=== PATIENT | female | born 1960 | race African-American/Black ===

== ENCOUNTER 2016-04-14 20:18 | Emergency (ER) | payer MEDICAID, OTHER ==
[2016-04-14] MEDS ORDERED: CYCLOBENZAPRINE 10MG STARTER 3 TAB BTL PO STA (21:09)
[2016-04-14] MEDS ORDERED: IBUPROFEN 600 MG STARTER PACK 4 TAB BTL PO STA (21:10)
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
[2016-04-14 21:30] VITALS: BP 120/70; PULSE 72; RESP 16; TEMP 97.6
--- NOTE | 2016-04-14 21:44 | XR ---
EXAMINATION TYPE: XR cervical spine comp DATE OF EXAM: 04/14/2016 9:06 PM COMPARISON: 08/25/2009 HISTORY: Trauma and pain TECHNIQUE: 5 views FINDINGS: C1-C7 is visualized on the lateral cervical spine view. Multilevel [id number]-br-[id number] cervical spondylosis appreciated. Accentuated lordotic curvature noted to o. There is no malalignment and no evidence of fracture. IMPRESSION: No acute radiographic process.
== END 2016-04-14 21:29 | disposition home or self-care (01) ==
LOC: EC 20:18
DX: S16.1XXA Strain of muscle, fascia and tendon at neck level, initial encounter (principal); V49.40XA Driver injured in collision with unspecified motor vehicles in traffic accident, initial encounter; Y92.410 Unspecified street and highway as the place of occurrence of the external cause; J45.909 Unspecified asthma, uncomplicated; Z79.51 Long term (current) use of inhaled steroids; Z88.0 Allergy status to penicillin; Z88.2 Allergy status to sulfonamides
CPT/HCPCS: 72050; 99283

== ENCOUNTER → 2016-04-25 | Outpatient (CLI) | payer MEDICAID ==
--- NOTE | 2016-04-25 18:15 | XR ---
EXAMINATION TYPE: XR lumbosacral spine min 4V DATE OF EXAM: 04/25/2016 5:42 PM COMPARISON: NONE HISTORY: Back pain TECHNIQUE: 5 views FINDINGS: Vertebra have normal alignment. Disc spaces are normal. Posterior elements appear intact. S acroiliac joints appear normal. There is no sign of a compression fracture. There is a 1 cm bone silvia nd in the right iliac bone. IMPRESSION: Negative lumbar spine exam. No fracture.
== END ==
LOC: RADXRMAIN 17:02
PROVIDERS: ATTEND Internal Medicine
DX: M54.5 Low back pain (principal)
CPT/HCPCS: 72110

== ENCOUNTER → 2017-03-21 | Outpatient (CLI) | payer MEDICAID ==
--- NOTE | 2017-03-22 09:09 | MM ---
Reason for exam: screening (asymptomatic). Last mammogram was performed 1 year and 3 months ago. History: Patient is postmenopausal and has history of high-risk lesion on a previous biopsy at age 49. Family history of breast cancer in maternal cousin. Benign MG pre op needle loc RT of the right breast, September 02, 2014. High risk US biopsy breast VAD RT of the right breast, August 20, 2014. High risk right breast needle localzation of the right breast, December 31, 2009. High risk right mammotome panel of the right breast, November 27, 2009. Benign US left guided VAD of the left breast, November 27, 2009. Benign excisional biopsy of the right breast, 2002. Benign excisional biopsy of the right breast, 1988. Took hormonal contraceptives for 17 years beginning at age 16. Took estrogen for 1 year beginning at age 45. Took progesterone for 1 year beginning at age 45. Physical Findings: A clinical breast exam by your physician is recommended on an annual basis and results should be correlated with mammographic findings. MG 3D Screening Mammo W/Cad Bilateral CC and MLO view(s) were taken. Prior study comparison: December 30, 2015, bilateral MG 3d screening mammo w/cad. April 17, 2015, right breast MG 3d diag mammo w/cad RT. Previous mammotome biopsy within the left breast. No significant changes when compared with prior studies. ASSESSMENT: Benign, BI-RAD 2 RECOMMENDATION: Routine screening mammogram of both breasts in 1 year.
== END | disposition home or self-care (01) ==
LOC: RADMAMWWP 15:01
PROVIDERS: ATTEND Internal Medicine
DX: Z12.31 Encounter for screening mammogram for malignant neoplasm of breast (principal)
CPT/HCPCS: 77063; 77067

== ENCOUNTER → 2017-05-08 | Outpatient (CLI) | payer MEDICAID ==
[2017-05-08 11:08] LABS: Basophils # (A) 0.1 k/uL (0-0.2); Basophils % (A) 1 %; Eosinophils # (A) 0.2 k/uL (0-0.7); Eosinophils % (A) 3 %; HGB 13.1 gm/dL (11.4-16.0); Lymphocytes % (A) 31 %; MCH 28.4 pg (25.0-35.0); MCV 88.9 fL (80.0-100.0); Mean Platelet Volume 6.9; Monocytes # (A) 0.3 k/uL (0-1.0); Monocytes % (A) 5 %; Neutrophils # (A) 3.7 k/uL (1.3-7.7); Neutrophils % (A) 58 %; Platelet Count 306 k/uL (150-450); RBC 4.61 m/uL (3.80-5.40); RDW 12.1 % (11.5-15.5); WBC 6.3 k/uL (3.8-10.6)
[2017-05-08 11:24] LABS: ALT 18 U/L (9-52); AST 17 U/L (14-36); Albumin 4.2 g/dL (3.5-5.0); Alkaline Phosphatase 80 U/L (38-126); Anion Gap 9 mmol/L; Blood Urea Nitrogen 12 mg/dL (7-17); Calcium 9.6 mg/dL (8.4-10.2); Carbon Dioxide 30 mmol/L (22-30); Chloride 103 mmol/L (98-107); Cholesterol 224 mg/dL (<200); Glucose 97 mg/dL (74-99); HDL Cholesterol 50 mg/dL (40-60); LDL Cholesterol,Calculated 155 mg/dL (0-99); Potassium 4.3 mmol/L (3.5-5.1); Sodium 142 mmol/L (137-145); Total Bilirubin 0.7 mg/dL (0.2-1.3); Total Protein 7.4 g/dL (6.3-8.2); Triglycerides 96 mg/dL (<150)
== END ==
LOC: LABWHC1 10:36
PROVIDERS: ATTEND Internal Medicine
DX: E55.9 Vitamin D deficiency, unspecified (principal); E03.9 Hypothyroidism, unspecified; E78.2 Mixed hyperlipidemia
CPT/HCPCS: 36415; 80053; 80061; 82306; 84443; 85025

== ENCOUNTER → 2019-03-27 | Outpatient (CLI) | payer MEDICAID ==
--- NOTE | 2019-03-27 12:17 | P.STRESS ---
- Stress Test Note Stress Test Results/Findings: Exam Performed: stress echo exercise Exam Date: 03/27/19 Reason for Exam: CHEST PAIN Height: 5 ft 7 in Weight: 226 kg Protocol: KAREEN Stage: 3 Duration of Exercise: 9:00 Resting Heart Rate: 71 Resting Blood Pressure: 104/52 Maximum Achieved Heart Rate: 138 Maximum Achieved Blood Pressure: 184/76 85% PMHR: 136 100% PMHR: 160 METS: 10.3 Technologist Comment: Stress Test Results/Findings: This is a 58-year-old female with history of of COPD and hypocholesteremia being evaluated for symptoms of chest pain and shortness of breath. Her new Stress data: Baseline EKG showed sinus rhythm with a AZ interval, QR latter day with mild early repolarization changes in the inferior leads. Blood pressure at rest is 100 452 with pulse rate of 71. Patient walked with a Kareen protocol for 9 minutes achieving a maximum heart rate of 138 with blood pressure of 1 8476. EKGs taken during and after the exercise did not reveal any acute changes of ischemia. Patient did not experience any chest pain. Echo data: Baseline echo images show normal wall motion and thickening. Exercise echo images showed augmentation of wall motion and thickening in all segments. Final impression: #1. Negative stress test #2. Negative stress echo
--- NOTE | 2019-03-28 16:28 | ECHOS ---
Stress Test Results/Findings: Exam Performed: stress echo exercise Exam Date: 03/27/19 Reason for Exam: CHEST PAIN Height: 5 ft 7 in Weight: 226 kg Protocol: KAREEN Stage: 3 Duration of Exercise: 9:00 Resting Heart Rate: 71 Resting Blood Pressure: 104/52 Maximum Achieved Heart Rate: 138 Maximum Achieved Blood Pressure: 184/76 85% PMHR: 136 100% PMHR: 160 METS: 10.3 Technologist Comment: Stress Test Results/Findings: This is a 58-year-old female with history of of COPD and hypocholesteremia being evaluated for symptoms of chest pain and shortness of breath. Her new Stress data: Baseline EKG showed sinus rhythm with a OK interval, QR bahai with mild early repolarization changes in the inferior leads. Blood pressure at rest is 100 452 with pulse rate of 71. Patient walked with a Kareen protocol for 9 minutes achieving a maximum heart rate of 138 with blood pressure of 1 8476. EKGs taken during and after the exercise did not reveal any acute changes of ischemia. Patient did not experience any chest pain. Echo data: Baseline echo images show normal wall motion and thickening. Exercise echo images showed augmentation of wall motion and thickening in all segments. Final impression: #1. Negative stress test #2. Negative stress echo MTDD
--- NOTE | 2019-04-02 10:37 | ECHOF ---
Referral Reason: MEASUREMENTS -------- HEIGHT: 0.0 cm WEIGHT: 0.0 kg BP: RVIDd: 3.9 cm (< 3.3) IVSd: 1.2 cm (0.6 - 1.1) LVIDd: 3.8 cm (3.9 - 5.3) LVPWd: 1.4 cm (0.6 - 1.1) IVSs: 1.6 cm LVIDs: 2.6 cm LVPWs: 1.4 cm LAESV Index (A-L): 36.38 ml/m Ao Diam: 3.0 cm (2.0 - 3.7) AV Cusp: 1.9 cm (1.5 - 2.6) LA Diam: 3.6 cm (2.7 - 3.8) MV EXCURSION: 14.577 mm (> 18.000) MV EF SLOPE: 115 mm/s (70 - 150) EPSS: 0.3 cm MV E Yonathan: 0.88 m/s MV DecT: 263 ms MV A Yonathan: 0.64 m/s MV E/A Ratio: 1.37 RAP: 15.00 mmHg RVSP: 38.44 mmHg FINDINGS -------- Sinus rhythm. This was a technically adequate study. The left ventricular size is normal. There is mild concentric left ventricular hypertrophy. Overa ll left ventricular systolic function is normal with, an EF between 55 - 60 %. The diastolic fillin g pattern is normal for the age of the patient 11.71. The right ventricle is mildly enlarged. LA is moderately dilated 34-39 ml/m2 The right atrium is mildly enlarged. Interatrial and interventricular septum intact. The aortic valve was not well visualized. There is no evidence of aortic regurgitation. There is no evidence of aortic stenosis. Mild mitral regurgitation is present. Mild tricuspid regurgitation present. There is mild pulmonary hypertension. The right ventricular systolic pressure, as measured by Doppler, is 38.44mmHg. There is no pulmonic regurgitation present. The aortic root size is normal. The inferior vena cava is dilated with poor inspiratory collapse which is consistent with estimated r ight atrial pressure of 15 mmHg. There is no pericardial effusion. CONCLUSIONS -------- 1. Sinus rhythm. 2. This was a technically adequate study. 3. The left ventricular size is normal. 4. There is mild concentric left ventricular hypertrophy. 5. Overall left ventricular systolic function is normal with, an EF between 55 - 60 %. 6. The diastolic filling pattern is normal for the age of the patient 11.71 7. The right ventricle is mildly enlarged. 8. LA is moderately dilated 34-39 ml/m2 9. The right atrium is mildly enlarged. 10. Interatrial and interventricular septum intact. 11. The aortic valve was not well visualized. 12. There is no evidence of aortic regurgitation. 13. There is no evidence of aortic stenosis. 14. Mild mitral regurgitation is present. 15. Mild tricuspid regurgitation present. 16. There is mild pulmonary hypertension. 17. The right ventricular systolic pressure, as measured by Doppler, is 38.44mmHg. 18. There is no pulmonic regurgitation present. 19. The aortic root size is normal. 20. The inferior vena cava is dilated with poor inspiratory collapse which is consistent with estimat ed right atrial pressure of 15 mmHg. 21. There is no pericardial effusion. LABOR DELIVERY SPECIALIST: Venice Sethi RDCS
== END | disposition home or self-care (01) ==
LOC: RADECHMAIN 08:16
PROVIDERS: ATTEND Internal Medicine Interventional Cardiology
DX: I08.1 Rheumatic disorders of both mitral and tricuspid valves (principal); I27.20 Pulmonary hypertension, unspecified; R06.09 Other forms of dyspnea
CPT/HCPCS: 93306; 93351

== ENCOUNTER 2019-07-05 13:52 | Inpatient (IN) | payer MEDICAID ==
[2019-07-05] MEDS ORDERED: IPRATROPIUM-ALBUTEROL 3 ML NEB INHALATION STA ×2 (14:21→15:52)
--- NOTE | 2019-07-05 14:57 | XR ---
EXAMINATION TYPE: XR chest 2V DATE OF EXAM: 07/05/2019 COMPARISON: Prior chest x-ray 08/25/2014 HISTORY: Fever and cough TECHNIQUE: Frontal and lateral views of the chest are obtained. FINDINGS: There is no focal air space opacity, pleural effusion, or pneumothorax seen. The cardiac silhouette size is within normal limits. The osseous structures are intact. Aorta is dense. There i s increased AP diameter of the chest with flattening the hemidiaphragms suggesting underlying COPD. T horacic spondylosis is present. IMPRESSION: No acute cardiopulmonary process.
[2019-07-05 15:29] LABS: Basophils # (A) 0.1 k/uL (0-0.2); Basophils % (A) 2 %; Eosinophils # (A) 0.3 k/uL (0-0.7); Eosinophils % (A) 4 %; HCT 42.2 % (34.0-46.0); HGB 13.1 gm/dL (11.4-16.0); Lymphocytes # (A) 1.8 k/uL (1.0-4.8); Lymphocytes % (A) 22 %; MCH 28.3 pg (25.0-35.0); MCHC 31.2 g/dL (31.0-37.0); MCV 90.8 fL (80.0-100.0); Mean Platelet Volume 7.7; Monocytes # (A) 0.4 k/uL (0-1.0); Monocytes % (A) 4 %; Neutrophils # (A) 5.4 k/uL (1.3-7.7); Neutrophils % (A) 67 %; Platelet Count 282 k/uL (150-450); RBC 4.64 m/uL (3.80-5.40); RDW 12.8 % (11.5-15.5); WBC 8.1 k/uL (3.8-10.6)
[2019-07-05] MEDS ORDERED: methylPREDNISolone SOD SUCCI 125 MG/2 ML VIAL IV STA (15:37)
[2019-07-05 15:38] LABS: ALT 8 U/L (4-34); AST 19 U/L (14-36); African American GFR (CKD) >90 (>60 ml/min/1.73 sqM); Albumin 4.2 g/dL (3.5-5.0); Alkaline Phosphatase 97 U/L (38-126); Anion Gap 7 mmol/L; Blood Urea Nitrogen 8 mg/dL (7-17); Calcium 9.4 mg/dL (8.4-10.2); Carbon Dioxide 28 mmol/L (22-30); Chloride 105 mmol/L (98-107); Glucose 92 mg/dL (74-99); INR 0.9 (<1.2); Non-African American GFR(CKD) >90 (>60 ml/min/1.73 sqM); Partial Thromboplastin Time 25.1 sec (22.0-30.0); Potassium 4.1 mmol/L (3.5-5.1); Prothrombin Time 9.6 sec (9.0-12.0); Sodium 140 mmol/L (137-145); Total Bilirubin 0.6 mg/dL (0.2-1.3); Total Protein 7.5 g/dL (6.3-8.2)
--- NOTE | 2019-07-05 16:34 | ED ---
URI HPI - General Chief Complaint: Upper Respiratory Infection Stated Complaint: SOB, cough Time Seen by Provider: 07/05/19 14:07 Source: patient Mode of arrival: ambulatory Limitations: no limitations - History of Present Illness Initial Comments: 4-year-old female history of asthma presenting today for chief complaint of shortness of breath cough. Patient states that yesterday she has had cough she states she has shortness of breath and feels like her previous asthma exacerbations. She states she has been doing home treatments which have been helping very slightly. Patient denies any leg swelling Pain with deep inspiration or any type of chest pain. Patient denies fevers. She denies diarrhea nausea vomiting or abdominal pain. Patient is no additional complaints upon arrival patient appears well oxygen saturation within acceptable limits slightly bradycardic does not appear toxic or in distress. - Related Data Home Medications Medication Instructions Recorded Confirmed Fluticasone/Salmeterol [Advair 1 puff INHALATION RT-BID 12/06/13 04/14/16 100-50 Diskus] Albuterol Inhaler (Mhu) [Ventolin 2 puff INHALATION RT-Q4H PRN 02/25/16 04/14/16 Hfa Inhaler (Mhu)] ALPRAZolam [Xanax] 0.25 mg PO BID PRN 04/14/16 04/14/16 Dicyclomine [Bentyl] 10 mg PO QID PRN 04/14/16 04/14/16 HYDROcodone/APAP 10-325MG [Brainerd 1 tab PO TID PRN 04/14/16 04/14/16 10-325] Montelukast [Singulair] 10 mg PO DAILY 04/14/16 04/14/16 Phentermine HCl [Adipex-P] 37.5 mg PO QAM 04/14/16 04/14/16 Previous Rx's Medication Instructions Recorded Cyclobenzaprine [Flexeril] 10 mg PO TID #15 tab 04/14/16 Diazepam [Valium] 2 mg PO TID #9 tab 04/14/16 Allergies Allergy/AdvReac Type Severity Reaction Status Date / Time Penicillins Allergy Rash/Hives Verified 04/14/16 20:27 Sulfa (Sulfonamide Allergy Rash/Hives Verified 04/14/16 20:27 Antibiotics) Review of Systems ROS Statement: Those systems with pertinent positive or pertinent negative responses have been documented in the HPI. ROS Other: All systems not noted in ROS Statement are negative. Past Medical History Past Medical History: Asthma, Thyroid Disorder Additional Past Medical History / Comment(s): FREQUENT DIARRHEA History of Any Multi-Drug Resistant Organisms: None Reported Past Surgical History: Bladder Surgery, Breast Surgery, Hysterectomy Additional Past Surgical History / Comment(s): THYROIDECTOMY Past Anesthesia/Blood Transfusion Reactions: No Reported Reaction Past Psychological History: No Psychological Hx Reported Smoking Status: Never smoker Past Alcohol Use History: None Reported Past Drug Use History: None Reported - Past Family History Mother Family Medical History: No Reported History General Exam - General Exam Comments Initial Comments: General: The patient is awake and alert, in no distress Eye: +3 mm pupils are equal, round and reactive to light, extra-ocular movements are intact. No nystagmus. There is normal conjunctiva bilaterally. No signs of icterus. No photophobia Ears, nose, mouth and throat: There are moist mucous membranes and no oral lesions. Oropharynx was not erythematous there is no tonsillar enlargement exudates or lesions. Uvula midline. No anterior cervical lymphadenopathy. Rhinorrhea, clear and bilateral nares. No tripoding, no drooling. Neck: The neck is supple, there is no tenderness or JVD. No nuchal rigidity Cardiovascular: There is a regular rate and rhythm. No murmur, rub or gallop is appreciated. Respiratory: Respirations are non-labored, breath sounds are equal. Inspiratory and expiratory wheeze, No stridor, rales, or rhonchi. No retractions or abdominal breathing. Gastrointestinal: Soft, non-distended, non-tender abdomen without masses or organomegaly noted. There is no rebound or guarding present. Bowel sounds are unremarkable. Musculoskeletal: Normal ROM, no tenderness. Strength 5/5. Sensation intact. Radial pulses equal bilaterally 2+. Neurological: A&O x 3. CN II-XII intact grossly, There are no obvious motor or sensory deficits. Coordination appears grossly intact. Speech appears normal, no muffling. Skin: Skin is warm and dry and no rashes or lesions are noted. No extremity edema Psychiatric: Cooperative Limitations: no limitations Course Vital Signs 07/05/19 07/05/19 07/05/19 14:00 14:50 15:00 Temperature 98.4 F Pulse Rate 65 58 L 54 L Respiratory 18 Rate Blood Pressure 123/80 O2 Sat by Pulse 99 Oximetry Medical Decision Making - Medical Decision Making 58 year female presenting for shortness of breath and asthmatic. Patient has diminished lung sounds with poor movement especially with expiration. With both inspiratory and expiratory wheeze. Slight improvement with breathing treatment however patietn continues to complain of feeling like her breath is tight and SOB. Patient will be admitted for multiple treatments/IV steroids. Patient is agreeable to admission and care plan. Covid (-). No fevers. [facility] spoke with admitting provider who is agreeable. - Lab Data Result diagrams: 07/05/19 15:15 07/05/19 15:15 Lab Results 07/05/19 07/05/19 07/05/19 Range/Units 14:20 15:15 15:15 WBC 8.1 (3.8-10.6) k/uL RBC 4.64 (3.80-5.40) m/uL Hgb 13.1 (11.4-16.0) gm/dL Hct 42.2 (34.0-46.0) % MCV 90.8 (80.0-100.0) fL MCH 28.3 (25.0-35.0) pg MCHC 31.2 (31.0-37.0) g/dL RDW 12.8 (11.5-15.5) % Plt Count 282 (150-450) k/uL Neutrophils % 67 % Lymphocytes % 22 % Monocytes % 4 % Eosinophils % 4 % Basophils % 2 % Neutrophils # 5.4 (1.3-7.7) k/uL Lymphocytes # 1.8 (1.0-4.8) k/uL Monocytes # 0.4 (0-1.0) k/uL Eosinophils # 0.3 (0-0.7) k/uL Basophils # 0.1 (0-0.2) k/uL PT 9.6 (9.0-12.0) sec INR 0.9 (<1.2) APTT 25.1 (22.0-30.0) sec Sodium (137-145) mmol/L Potassium (3.5-5.1) mmol/L Chloride (98-107) mmol/L Carbon Dioxide (22-30) mmol/L Anion Gap mmol/L BUN (7-17) mg/dL Creatinine (0.52-1.04) mg/dL Est GFR (CKD-EPI)AfAm (>60 ml/min/1.73 sqM) Est GFR (CKD-EPI)NonAf (>60 ml/min/1.73 sqM) Glucose (74-99) mg/dL Plasma Lactic Acid Ssuhant (0.7-2.0) mmol/L Calcium (8.4-10.2) mg/dL Total Bilirubin (0.2-1.3) mg/dL AST (14-36) U/L ALT (4-34) U/L Alkaline Phosphatase (38-126) U/L Troponin I (0.000-0.034) ng/mL NT-Pro-B Natriuret Pep pg/mL Total Protein (6.3-8.2) g/dL Albumin (3.5-5.0) g/dL Coronavirus (PCR) Not Detected (Not Detectd) 07/05/19 07/05/19 07/05/19 Range/Units 15:15 15:15 15:15 WBC (3.8-10.6) k/uL RBC (3.80-5.40) m/uL Hgb (11.4-16.0) gm/dL Hct (34.0-46.0) % MCV (80.0-100.0) fL MCH (25.0-35.0) pg MCHC (31.0-37.0) g/dL RDW (11.5-15.5) % Plt Count (150-450) k/uL Neutrophils % % Lymphocytes % % Monocytes % % Eosinophils % % Basophils % % Neutrophils # (1.3-7.7) k/uL Lymphocytes # (1.0-4.8) k/uL Monocytes # (0-1.0) k/uL Eosinophils # (0-0.7) k/uL Basophils # (0-0.2) k/uL PT (9.0-12.0) sec INR (<1.2) APTT (22.0-30.0) sec Sodium 140 (137-145) mmol/L Potassium 4.1 (3.5-5.1) mmol/L Chloride 105 (98-107) mmol/L Carbon Dioxide 28 (22-30) mmol/L Anion Gap 7 mmol/L BUN 8 (7-17) mg/dL Creatinine 0.64 (0.52-1.04) mg/dL Est GFR (CKD-EPI)AfAm >90 (>60 ml/min/1.73 sqM) Est GFR (CKD-EPI)NonAf >90 (>60 ml/min/1.73 sqM) Glucose 92 (74-99) mg/dL Plasma Lactic Acid Sushant 0.9 (0.7-2.0) mmol/L Calcium 9.4 (8.4-10.2) mg/dL Total Bilirubin 0.6 (0.2-1.3) mg/dL AST 19 (14-36) U/L ALT 8 (4-34) U/L Alkaline Phosphatase 97 (38-126) U/L Troponin I <0.012 (0.000-0.034) ng/mL NT-Pro-B Natriuret Pep pg/mL Total Protein 7.5 (6.3-8.2) g/dL Albumin 4.2 (3.5-5.0) g/dL Coronavirus (PCR) (Not Detectd) 07/05/19 Range/Units 15:15 WBC (3.8-10.6) k/uL RBC (3.80-5.40) m/uL Hgb (11.4-16.0) gm/dL Hct (34.0-46.0) % MCV (80.0-100.0) fL MCH (25.0-35.0) pg MCHC (31.0-37.0) g/dL RDW (11.5-15.5) % Plt Count (150-450) k/uL Neutrophils % % Lymphocytes % % Monocytes % % Eosinophils % % Basophils % % Neutrophils # (1.3-7.7) k/uL Lymphocytes # (1.0-4.8) k/uL Monocytes # (0-1.0) k/uL Eosinophils # (0-0.7) k/uL Basophils # (0-0.2) k/uL PT (9.0-12.0) sec INR (<1.2) APTT (22.0-30.0) sec Sodium (137-145) mmol/L Potassium (3.5-5.1) mmol/L Chloride (98-107) mmol/L Carbon Dioxide (22-30) mmol/L Anion Gap mmol/L BUN (7-17) mg/dL Creatinine (0.52-1.04) mg/dL Est GFR (CKD-EPI)AfAm (>60 ml/min/1.73 sqM) Est GFR (CKD-EPI)NonAf (>60 ml/min/1.73 sqM) Glucose (74-99) mg/dL Plasma Lactic Acid Sushant (0.7-2.0) mmol/L Calcium (8.4-10.2) mg/dL Total Bilirubin (0.2-1.3) mg/dL AST (14-36) U/L ALT (4-34) U/L Alkaline Phosphatase (38-126) U/L Troponin I (0.000-0.034) ng/mL NT-Pro-B Natriuret Pep 60 pg/mL Total Protein (6.3-8.2) g/dL Albumin (3.5-5.0) g/dL Coronavirus (PCR) (Not Detectd) Disposition Clinical Impression: Dyspnea, Wheeze, Decreased lung sounds Disposition: ADMITTED IP TO THIS [facility] Condition: Stable Is patient prescribed a controlled substance at d/c from ED?: No Time of Disposition: 16:34 Decision to Admit Reason: Admit from EC Decision Date: 07/05/19 Decision Time: 16:34
[2019-07-05] MEDS ORDERED: IPRATROPIUM-ALBUTEROL 3 ML NEB INHALATION PRN (16:57)
[2019-07-05] MEDS ORDERED: ALBUTEROL NEBULIZED 2.5 MG/3 ML INHALATION PRN (19:28)
[2019-07-05] MEDS: IPRATROPIUM-ALBUTEROL 3 ML NEB INHALATION SCH (20:30)
[2019-07-05] MEDS: DICYCLOMINE 20 MG TAB PO SCH (21:23)
[2019-07-05] MEDS: ENOXAPARIN 40 MG/0.4 ML SYRINGE SQ SCH (21:23)
[2019-07-05] MEDS: TRIAMCINOLONE ACET 0.1% OINTMENT 15 GM TUBE TOPICAL SCH (21:23)
[2019-07-05] MEDS: FAMOTIDINE 20 MG TAB PO SCH (21:23)
[2019-07-05] MEDS: PANTOPRAZOLE 40 MG TABLET PO SCH (21:23)
[2019-07-05] MEDS: MONTELUKAST 10 MG TAB PO SCH (21:24)
[2019-07-05] MEDS: PRAVASTATIN SODIUM 40 MG TAB PO SCH (21:24)
[2019-07-06] MEDS: HYDROcodone/APAP 10-325MG 1 EACH TAB PO PRN ×2 (00:28→23:10)
[2019-07-06] MEDS: methylPREDNISolone SOD SUCCI 125 MG/2 ML VIAL IV SCH ×5 (00:28→23:10)
[2019-07-06 06:38] LABS: Basophils % (A) 0 %; Eosinophils # (A) 0.1 k/uL (0-0.7); Eosinophils % (A) 1 %; HGB 13.2 gm/dL (11.4-16.0); Hypochromasia Slight; Lymphocytes # (A) 1.3 k/uL (1.0-4.8); Lymphocytes % (A) 13 %; MCH 28.5 pg (25.0-35.0); MCHC 31.3 g/dL (31.0-37.0); MCV 91.1 fL (80.0-100.0); Mean Platelet Volume 7.7; Monocytes # (A) 0.1 k/uL (0-1.0); Monocytes % (A) 1 %; Neutrophils # (A) 8.2 k/uL (1.3-7.7); Neutrophils % (A) 85 %; Platelet Count 349 k/uL (150-450); RBC 4.61 m/uL (3.80-5.40); RDW 12.6 % (11.5-15.5); WBC 9.6 k/uL (3.8-10.6)
[2019-07-06 06:51] LABS: ALT 11 U/L (4-34); AST 19 U/L (14-36); African American GFR (CKD) >90 (>60 ml/min/1.73 sqM); Albumin 4.4 g/dL (3.5-5.0); Alkaline Phosphatase 93 U/L (38-126); Anion Gap 12 mmol/L; Blood Urea Nitrogen 11 mg/dL (7-17); Calcium 9.8 mg/dL (8.4-10.2); Carbon Dioxide 24 mmol/L (22-30); Chloride 104 mmol/L (98-107); Glucose 159 mg/dL (74-99); Non-African American GFR(CKD) >90 (>60 ml/min/1.73 sqM); Potassium 4.9 mmol/L (3.5-5.1); Sodium 140 mmol/L (137-145); Total Bilirubin 0.5 mg/dL (0.2-1.3); Total Protein 7.9 g/dL (6.3-8.2)
[2019-07-06] MEDS: IPRATROPIUM-ALBUTEROL 3 ML NEB INHALATION SCH ×4 (07:26→19:29)
[2019-07-06] MEDS: TRIAMCINOLONE ACET 0.1% OINTMENT 15 GM TUBE TOPICAL SCH ×2 (09:17→23:12)
--- NOTE | 2019-07-06 13:53 | CONS ---
CONSULTATION PULMONARY/CRITICAL CARE CONSULTATION: DATE OF SERVICE: July 06, 2019 REASON FOR CONSULTATION: Asthma exacerbation/shortness of breath. 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 She has a longstanding history of asthma and the fact that I used to take care of her in the office but have not seen her recently. She apparently comes in with about a week's worth of increasing cough, shortness of breath, chest tightness and wheezing. She is coughing up some occasional phlegm. She has been using her rescue medication more frequently without benefit. She apparently has albuterol inhaler and also Advair that she uses. Also, she recently either saw her primary doctor or talked to him on the phone and was prescribed some antibiotic, but did not start it. Because she was not improving, because the shortness of breath, cough, wheezing and chest tightness were getting worse, she came to the emergency room where she was evaluated and admitted. Her COVID-19 testing was negative. She denies any chest pain or pressure. She denies any fever or chills. There is no nausea, vomiting or diarrhea. There is no abdominal pain. She denies any genitourinary complaints. MEDICATIONS: Reviewed. She has a history of being on Advair, albuterol inhaler, Xanax, Bentyl, [place] Singulair, and Adipex-P. She has also been on Valium and Flexeril. ALLERGIES: Allergies are PENICILLIN AND SULFA ANTIBIOTICS. MEDICAL HISTORY: Includes chronic bronchial asthma as well as irritable bowel syndrome. She apparently also has a "a "thyroid disorder, but I do not see that she is on any medication for her thyroid gland. SURGICAL HISTORY: Includes bladder surgery, breast surgery, hysterectomy, and thyroidectomy. SOCIAL HISTORY: Significant that she is a lifelong nonsmoker. Denies any alcohol or illicit drug use. 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 FAMILY HISTORY: Positive for mother with no major health issues. She does not know her father's health history. REVIEW OF SYSTEMS: CONSTITUTIONAL negative. NEUROLOGIC negative. HEENT negative. CARDIOVASCULAR negative. PULMONARY: Shortness of breath. Chest tightness, wheezing and cough, chest congestion and occasional phlegm production. GI negative. negative. RHEUMATOLOGIC negative. IMMUNOLOGIC negative. ENDOCRINOLOGIC negative. DERMATOLOGIC negative. PHYSICAL EXAMINATION: VITAL SIGNS: Current vital signs are reviewed. Her temperature is 98.2. Heart rate 68, respiratory rate 16, blood pressure 116/58 mean 77, and room air saturation 95%. Appears in no acute distress. HEENT: Examination is grossly unremarkable. No supplemental oxygen. NECK: Supple. Full range of motion. No adenopathy, thyromegaly or neck vein distention. CARDIOVASCULAR: Examination reveals regular rhythm and rate. S1, S2 normal. No S3, S4, or murmur. Heart rate in the high 60s to low 70s. LUNGS: Reveal some expiratory wheezes and rhonchi. There is prolongation on forced maneuver. No crackles. Breath sounds equal bilaterally. Adventitious lung sounds are more prominent on forced maneuver. ABDOMEN: Soft, bowel sounds are heard. EXTREMITIES are intact. No cyanosis, clubbing, or edema. SKIN: Without rash. NEUROLOGIC: Examination is brief but nonfocal. CBC is reviewed. White count 9.6, hemoglobin 13.2, hematocrit 42, platelet count 349,000. Sodium 140, potassium 4.9, chloride 104, CO2 24, anion gap is 12. BUN and creatinine were 11 and 0.65. The rest of the comprehensive metabolic profile was negative. COVID- 19 testing by nasopharyngeal swab was negative. PT/INR PTT all normal. A chest x-ray was done. It showed no acute cardiopulmonary disease. Medications are reviewed. From the asthma standpoint, we have her on albuterol inhaler, albuterol updrafts, Symbicort, Singulair, and Solu-Medrol. ASSESSMENT: 1. Asthma exacerbation. 2. Irritable bowel syndrome. PLAN: The patient seems to be doing relatively well. We went ahead and added Symbicort 160/4.5, two puffs twice a day. She was already on albuterol, Solu-Medrol, and Singulair. Additional recommendations and suggestions are forthcoming. I do not believe the patient needs an oral antibiotic at this time. If she does given orally about antibiotic, I treat would treat her for a very short period of time, maybe only 3 days. Additional recommendations and suggestions are forthcoming. I did alert her to the fact that her Covid-19 testing was negative. MMODL / IJN: [id number] /
--- NOTE | 2019-07-06 14:53 | P.HPIM ---
History of Present Illness H&P Date: 07/06/19 Chief Complaint: Shortness of breath and cough Sara Sam is a 58-year-old female who presented to [facility] emergency room with a chief complaint of worsening shortness of breath and cough for the last 7 days, she was treated as outpatient with oral antibiotics and oral steroids but her condition continued to worsen, she was evaluated in the emergency room she was started on IV steroids and inhaled bronchodilators and was admitted to medical floor. She has known history of asthma, she was seen in the past by Dr. Garces, consultation was initiated in the emergency room. 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 Patient was seen and examined on the medical floor she is alert and oriented 3 in no apparent distress she is complaining of shortness of breath with any a ctivity and continue was cough otherwise she denies any complaints there is no fever or chills no headache or dizziness no chest pain no nausea or vomiting no abdominal pain no diarrhea no burning was urination no frequency or urgency and no hematuria Past Medical History Past Medical History: Asthma, Thyroid Disorder Additional Past Medical History / Comment(s): FREQUENT DIARRHEA History of Any Multi-Drug Resistant Organisms: None Reported Past Surgical History: Bladder Surgery, Breast Surgery, Hysterectomy Additional Past Surgical History / Comment(s): THYROIDECTOMY Past Anesthesia/Blood Transfusion Reactions: No Reported Reaction Past Psychological History: No Psychological Hx Reported Smoking Status: Never smoker Past Alcohol Use History: None Reported Past Drug Use History: None Reported - Past Family History Mother Family Medical History: No Reported History Father Family Medical History: No Reported History Medications and Allergies Home Medications Medication Instructions Recorded Confirmed Type ALPRAZolam [Xanax] 0.25 mg PO HS PRN 04/14/16 07/05/19 History HYDROcodone/APAP 10-325MG [[place] 1 tab PO TID PRN 04/14/16 07/05/19 History 10-325] Montelukast [Singulair] 10 mg PO HS 04/14/16 07/05/19 History Albuterol Sulfate [Ventolin HFA] 2 puff INHALATION RT-Q6H PRN 07/05/19 07/05/19 History Dicyclomine [Bentyl] 80 mg PO HS 07/05/19 07/05/19 History Famotidine 40 mg PO HS 07/05/19 07/05/19 History Pantoprazole [Protonix] 80 mg PO HS 07/05/19 07/05/19 History Pravastatin Sodium [Pravachol] 40 mg PO HS 07/05/19 07/05/19 History Triamcinolone 0.1% Ointment 1 applic TOPICAL BID 07/05/19 07/05/19 History [Kenalog 0.1% Ointment] Allergies Allergy/AdvReac Type Severity Reaction Status Date / Time Penicillins Allergy Rash/Hives Verified 07/05/19 19:14 Sulfa (Sulfonamide Allergy Rash/Hives Verified 07/05/19 19:14 Antibiotics) Physical Exam Vitals: Vital Signs Temp Pulse Pulse Resp BP BP Pulse Ox 07/06/19 12:55 97.4 F L 73 17 125/69 100 07/06/19 11:16 68 07/06/19 11:10 64 07/06/19 08:00 72 16 07/06/19 07:48 72 07/06/19 07:35 68 07/06/19 04:59 98.2 F 72 16 115/58 95 07/05/19 21:28 98.6 F 83 16 147/91 99 07/05/19 20:30 60 07/05/19 18:09 97.8 F 60 17 142/76 98 07/05/19 17:13 84 18 135/91 97 07/05/19 15:00 54 L 07/05/19 14:50 58 L Intake and Output 07/05/19 07/06/19 07/06/19 22:59 06:59 14:59 Intake Total 240 590 Balance 240 590 Intake: Oral 240 590 Other: # Voids 2 2 Weight 83.915 kg In general patient is alert and oriented 3 in no apparent distress HEENT head normocephalic and atraumatic Neck is supple no JVD no goiter no lymphadenopathy Chest exam reveals a few scattered crackles, prolonged expiration with wheezing Cardiac exam reveals regular heart sounds no gallops no murmurs Abdomen is soft nontender no organomegaly with normal bowel sounds Extremity exam reveals no edema no cyanosis or clubbing Neurological examination reveals no gross focal deficit Results CBC & Chem 7: 07/06/19 06:03 07/06/19 06:03 Labs: Abnormal Lab Results - Last 24 Hours (Table) 07/06/19 07/06/19 Range/Units 06:03 06:03 Neutrophils # 8.2 H (1.3-7.7) k/uL Glucose 159 H (74-99) mg/dL Thrombosis Risk Factor Assmnt - Choose All That Apply Any of the Below Risk Factors Present?: Yes Each Factor Represents 1 point: Age 41-60 years Thrombosis Risk Factor Assessment Total Risk Factor Score: 1 Thrombosis Risk Factor Assessment Level: Low Risk Assessment and Plan Plan: 1. Acute asthma exacerbation, patient was started on IV steroids inhaled bronchodilators, and inhaled steroids she is improving gradually 2. Underlying history of gastroesophageal reflux disease maintained on Protonix continue 3. Underlying history of hyperlipidemia maintained on Pravachol continue 4. Underlying history of degenerative disc disease with chronic back pain maintained on [place] for pain management 5. Anxiety disorder maintained on Xanax as needed 6. Irritable bowel disease maintained on Bentyl Medication and labs were reviewed patient is improving Continue was current management Possible discharge in the next 1-2 days
[2019-07-06] MEDS: SYMBICORT 160-4.5 MCG INHALER INHALATION SCH (19:30)
[2019-07-06 20:04] LABS: Glucose,Whole Blood 181 mg/dL (75-99)
[2019-07-06] MEDS: MONTELUKAST 10 MG TAB PO SCH (21:27)
[2019-07-06] MEDS: DICYCLOMINE 20 MG TAB PO SCH (21:27)
[2019-07-06] MEDS: PRAVASTATIN SODIUM 40 MG TAB PO SCH (21:27)
[2019-07-06] MEDS: PANTOPRAZOLE 40 MG TABLET PO SCH (21:28)
[2019-07-06] MEDS: FAMOTIDINE 20 MG TAB PO SCH (21:28)
[2019-07-06] MEDS: ENOXAPARIN 40 MG/0.4 ML SYRINGE SQ SCH (21:28)
[2019-07-07] MEDS: ALPRAZolam 0.25 MG TAB PO PRN ×2 (00:19→20:43)
[2019-07-07] MEDS: methylPREDNISolone SOD SUCCI 125 MG/2 ML VIAL IV SCH ×4 (06:14→23:31)
[2019-07-07] MEDS: TRIAMCINOLONE ACET 0.1% OINTMENT 15 GM TUBE TOPICAL SCH ×2 (08:02→20:42)
[2019-07-07] MEDS: SYMBICORT 160-4.5 MCG INHALER INHALATION SCH ×2 (08:05→19:58)
[2019-07-07] MEDS: IPRATROPIUM-ALBUTEROL 3 ML NEB INHALATION SCH ×4 (08:05→19:58)
--- NOTE | 2019-07-07 11:25 | P.PN ---
Subjective Progress Note Date: 07/07/19 Principal diagnosis: Acute exacerbation of moderate persistent chronic bronchial asthma The patient is seen today 07/07/2019 in follow-up on the regular medical floor. She is awake and alert in no acute distress. Currently sitting up in bed. Breathing a bit easier today compared to yesterday. She is maintaining good O2 saturations up to 100% on room air. She's been afebrile. Hemodynamically stable. She's been on DuoNeb inhalations, Symbicort, IV Solu-Medrol, Singulair. Objective - Vital Signs Vital signs: Vital Signs Temp 98.0 F 07/07/19 05:00 Pulse 77 07/07/19 08:15 Resp 16 07/07/19 08:00 BP 116/64 07/07/19 05:00 Pulse Ox 100 07/07/19 05:00 Intake & Output 07/06/19 07/07/19 07/07/19 18:59 06:59 18:59 Intake Total 1080 1180 Balance 1080 1180 Intake: Oral 1080 1180 Other: Voiding Method Toilet Toilet # Voids 3 2 - Exam GENERAL EXAM: Alert, active, very pleasant 58-year-old female patient, on room air, comfortable in no apparent distress. HEAD: Normocephalic. EYES: Normal reaction of pupils, equal size. NOSE: Clear with pink turbinates. THROAT: No erythema or exudates. NECK: No masses, no JVD. CHEST: No chest wall deformity. LUNGS: Equal air entry with end expiratory wheeze. CVS: S1 and S2 normal with no audible murmur, regular rhythm. ABDOMEN: No hepatosplenomegaly, normal bowel sounds, no guarding or rigidity. SPINE: No scoliosis or deformity SKIN: No rashes CENTRAL NERVOUS SYSTEM: No focal deficits, tone is normal in all 4 extremities. EXTREMITIES: There is no peripheral edema. No clubbing, no cyanosis. Peripheral pulses are intact. - Labs CBC & Chem 7: 07/06/19 06:03 07/06/19 06:03 Labs: Abnormal Lab Results - Last 24 Hours (Table) 07/06/19 Range/Units 20:03 POC Glucose (mg/dL) 181 H (75-99) mg/dL Assessment and Plan Assessment: Acute exacerbation of moderate persistent chronic bronchial asthma History of irritable bowel syndrome Lifelong nonsmoker Plan The patient was seen and evaluated by Dr. Cochran She is improved but not quite back to her baseline Continue the current medications Probable discharge in the a.m. I, the cosigning physician, performed a history & physical examination of the patient. Lungs sounds with bilateral end expiratory wheeze. Maintaining good O2 saturations in the 90s on room air. I discussed the assessment and plan of care with my nurse practitioner, Karina Parker. I attest to the above note as dictated by her.
[2019-07-07 11:52] LABS: Glucose,Whole Blood 160 mg/dL (75-99)
--- NOTE | 2019-07-07 13:20 | P.PN ---
Subjective Progress Note Date: 07/07/19 Sara Sam is a 58-year-old female who presented to [facility] emergency room with a chief complaint of worsening shortness of breath and cough for the last 7 days, she was treated as outpatient with oral antibiotics and oral steroids but her condition continued to worsen, she was evaluated in the emergency room she was started on IV steroids and inhaled bronchodilators and was admitted to medical floor. She has known history of asthma, she was seen in the past by Dr. Garces, consultation was initiated in the emergency room. 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 Patient was seen and examined on the medical floor she is alert and oriented 3 in no apparent distress she is complaining of shortness of breath with any activity and continue was cough otherwise she denies any complaints there is no fever or chills no headache or dizziness no chest pain no nausea or vomiting no abdominal pain no diarrhea no burning was urination no frequency or urgency and no hematuria On 07/07/2019 patient was seen and examined on the medical floor she is alert and oriented 3 in no apparent distress there is no fever or chills no headache or dizziness no chest pain she is still having shortness of breath and wheezing with any activity she is still complaining of cough there is no nausea or vomiting no abdominal pain no diarrhea and no urinary symptoms Objective - Vital Signs Vital signs: Vital Signs Temp 98.0 F 07/07/19 05:00 Pulse 85 07/07/19 11:28 Resp 16 07/07/19 08:00 BP 116/64 07/07/19 05:00 Pulse Ox 100 07/07/19 05:00 Intake & Output 07/06/19 07/07/19 07/07/19 18:59 06:59 18:59 Intake Total 1080 1180 Balance 1080 1180 Intake: Oral 1080 1180 Other: Voiding Method Toilet Toilet # Voids 3 2 - Exam In general patient is alert and oriented 3 in no apparent distress HEENT head normocephalic and atraumatic Neck is supple no JVD no goiter no lymphadenopathy Chest exam reveals a few scattered crackles, prolonged expiration with wheezing Cardiac exam reveals regular heart sounds no gallops no murmurs Abdomen is soft nontender no organomegaly with normal bowel sounds Extremity exam reveals no edema no cyanosis or clubbing Neurological examination reveals no gross focal deficit - Labs CBC & Chem 7: 07/06/19 06:03 07/06/19 06:03 Labs: Abnormal Lab Results - Last 24 Hours (Table) 07/06/19 07/07/19 Range/Units 20:03 11:49 POC Glucose (mg/dL) 181 H 160 H (75-99) mg/dL Assessment and Plan Plan: 1. Acute asthma exacerbation, patient was started on IV steroids inhaled bronchodilators, and inhaled steroids she is improving gradually 2. Underlying history of gastroesophageal reflux disease maintained on Protonix continue 3. Underlying history of hyperlipidemia maintained on Pravachol continue 4. Underlying history of degenerative disc disease with chronic back pain maintained on [place] for pain management 5. Anxiety disorder maintained on Xanax as needed 6. Irritable bowel disease maintained on Bentyl Medication and labs were reviewed patient is improving Continue was current management Possible discharge in am
[2019-07-07] MEDS: INSULIN ASPART (NovoLOG) 100 UNIT/ML VIAL SQ SCH ×3 (13:47→20:41)
[2019-07-07 17:09] LABS: Glucose,Whole Blood 179 mg/dL (75-99)
[2019-07-07] MEDS: HYDROcodone/APAP 10-325MG 1 EACH TAB PO PRN (19:25)
[2019-07-07 19:59] LABS: Glucose,Whole Blood 178 mg/dL (75-99)
[2019-07-07] MEDS: FAMOTIDINE 20 MG TAB PO SCH (20:41)
[2019-07-07] MEDS: PANTOPRAZOLE 40 MG TABLET PO SCH (20:41)
[2019-07-07] MEDS: ENOXAPARIN 40 MG/0.4 ML SYRINGE SQ SCH (20:41)
[2019-07-07] MEDS: DICYCLOMINE 20 MG TAB PO SCH (20:41)
[2019-07-07] MEDS: PRAVASTATIN SODIUM 40 MG TAB PO SCH (20:41)
[2019-07-07] MEDS: MONTELUKAST 10 MG TAB PO SCH (20:41)
[2019-07-08] MEDS: methylPREDNISolone SOD SUCCI 125 MG/2 ML VIAL IV SCH ×2 (05:48→12:43)
[2019-07-08 06:18] LABS: Basophils % (A) 0 %; Eosinophils # (A) 0.1 k/uL (0-0.7); Eosinophils % (A) 0 %; HCT 40.3 % (34.0-46.0); HGB 12.7 gm/dL (11.4-16.0); Hypochromasia Slight; Lymphocytes # (A) 1.5 k/uL (1.0-4.8); Lymphocytes % (A) 10 %; MCHC 31.4 g/dL (31.0-37.0); MCV 92.3 fL (80.0-100.0); Mean Platelet Volume 8.2; Monocytes # (A) 0.6 k/uL (0-1.0); Monocytes % (A) 4 %; Neutrophils # (A) 13.6 k/uL (1.3-7.7); Neutrophils % (A) 86 %; Platelet Count 334 k/uL (150-450); RBC 4.36 m/uL (3.80-5.40); WBC 15.8 k/uL (3.8-10.6)
[2019-07-08 06:26] LABS: ALT 9 U/L (4-34); AST 13 U/L (14-36); African American GFR (CKD) >90 (>60 ml/min/1.73 sqM); Alkaline Phosphatase 81 U/L (38-126); Anion Gap 8 mmol/L; Blood Urea Nitrogen 17 mg/dL (7-17); Calcium 9.5 mg/dL (8.4-10.2); Carbon Dioxide 28 mmol/L (22-30); Chloride 102 mmol/L (98-107); Glucose 170 mg/dL (74-99); Non-African American GFR(CKD) >90 (>60 ml/min/1.73 sqM); Potassium 4.6 mmol/L (3.5-5.1); Sodium 138 mmol/L (137-145); Total Bilirubin 0.3 mg/dL (0.2-1.3); Total Protein 7.1 g/dL (6.3-8.2)
[2019-07-08 07:01] LABS: Glucose,Whole Blood 144 mg/dL (75-99)
[2019-07-08] MEDS: INSULIN ASPART (NovoLOG) 100 UNIT/ML VIAL SQ SCH ×2 (07:49→12:43)
[2019-07-08] MEDS: TRIAMCINOLONE ACET 0.1% OINTMENT 15 GM TUBE TOPICAL SCH (07:50)
[2019-07-08] MEDS: SYMBICORT 160-4.5 MCG INHALER INHALATION SCH (08:53)
[2019-07-08] MEDS: IPRATROPIUM-ALBUTEROL 3 ML NEB INHALATION SCH ×2 (08:53→12:49)
--- NOTE | 2019-07-08 11:21 | P.PN ---
Subjective Progress Note Date: 07/08/19 Principal diagnosis: Acute exacerbation of moderate persistent chronic bronchial asthma The patient is seen today 07/07/2019 in follow-up on the regular medical floor. She is awake and alert in no acute distress. Currently sitting up in bed. Breathing a bit easier today compared to yesterday. She is maintaining good O2 saturations up to 100% on room air. She's been afebrile. Hemodynamically stable. She's been on DuoNeb inhalations, Symbicort, IV Solu-Medrol, Singulair. The patient is seen today 07/08/2019 in follow-up on the regular medical floor. She is currently resting comfortably in bed. Awake and alert in no acute distress. She is breathing easier today compared to yesterday. Nearly back to her baseline. No worsening shortness of breath, cough or congestion. Maintaining good O2 saturations up to 99% on room air. She is anxious to go home. Objective - Vital Signs Vital signs: Vital Signs Temp 98.6 F 07/08/19 05:00 Pulse 82 07/08/19 09:05 Resp 16 07/08/19 05:00 BP 116/63 07/08/19 05:00 Pulse Ox 99 07/08/19 05:00 Intake & Output 07/07/19 07/08/19 07/08/19 18:59 06:59 18:59 Intake Total 540 2250 Balance 540 2250 Intake: Oral 540 2250 Other: Voiding Method Toilet Toilet # Voids 2 3 - Exam GENERAL EXAM: Alert, active, very pleasant 58-year-old female patient, on room air, comfortable in no apparent distress. HEAD: Normocephalic. EYES: Normal reaction of pupils, equal size. NOSE: Clear with pink turbinates. THROAT: No erythema or exudates. NECK: No masses, no JVD. CHEST: No chest wall deformity. LUNGS: Equal air entry with end expiratory wheeze. CVS: S1 and S2 normal with no audible murmur, regular rhythm. ABDOMEN: No hepatosplenomegaly, normal bowel sounds, no guarding or rigidity. SPINE: No scoliosis or deformity SKIN: No rashes CENTRAL NERVOUS SYSTEM: No focal deficits, tone is normal in all 4 extremities. EXTREMITIES: There is no peripheral edema. No clubbing, no cyanosis. Peripheral pulses are intact. - Labs CBC & Chem 7: 07/08/19 05:33 07/08/19 05:33 Labs: Abnormal Lab Results - Last 24 Hours (Table) 07/07/19 07/07/19 07/07/19 Range/Units 11:49 17:07 19:58 WBC (3.8-10.6) k/uL Neutrophils # (1.3-7.7) k/uL Glucose (74-99) mg/dL POC Glucose (mg/dL) 160 H 179 H 178 H (75-99) mg/dL AST (14-36) U/L 07/08/19 07/08/19 07/08/19 Range/Units 05:33 05:33 06:59 WBC 15.8 H (3.8-10.6) k/uL Neutrophils # 13.6 H (1.3-7.7) k/uL Glucose 170 H (74-99) mg/dL POC Glucose (mg/dL) 144 H (75-99) mg/dL AST 13 L (14-36) U/L Assessment and Plan Assessment: Acute exacerbation of moderate persistent chronic bronchial asthma History of irritable bowel syndrome Lifelong nonsmoker Plan The patient was seen and evaluated by Dr. Webster She is cleared for discharge from the pulmonary standpoint Continue Symbicort and albuterol Complete prednisone taper starting at 40 mg daily for 4 days I, the cosigning physician, performed a history & physical examination of the patient. Lungs sounds with bilateral end expiratory wheeze. Maintaining good O2 saturations in the 90s on room air. I discussed the assessment and plan of care with my nurse practitioner, Karina Parker. I attest to the above note as dictated by her.
[2019-07-08 11:26] LABS: Glucose,Whole Blood 137 mg/dL (75-99)
[2019-07-08 11:47] VITALS: BP 128/67; RESP 17; TEMP 97.9
[2019-07-08 13:03] VITALS: PULSE 82
--- NOTE | 2019-07-08 13:51 | P.DS ---
Providers Date of admission: 07/07/19 13:23 Attending physician: Ana Viveros Consults: 07/05/19 17:00 Consult Physician Routine Consulting Provider: Antonio Cochran Consult Reason/Comments: asthma exacerbation, dyspnea Do you want consulting provider notified?: Yes, Notify in am Primary care physician: Ana Felice [facility] Course: Diagnoses on discharge: 1. Acute asthma exacerbation, patient was started on IV steroids inhaled bronchodilators, and inhaled steroids she is improving gradually 2. Underlying history of gastroesophageal reflux disease maintained on Protonix continue 3. Underlying history of hyperlipidemia maintained on Pravachol continue 4. Underlying history of degenerative disc disease with chronic back pain maintained on [place] for pain management 5. Anxiety disorder maintained on Xanax as needed 6. Irritable bowel disease maintained on Bentyl Hospital Course: Sara Sam is a 58-year-old female who presented to [facility] emergency room with a chief complaint of worsening shortness of breath and cough for the last 7 days, she was treated as outpatient with oral antibiotics and oral steroids but her condition continued to worsen, she was evaluated in the emergency room she was started on IV steroids and inhaled bronchodilators and was admitted to medical floor. She has known history of asthma, she was seen in the past by Dr. Garces, consultation was initiated in the emergency room. 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 Patient was seen and examined on the medical floor she is alert and oriented 3 in no apparent distress she is complaining of shortness of breath with any activity and continue was cough otherwise she denies any complaints there is no fever or chills no headache or dizziness no chest pain no nausea or vomiting no abdominal pain no diarrhea no burning was urination no frequency or urgency and no hematuria On 07/07/2019 patient was seen and examined on the medical floor she is alert and oriented 3 in no apparent distress there is no fever or chills no headache or dizziness no chest pain she is still having shortness of breath and wheezing with any activity she is still complaining of cough there is no nausea or vomiting no abdominal pain no diarrhea and no urinary symptoms On 07/08/2019 patient was seen and examined on the medical floor she is alert and oriented 3 in no apparent distress, she is still complaining of occasional cough, her shortness of breath improved significantly, otherwise she denies any complaints there is no fever or chills no headache or dizziness no chest pain no nausea or vomiting no abdominal pain no diarrhea no burning was urination no frequency or urgency and no hematuria. Patient was evaluated by pulmonary and was cleared for discharge today, she was given a prescription for prednisone 40 mg with tapering down dose, she was also given a prescription for Symbicort inhaler she will be followed in our office within one week for further treatment. Patient Condition at Discharge: Stable Plan - Discharge Summary Discharge Rx Participant: Yes New Discharge Prescriptions: New Dicyclomine [Bentyl] 40 mg PO HS tab predniSONE 10 mg PO DIRECTED 12 Days #30 tab Budesonide-Formot 160-4.5 Mcg [Symbicort 160-4.5 Mcg Inhaler] 2 puff INHALATION RT-BID puff Continue Montelukast [Singulair] 10 mg PO HS ALPRAZolam [Xanax] 0.25 mg PO HS PRN PRN Reason: Anxiety HYDROcodone/APAP 10-325MG [[place] 10-325] 1 tab PO TID PRN PRN Reason: Pain Triamcinolone 0.1% Ointment [Kenalog 0.1% Ointment] 1 applic TOPICAL BID Albuterol Sulfate [Ventolin HFA] 2 puff INHALATION RT-Q6H PRN PRN Reason: Shortness Of Breath Famotidine 40 mg PO HS Pravastatin Sodium [Pravachol] 40 mg PO HS Pantoprazole [Protonix] 80 mg PO HS Discontinued Dicyclomine [Bentyl] 80 mg PO HS Discharge Medication List ALPRAZolam [Xanax] 0.25 mg PO HS PRN 04/14/16 [History] HYDROcodone/APAP 10-325MG [[place] 10-325] 1 tab PO TID PRN 04/14/16 [History] Montelukast [Singulair] 10 mg PO HS 04/14/16 [History] Albuterol Sulfate [Ventolin HFA] 2 puff INHALATION RT-Q6H PRN 07/05/19 [History] Famotidine 40 mg PO HS 07/05/19 [History] Pantoprazole [Protonix] 80 mg PO HS 07/05/19 [History] Pravastatin Sodium [Pravachol] 40 mg PO HS 07/05/19 [History] Triamcinolone 0.1% Ointment [Kenalog 0.1% Ointment] 1 applic TOPICAL BID 07/05/19 [History] Budesonide-Formot 160-4.5 Mcg [Symbicort 160-4.5 Mcg Inhaler] 2 puff INHALATION RT-BID puff 07/08/19 [Rx] Dicyclomine [Bentyl] 40 mg PO HS tab 07/08/19 [Rx] predniSONE 10 mg PO DIRECTED 12 Days #30 tab 07/08/19 [Rx] Follow up Appointment(s)/Referral(s): Ana Viveros MD [Primary Care Provider] - 1-2 days
== END 2019-07-08 15:35 | disposition home or self-care (01) | DRG 203 ==
LOC: EC 13:52 → 5NMEDONC 16:31 → OBSVTOIN 07-07 13:23
PROVIDERS: ADMIT Internal Medicine; ATTEND Internal Medicine
DX: J45.41 Moderate persistent asthma with (acute) exacerbation (principal); E78.5 Hyperlipidemia, unspecified; Z20.828 Contact with and (suspected) exposure to other viral communicable diseases; E89.0 Postprocedural hypothyroidism; K58.0 Irritable bowel syndrome with diarrhea; K21.9 Gastro-esophageal reflux disease without esophagitis; G89.29 Other chronic pain; M54.9 Dorsalgia, unspecified; F41.9 Anxiety disorder, unspecified; Z79.899 Other long term (current) drug therapy; Z90.710 Acquired absence of both cervix and uterus; Z88.0 Allergy status to penicillin; Z88.2 Allergy status to sulfonamides
CPT/HCPCS: 36415; 71046; 80053; 83605; 83880; 84484; 85025; 85610; 85730; 87635; 93005; 94640; 96374; 99285

== ENCOUNTER 2019-10-16 16:24 | Emergency (ER) | payer MEDICAID ==
[2019-10-16 16:31] VITALS: TEMP 98.1
[2019-10-16] MEDS ORDERED: SODIUM CHLORIDE 0.9% 1,000 ML IV STA (16:36)
--- NOTE | 2019-10-16 16:36 | ED ---
Abdominal Pain HPI - General Chief Complaint: Abdominal Pain Stated Complaint: Abd pain, sent by pcp Time Seen by Provider: 10/16/19 16:35 Source: patient, RN notes reviewed, old records reviewed Mode of arrival: ambulatory Limitations: no limitations - History of Present Illness Initial Comments: This is a 64-year-old female DF for evaluation of nausea vomiting abdominal pain for 3 days mild cramping suprapubic abdominal pain mild dysuria mild nausea no vomiting no fevers no history of similar complaint. Patient has had a bladder surgery as well as a hysterectomy. Denying any fevers no travel history no family history of similar complaint MD Complaint: abdominal pain -: days(s) Location: suprapubic Radiation: suprapubic Migration to: suprapubic Severity: moderate Severity scale (1-10): 4 Quality: aching Consistency: constant Improves With: nothing Worsens With: nothing Associated Symptoms: nausea - Related Data Home Medications Medication Instructions Recorded Confirmed ALPRAZolam [Xanax] 0.25 mg PO HS PRN 04/14/16 07/05/19 HYDROcodone/APAP 10-325MG [[place] 1 tab PO TID PRN 04/14/16 07/05/19 10-325] Montelukast [Singulair] 10 mg PO HS 04/14/16 07/05/19 Albuterol Sulfate [Ventolin HFA] 2 puff INHALATION RT-Q6H PRN 07/05/19 07/05/19 Famotidine 40 mg PO HS 07/05/19 07/05/19 Pantoprazole [Protonix] 80 mg PO HS 07/05/19 07/05/19 Pravastatin Sodium [Pravachol] 40 mg PO HS 07/05/19 07/05/19 Triamcinolone 0.1% Ointment 1 applic TOPICAL BID 07/05/19 07/05/19 [Kenalog 0.1% Ointment] Previous Rx's Medication Instructions Recorded Budesonide-Formot 160-4.5 Mcg 2 puff INHALATION RT-BID puff 07/08/19 [Symbicort 160-4.5 Mcg Inhaler] Dicyclomine [Bentyl] 40 mg PO HS tab 07/08/19 predniSONE 10 mg PO DIRECTED 12 Days #30 07/08/19 tab Nitrofurantoin Monohyd/M-Cryst 100 mg PO Q12HR #20 cap 10/16/19 [Macrobid] Allergies Allergy/AdvReac Type Severity Reaction Status Date / Time Penicillins Allergy Rash/Hives Verified 10/16/19 16:31 Sulfa (Sulfonamide Allergy Rash/Hives Verified 10/16/19 16:31 Antibiotics) Review of Systems ROS Statement: Those systems with pertinent positive or pertinent negative responses have been documented in the HPI. ROS Other: All systems not noted in ROS Statement are negative. Past Medical History Past Medical History: Asthma, Thyroid Disorder Additional Past Medical History / Comment(s): FREQUENT DIARRHEA History of Any Multi-Drug Resistant Organisms: None Reported Past Surgical History: Bladder Surgery, Breast Surgery, Hysterectomy Additional Past Surgical History / Comment(s): THYROIDECTOMY Past Anesthesia/Blood Transfusion Reactions: No Reported Reaction Past Psychological History: No Psychological Hx Reported Smoking Status: Never smoker Past Alcohol Use History: None Reported Past Drug Use History: None Reported - Past Family History Mother Family Medical History: No Reported History Father Family Medical History: No Reported History General Exam Limitations: no limitations General appearance: alert, in no apparent distress, obese Head exam: Present: atraumatic, normocephalic, normal inspection Eye exam: Present: normal appearance, PERRL, EOMI. Absent: scleral icterus, conjunctival injection, periorbital swelling ENT exam: Present: normal exam, mucous membranes moist Neck exam: Present: normal inspection. Absent: tenderness, meningismus, lymphadenopathy Respiratory exam: Present: normal lung sounds bilaterally. Absent: respiratory distress, wheezes, rales, rhonchi, stridor Cardiovascular Exam: Present: regular rate, normal rhythm, normal heart sounds. Absent: systolic murmur, diastolic murmur, rubs, gallop, clicks GI/Abdominal exam: Present: soft, tenderness (Suprapubic), normal bowel sounds. Absent: distended, guarding, rebound, rigid Extremities exam: Present: normal inspection, full ROM, normal capillary refill. Absent: tenderness, pedal edema, joint swelling, calf tenderness Back exam: Present: normal inspection Neurological exam: Present: alert, oriented X3, CN II-XII intact Psychiatric exam: Present: normal affect, normal mood Skin exam: Present: warm, dry, intact, normal color. Absent: rash Course Vital Signs 10/16/19 16:29 Temperature 98.1 F Pulse Rate 70 Respiratory 20 Rate Blood Pressure 128/89 O2 Sat by Pulse 99 Oximetry - Reevaluation(s) Reevaluation #1: 10/16/19 19:08 Medical records reviewed Reevaluation #2: 10/16/19 19:08 Patient reevaluated feels well Reevaluation #3: 10/16/19 19:08 Patient informed results, questions answered, okay for discharge Medical Decision Making - Medical Decision Making 58 female DF for eval [place] pain found to have urinary tract infection CT pelvis is otherwise negative for acute disease able tolerate oral intake and can be discharged home - Lab Data Result diagrams: 10/16/19 16:40 10/16/19 16:40 Lab Results 10/16/19 10/16/19 10/16/19 Range/Units 16:40 16:40 16:40 WBC 7.9 (3.8-10.6) k/uL RBC 4.50 (3.80-5.40) m/uL Hgb 12.8 (11.4-16.0) gm/dL Hct 40.0 (34.0-46.0) % MCV 88.9 (80.0-100.0) fL MCH 28.5 (25.0-35.0) pg MCHC 32.0 (31.0-37.0) g/dL RDW 12.7 (11.5-15.5) % Plt Count 299 (150-450) k/uL Neutrophils % 62 % Lymphocytes % 27 % Monocytes % 5 % Eosinophils % 4 % Basophils % 1 % Neutrophils # 4.9 (1.3-7.7) k/uL Lymphocytes # 2.1 (1.0-4.8) k/uL Monocytes # 0.4 (0-1.0) k/uL Eosinophils # 0.3 (0-0.7) k/uL Basophils # 0.1 (0-0.2) k/uL Sodium 138 (137-145) mmol/L Potassium 4.1 (3.5-5.1) mmol/L Chloride 104 (98-107) mmol/L Carbon Dioxide 26 (22-30) mmol/L Anion Gap 8 mmol/L BUN 10 (7-17) mg/dL Creatinine 0.74 (0.52-1.04) mg/dL Est GFR (CKD-EPI)AfAm >90 (>60 ml/min/1.73 sqM) Est GFR (CKD-EPI)NonAf 89 (>60 ml/min/1.73 sqM) Glucose 100 H (74-99) mg/dL Plasma Lactic Acid Sushant 1.1 (0.7-2.0) mmol/L Calcium 9.4 (8.4-10.2) mg/dL Total Bilirubin 0.6 (0.2-1.3) mg/dL AST 24 (14-36) U/L ALT 10 (4-34) U/L Alkaline Phosphatase 81 (38-126) U/L Creatine Kinase 214 H (30-135) U/L Total Protein 7.4 (6.3-8.2) g/dL Albumin 4.5 (3.5-5.0) g/dL Amylase 77 (30-110) U/L Lipase 124 (23-300) U/L Urine Color Urine Appearance (Clear) Urine pH (5.0-8.0) Ur Specific Cummings (1.001-1.035) Urine Protein (Negative) Urine Glucose (UA) (Negative) Urine Ketones (Negative) Urine Blood (Negative) Urine Nitrite (Negative) Urine Bilirubin (Negative) Urine Urobilinogen (<2.0) mg/dL Ur Leukocyte Esterase (Negative) Urine RBC (0-5) /hpf Urine WBC (0-5) /hpf Ur Squamous Epith Cells (0-4) /hpf Urine Mucus (None) /hpf 10/16/19 Range/Units 16:44 WBC (3.8-10.6) k/uL RBC (3.80-5.40) m/uL Hgb (11.4-16.0) gm/dL Hct (34.0-46.0) % MCV (80.0-100.0) fL MCH (25.0-35.0) pg MCHC (31.0-37.0) g/dL RDW (11.5-15.5) % Plt Count (150-450) k/uL Neutrophils % % Lymphocytes % % Monocytes % % Eosinophils % % Basophils % % Neutrophils # (1.3-7.7) k/uL Lymphocytes # (1.0-4.8) k/uL Monocytes # (0-1.0) k/uL Eosinophils # (0-0.7) k/uL Basophils # (0-0.2) k/uL Sodium (137-145) mmol/L Potassium (3.5-5.1) mmol/L Chloride (98-107) mmol/L Carbon Dioxide (22-30) mmol/L Anion Gap mmol/L BUN (7-17) mg/dL Creatinine (0.52-1.04) mg/dL Est GFR (CKD-EPI)AfAm (>60 ml/min/1.73 sqM) Est GFR (CKD-EPI)NonAf (>60 ml/min/1.73 sqM) Glucose (74-99) mg/dL Plasma Lactic Acid Sushant (0.7-2.0) mmol/L Calcium (8.4-10.2) mg/dL Total Bilirubin (0.2-1.3) mg/dL AST (14-36) U/L ALT (4-34) U/L Alkaline Phosphatase (38-126) U/L Creatine Kinase (30-135) U/L Total Protein (6.3-8.2) g/dL Albumin (3.5-5.0) g/dL Amylase (30-110) U/L Lipase (23-300) U/L Urine Color Yellow Urine Appearance Clear (Clear) Urine pH 6.0 (5.0-8.0) Ur Specific [place] 1.020 (1.001-1.035) Urine Protein Negative (Negative) Urine Glucose (UA) Negative (Negative) Urine Ketones Negative (Negative) Urine Blood Negative (Negative) Urine Nitrite Negative (Negative) Urine Bilirubin Negative (Negative) Urine Urobilinogen <2.0 (<2.0) mg/dL Ur Leukocyte Esterase Large H (Negative) Urine RBC 2 (0-5) /hpf Urine WBC 46 H (0-5) /hpf Ur Squamous Epith Cells 8 H (0-4) /hpf Urine Mucus Rare H (None) /hpf - Radiology Data Radiology results: report reviewed (CT pelvis negative for acute disease), image reviewed Disposition Clinical Impression: Abdominal pain, UTI (urinary tract infection) Disposition: HOME SELF-CARE Condition: Good Instructions (If sedation given, give patient instructions): Urinary Tract Infection in Women (ED) Prescriptions: Nitrofurantoin Monohyd/M-Cryst [Macrobid] 100 mg PO Q12HR #20 cap Is patient prescribed a controlled substance at d/c from ED?: No Referrals: Ana Viveros MD [Primary Care Provider] - 1-2 days
[2019-10-16 16:54] LABS: Basophils # (A) 0.1 k/uL (0-0.2); Basophils % (A) 1 %; Eosinophils # (A) 0.3 k/uL (0-0.7); Eosinophils % (A) 4 %; HGB 12.8 gm/dL (11.4-16.0); Lymphocytes # (A) 2.1 k/uL (1.0-4.8); Lymphocytes % (A) 27 %; MCH 28.5 pg (25.0-35.0); MCV 88.9 fL (80.0-100.0); Mean Platelet Volume 7.6; Monocytes # (A) 0.4 k/uL (0-1.0); Monocytes % (A) 5 %; Neutrophils # (A) 4.9 k/uL (1.3-7.7); Neutrophils % (A) 62 %; Platelet Count 299 k/uL (150-450); RDW 12.7 % (11.5-15.5); WBC 7.9 k/uL (3.8-10.6)
[2019-10-16 17:02] LABS: ALT 10 U/L (4-34); AST 24 U/L (14-36); African American GFR (CKD) >90 (>60 ml/min/1.73 sqM); Albumin 4.5 g/dL (3.5-5.0); Alkaline Phosphatase 81 U/L (38-126); Amylase 77 U/L (30-110); Anion Gap 8 mmol/L; Blood Urea Nitrogen 10 mg/dL (7-17); Calcium 9.4 mg/dL (8.4-10.2); Carbon Dioxide 26 mmol/L (22-30); Chloride 104 mmol/L (98-107); Creatine Kinase 214 U/L (30-135); Glucose 100 mg/dL (74-99); Non-African American GFR(CKD) 89 (>60 ml/min/1.73 sqM); Potassium 4.1 mmol/L (3.5-5.1); Sodium 138 mmol/L (137-145); Total Bilirubin 0.6 mg/dL (0.2-1.3); Total Protein 7.4 g/dL (6.3-8.2)
[2019-10-16 17:14] LABS: Appearance,Urine Clear (Clear); Bilirubin,Urine Negative (Negative); Blood,Urine Negative (Negative); Color,Urine Yellow; Glucose,Urine (UA) Negative (Negative); Ketones,Urine Negative (Negative); Leukocyte Esterase,Urine Large (Negative); Mucus,Urine Rare /hpf; Nitrite,Urine Negative (Negative); Protein,Urine Negative (Negative); RBC,Urine 2 /hpf (0-5); Squamous Epithelial Cell,Urine 8 /hpf (0-4); Urobilinogen,Urine <2.0 mg/dL (<2.0); WBC,Urine 46 /hpf (0-5)
--- NOTE | 2019-10-16 17:49 | CT ---
EXAMINATION TYPE: CT abdomen pelvis w con DATE OF EXAM: 10/16/2019 COMPARISON: None HISTORY: Right sided abdominal pain. CT DLP: 1502 mGycm Automated exposure control for dose reduction was used. CONTRAST: Performed with IV Contrast, patient injected with 100ml mL of Isovue 300. Multiple axial sections were obtained from the diaphragm to the floor the pelvis with IV contrast. There is minimal subsegmental atelectasis at the lung bases. There is mild to moderate hiatal hernia. Liver shows no focal defect. Gallbladder appears normal. The bile ducts are not dilated. Spleen is i ntact. There is no evidence of pancreatic mass. There is no adrenal mass. Kidneys show satisfactory contrast opacification. There is no hydronephrosi s. Ureters are not dilated. There is no retroperitoneal adenopathy. Bladder distends smoothly. There is no inguinal hernia. There is no free fluid in the pelvis. There is no evidence of a pelvic m ass. There is no mesenteric edema. There is no ascites or free air. There is no evidence of a bowel obstru ction. Appendix appears normal. Lumbar vertebra have normal alignment. There is some ligamentum flavum thickening and facet arthropat hy in the lower lumbar spine at L4-5 with resultant spinal stenosis. There is also some mild spinal s tenosis at L5-S1. There is no compression fracture. The bony pelvis is intact. There is 1 cm bone isl and in the right iliac bone. There is 1.5 cm umbilical hernia that contains fat. IMPRESSION: Negative CT scan abdomen and pelvis. I do not see a cause for right-sided pain. Small normal-appearin g appendix. Mild subsegmental atelectasis at the lung bases.
[2019-10-16] MEDS ORDERED: KETOROLAC 15 MG/ML 1 ML VIAL IVP STA (19:11)
[2019-10-16] MEDS ORDERED: ONDANSETRON 4 MG/2 ML VIAL IVP STA (19:11)
[2019-10-16 19:39] VITALS: BP 135/84; PULSE 64; RESP 18
== END 2019-10-16 19:39 | disposition home or self-care (01) ==
LOC: EC 16:24
DX: N39.0 Urinary tract infection, site not specified (principal); J45.909 Unspecified asthma, uncomplicated; Z79.51 Long term (current) use of inhaled steroids; Z79.899 Other long term (current) drug therapy; Z88.0 Allergy status to penicillin; Z88.2 Allergy status to sulfonamides; Z90.710 Acquired absence of both cervix and uterus
CPT/HCPCS: 99284; 96365; 96361 ×2; 36415; 80053; 82150; 82550; 83605; 83690; 85025; 81001; 87086; 74177; J0696; Q9967

== ENCOUNTER → 2020-01-06 | Outpatient (CLI) | payer MEDICAID ==
--- NOTE | 2020-01-06 11:52 | BD ---
EXAMINATION TYPE: Axial Bone Density DATE OF EXAM: 01/06/2020 COMPARISON: 12/30/2015 CLINICAL HISTORY: Height: 66.7 IN Weight: 216 LBS RISK FACTORS HISTORY OF: Active: YES Postmenopausal woman: AGE 46 Take estrogen and/or progesterone medications: NOT NOW How lon YEAR MEDICATIONS: Thyroid Medications: YES Which medication: Synthroid How Lon+ YEARS Additional Medications: SYNTHROID, BOWEL MEDS, ACID REFLUX MEDS EXAM MEASUREMENTS: Bone mineral densitometry was performed using the [employer] System. Bone mineral density as measured about the Lumbar spine is: ----- L1-L4(G/cm2): 0.987 T Score Values are as follows: ----- L2: -2.1 ----- L3: -1.2 ----- L4: -2.1 ----- L1-L4: -1.6 Bone mineral density has: Decreased -2.0% since study of: 12/30/2015 Bone mineral density about the R hip (g/cm2): 0.818 Bone mineral density about the L hip (g/cm2): 0.765 T Score values are as follows: -----R Neck: -2.0 -----L Neck: -1.6 -----R Total: -1.5 -----L Total: -1.0 Bone mineral density has: Decreased -2.0% since study of: 12/30/2015 IMPRESSION: Osteopenia NOTE: T-SCORE=SD OF THE YOUNG ADULT MEAN.
--- NOTE | 2020-01-07 09:38 | MM ---
Reason for exam: screening (asymptomatic). Last mammogram was performed 2 years and 10 months ago. History: Patient is postmenopausal and has history of high-risk lesion on a previous biopsy at age 49. Family history of breast cancer in maternal cousin. Benign MG pre op needle loc RT of the right breast, September 02, 2014. High risk US biopsy breast VAD RT of the right breast, August 20, 2014. High risk right breast needle localzation of the right breast, December 31, 2009. High risk right mammotome panel of the right breast, November 27, 2009. Benign US left guided VAD of the left breast, November 27, 2009. Benign excisional biopsy of the right breast, 2002. Benign excisional biopsy of the right breast, 1988. Took hormonal contraceptives for 17 years beginning at age 16. Took estrogen for 1 year beginning at age 45. Took progesterone for 1 year beginning at age 45. Physical Findings: A clinical breast exam by your physician is recommended on an annual basis and results should be correlated with mammographic findings. MG 3D Screening Mammo W/Cad Bilateral CC and MLO view(s) were taken. Prior study comparison: March 21, 2017, bilateral MG 3d screening mammo w/cad. December 30, 2015, bilateral MG 3d screening mammo w/cad. The breast tissue is heterogeneously dense. This may lower the sensitivity of mammography. No significant changes when compared with prior studies. ASSESSMENT: Benign, BI-RAD 2 RECOMMENDATION: Routine screening mammogram of both breasts in 1 year.
== END | disposition home or self-care (01) ==
LOC: RADMAMWWP 09:44
PROVIDERS: ATTEND Internal Medicine
DX: Z12.31 Encounter for screening mammogram for malignant neoplasm of breast (principal); M85.80 Other specified disorders of bone density and structure, unspecified site
CPT/HCPCS: 77063; 77067; 77080

== ENCOUNTER → 2020-04-17 | Outpatient (CLI) | payer MEDICAID ==
--- NOTE | 2020-04-18 05:03 | MR ---
EXAMINATION TYPE: MR lumbar spine wo con DATE OF EXAM: 04/17/2020 COMPARISON: 08/08/2014 HISTORY: Low back pain that radiates to right leg. Multiplanar multiecho imaging of the lumbar spine was performed without contrast. There is normal alignment of the vertebra. Disc spaces are fairly normal. There is hypertrophic mild facet arthropathy and ligamentum flavum thickening at L4-5 with resultant lateral recess stenosis and mild spinal stenosis. The lumbar nerve roots appear fairly normal. The lumbar neural foramina are fa irly well-maintained. There is no paraspinal mass. There is no compression fracture. I see no bony de structive process. IMPRESSION: There is mild lateral recess stenosis at L4-5 that is increased compared to old exam. No fracture. No evidence of any significant lumbar disc herniation.
== END | disposition home or self-care (01) ==
LOC: RADMRIMAIN 16:16
PROVIDERS: ATTEND Internal Medicine
DX: M48.061 Spinal stenosis, lumbar region without neurogenic claudication (principal)
CPT/HCPCS: 72148

== ENCOUNTER → 2020-08-12 | Outpatient (CLI) | payer MEDICAID ==
[2020-08-12 10:16] VITALS: BP 123/75; PULSE 70; RESP 18; TEMP 98.4
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
== END ==
LOC: PNWHC3 10:02
PROVIDERS: ATTEND Specialist
DX: M47.816 Spondylosis without myelopathy or radiculopathy, lumbar region (principal); J45.909 Unspecified asthma, uncomplicated; K21.9 Gastro-esophageal reflux disease without esophagitis; Z79.899 Other long term (current) drug therapy; Z79.51 Long term (current) use of inhaled steroids; Z88.0 Allergy status to penicillin; Z88.2 Allergy status to sulfonamides
CPT/HCPCS: 99211

== ENCOUNTER 2020-08-27 07:35 | Day surgery (SDC) | payer MEDICAID ==
[2020-08-26 09:06] VITALS: BMI 34.7
[~2020-08-27 07:35] MED LIST: LACTATED RINGERS 1,000 ML IV SCH
[2020-08-27] MEDS ORDERED: LIDOCAINE 1% (10MG/ML) FOR IV START INTRADERMA ONE (08:08)
[2020-08-27 08:16] VITALS: RESP 16; TEMP 98.4
[2020-08-27] MEDS ORDERED: fentaNYL (PF) 50 MCG/ML 2 ML AMP ONE (08:27)
[2020-08-27] MEDS ORDERED: methylPREDNISolone ACETATE 40 MG/ML 1 ML VIAL ONE (08:27)
[2020-08-27] MEDS ORDERED: MIDAZOLAM 2 MG/2 ML VIAL ONE (08:27)
[2020-08-27] MEDS ORDERED: ROPIVACAINE 5MG/ML 20ML VIAL ONE (08:27)
--- NOTE | 2020-08-27 08:46 | P.PCN ---
Date of Procedure: 08/27/20 Procedure(s) Performed: PREOPERATIVE DIAGNOSIS : 1- Lumbar spondylosis with Facet Arthropathy without myelopathy . POSTOPERATIVE DIAGNOSIS: 1- Lumbar spondylosis with Facet Arthropathy without myelopathy . PROCEDURE: Diagnostic bilateral L3 , L4 , and L5 medial branch block under fluoroscopy guidance(fluoroscopy images available in the radiology Department ) ( To target the facet joint between bilateral L4-5 , and L5-S1 ) ANESTHESIA:, moderate sedation with intravenous Versed 2 mg and Fentanyl 50 mcg. EBL: Minimal COMPLICATION: None PROCEDURE INDICATION: Chronic low back pain secondary to Facet arthropathy unresponsive to conservative treatment. PROCEDURE DESCRIPTION: the patient was seen and identified in the preop holding area , risks and benefits and possible complications of the procedure and alternative were discussed with the patient, and the patient agreed to proceed with the procedure and signed the consent and vital signs monitored during the procedure and fluoroscopy was used to maximize the benefit and accuracy of the needle placement, and sedation was given to decrease patient anxiety, patient was taken to the procedure room and placed in prone position vital signs monitored in the back prepped with chlorhexidine X3 then under strict sterile technique using a right oblique fluoroscopy ,the junction of the transverse process and the superior articulating process of the right L3 , L4 , and L5 vertebra which corresponding to the fluoroscopy image of the eye of the Erick dog on the block side for the medial branches and subsequently , after local infiltration of skin and subcu tissuies with Ropivacaine 0.5 % , one mL at each level ,then 22-gauge 5 inches long Quincke-type needles , 3 needle was used , each one of them placed at the junction of the base of the transverse process and the superior articular process at the appropriate level, and the needle was advanced until the periosteum contacted, needle placement confirmed with AP oblique and lateral view and after appropriate needle placement confirmed, and after negative aspiration for heme and CSF and there was no paresthesia 1-1/2 mL of Ropivacaine 0.5% mixed with 20 mg Depo-Medrol , then half mL injected at each level after negative aspiration the needle subsequently removed and the same procedure repeated for the left side at left side at L3 , L4 and L5 levels. At the end of the procedure and the needles removed and a bandage applied after the skin was cleaned the cleaning solution patient taken to recovery room in stable condition and monitors in the recovery room for 20-30 minutes and discharged home in stable condition after discharge criteria met and patient will follow up with the pain clinic in 2-4 weeks
[2020-08-27 08:54] VITALS: PULSE 64
[2020-08-27 09:21] VITALS: BP 119/77
[2020-08-27] MEDS ORDERED: IV FLUID CONTINUATION 1,000 ML IV ONE (09:28)
--- NOTE | 2020-08-27 09:40 | FL ---
EXAMINATION TYPE: FL guided pain mgmt statistic DATE OF EXAM: 08/27/2020 HISTORY: Fluoroscopy time 11 seconds of fluoroscopy provided. IMPRESSION: 1. Fluoroscopy time.
== END 2020-08-27 09:31 | disposition home or self-care (01) ==
LOC: ORPAIN 07:35
PROVIDERS: ATTEND Specialist
DX: G89.29 Other chronic pain (principal); M47.816 Spondylosis without myelopathy or radiculopathy, lumbar region; Z88.0 Allergy status to penicillin; Z88.2 Allergy status to sulfonamides; Z90.710 Acquired absence of both cervix and uterus
CPT/HCPCS: 64493; 64494; J2250; J1030; J3010; J2795; 99152

== ENCOUNTER 2020-09-24 07:58 | Day surgery (SDC) | payer MEDICAID ==
[2020-09-23 10:24] VITALS: BMI 34.1
[2020-09-24 08:43] VITALS: TEMP 97.6
[2020-09-24] MEDS ORDERED: TRIAMCINOLONE ACETONIDE 40 MG/ML 1 ML VIAL ONE (09:11)
[2020-09-24] MEDS ORDERED: ROPIVACAINE 5MG/ML 20ML VIAL ONE (09:11)
[2020-09-24] MEDS ORDERED: MIDAZOLAM 2 MG/2 ML VIAL ONE (09:11)
[2020-09-24] MEDS ORDERED: fentaNYL (PF) 50 MCG/ML 2 ML AMP ONE (09:11)
--- NOTE | 2020-09-24 09:28 | P.PCN ---
Date of Procedure: 09/24/20 Surgeon: Александр Washington Pathology: none sent Condition: stable Disposition: PACU Description of Procedure: PREOPERATIVE DIAGNOSIS : 1- Lumbar spondylosis with Facet Arthropathy without myelopathy . 2- Lumber degenerative disc disease POSTOPERATIVE DIAGNOSIS: 1- Lumbar spondylosis with Facet Arthropathy without myelopathy . 2- Lumber degenerative disc disease PROCEDURE: Diagnostic bilateral L4 -5 , and L5-S1 medial branch block under fluoroscopy Physician: Александр Washington MD ANESTHESIA: Local with 1% lidocaine; IV moderate conscious sedation with Versed 1 mg and fentanyl 50 mcg. . EBL: Negligible COMPLICATION: None. PROCEDURE INDICATION: Chronic low back pain secondary to Facet arthropathy unresponsive to conservative treatment. PROCEDURE DESCRIPTION: the patient was seen and identified in the preop holding area , risks and benefits and possible complications of the procedure and alternatives were discussed with the patient, and the patient agreed to proceed with the procedure and signed the consent. IV was started and vital signs monitored during the procedure and fluoroscopy was used to maximize the benefit and accuracy of the needle placement, sedation was given to decrease patient anxiety, patient was taken to the procedure room and placed in prone position vital signs monitored. The patient was brought into the procedure room and placed in prone position. Skin was prepped with Chloraprep and draped in a sterile manner. Lidocaine 1% was used to numb the skin up at the target points that were chosen as follows: at the L5-S1 level which corresponds to the dorsal ramus of L5 the target points were at the superior medial aspect of the sacral ala on each side of the spine on the AP view of fluoroscopy, and for the L3 and L4 medial branches the target points were the connection between the transverse process and the superior to go process of L4 and L5 respectively on the oblique views of fluoroscopy. I used 22-gauge 3-1/2 inch [place]ke spinal needles for this procedure and after contacting bone at the target points mentioned above I injected 1 mL of a mixture of Kenalog 40 mg +5 MLS of Ropivacaine 0.5% PF . Patient tolerated procedure well. At the end of the procedure the needles removed and a bandage applied after the skin was cleaned the cleaning solution. patient was then taken to the recovery room in stable condition and monitored in the recovery room for 20-30 minutes and discharged home in stable condition after discharge criteria met . A copy of the needle placement picture was saved to the C-arm machine.
[2020-09-24] MEDS ORDERED: IV FLUID CONTINUATION 1,000 ML IV ONE (09:37)
[2020-09-24 09:39] VITALS: RESP 18
--- NOTE | 2020-09-24 09:41 | FL ---
EXAMINATION TYPE: FL guidance operating room DATE OF EXAM: 09/24/2020 HISTORY: Fluoroscopy time 4 seconds of fluoroscopy provided. IMPRESSION: 1. Fluoroscopy time.
[2020-09-24 09:54] VITALS: BP 128/86; PULSE 60
== END 2020-09-24 10:07 | disposition home or self-care (01) ==
LOC: ORPAIN 07:58
PROVIDERS: ATTEND Anesthesiology
DX: G89.29 Other chronic pain (principal); M47.816 Spondylosis without myelopathy or radiculopathy, lumbar region; Z88.0 Allergy status to penicillin; Z88.2 Allergy status to sulfonamides; Z78.0 Asymptomatic menopausal state
CPT/HCPCS: 64493; 64494; J2250; J3301; J3010; J2795; 99152

== ENCOUNTER → 2020-11-12 | Outpatient (CLI) | payer MEDICAID ==
[2020-11-12 13:52] LABS: Basophils % (A) 0 %; Eosinophils # (A) 0.2 k/uL (0-0.7); Eosinophils % (A) 2 %; HCT 37.8 % (34.0-46.0); HGB 12.8 gm/dL (11.4-16.0); Lymphocytes # (A) 2.6 k/uL (1.0-4.8); Lymphocytes % (A) 34 %; MCHC 33.9 g/dL (31.0-37.0); MCV 91.6 fL (80.0-100.0); Mean Platelet Volume 7.4; Monocytes # (A) 0.4 k/uL (0-1.0); Monocytes % (A) 5 %; Neutrophils # (A) 4.3 k/uL (1.3-7.7); Neutrophils % (A) 57 %; Platelet Count 282 k/uL (150-450); RBC 4.13 m/uL (3.80-5.40); RDW 12.7 % (11.5-15.5); WBC 7.6 k/uL (3.8-10.6)
[2020-11-12 14:08] LABS: ALT 8 U/L (4-34); AST 22 U/L (14-36); African American GFR (CKD) 80 (>60 ml/min/1.73 sqM); Albumin/Globulin Ratio 1.3; Alkaline Phosphatase 89 U/L (38-126); Anion Gap 7 mmol/L; Blood Urea Nitrogen 14 mg/dL (7-17); Calcium 9.4 mg/dL (8.4-10.2); Carbon Dioxide 29 mmol/L (22-30); Chloride 103 mmol/L (98-107); Globulin 3.1 g/dL; Glucose 92 mg/dL (74-99); Non-African American GFR(CKD) 70 (>60 ml/min/1.73 sqM); Potassium 4.1 mmol/L (3.5-5.1); Sodium 139 mmol/L (137-145); Total Bilirubin 0.8 mg/dL (0.2-1.3); Total Protein 7.1 g/dL (6.3-8.2)
[2020-11-13 05:06] LABS: Chol/HDL Ratio 4.47; Cholesterol 228 mg/dL (0-200); LDL Cholesterol,Calculated 159.6 mg/dL (0.0-131.0)
== END | disposition home or self-care (01) ==
LOC: LABWHC1 13:24
PROVIDERS: ATTEND Internal Medicine
DX: I10 Essential (primary) hypertension (principal); E78.2 Mixed hyperlipidemia; E55.9 Vitamin D deficiency, unspecified; E03.9 Hypothyroidism, unspecified
CPT/HCPCS: 36415; 80053; 80061; 82306; 84443; 85025

== ENCOUNTER → 2020-11-30 | Outpatient (CLI) | payer MEDICAID ==
[2020-11-30 07:56] VITALS: BP 135/77; PULSE 63; RESP 18; TEMP 98.5
--- NOTE | 2020-11-30 07:58 | P.PAINPG ---
Subjective Progress Note Date: 11/30/20 Principal diagnosis: Lumbar spondylosis without myelopathy Mrs. Sam is a 58-year-old pleasant female came to [facility] pain [facility] for follow-up visit, after the intervention procedure. Patient had more than 80% pain relief both times after bilateral lumbar medial branch block at L4-L5, and L5-S1 levels. After the procedure patient was very active at home doing exercises, stretching. As per patient she can able to sleep better, able to function better, less pain while working. Today patient rated her pain is 5 out of 10 in severity. She describes her pain is aching, throbbing type of pain. She denied pain radiating to her lower extremities. Ac tivities sometimes making her pain worse. Interventional procedures, and [place] helping as needed for pain. Patient denied any side effects of the medications. Patient denied any red flag symptoms including bowel or bladder problems related to her back pain. Objective - Vital Signs Vital signs: Intake & Output 11/29/20 11/30/20 11/30/20 18:59 06:59 18:59 Weight 99.79 kg - Exam General: Well-developed, well-nourished, no acute distress HEENT: Normocephalic, and atraumatic Neck: Supple, no neck swelling Psychiatric: Appropriate mood, and affect TWO [employer]CH[employer]ICIAN: No focal neurological deficits Musculoskeletal: Upper extremity: Normal strength, and range of motion. Sensation grossly intact Lower extremity: Normal strength, and range of motion Lumbar spine: Paravertebral tenderness: positive Lumbar facet load test : positive Sacroiliac joint tenderness: Negative Lumbar area trigger points also positive. - Constitutional Constitutional Comment(s): 13 point review of systems negative except as mentioned in history of present illness. Assessment and Plan Assessment: Lumbar spondylosis without myelopathy Myofascial pain syndrome, and chronic pain syndrome Plan: #1 psychological risk tools were reviewed. Diagnoses, prognosis, and multiple treatment options including but not limited to physical therapy, interventional therapy, adjunct medication therapy, complementary alternative medicine options, narcotic medication, and surgical options were discussed with the patient. And all questions were answered to the patient's satisfaction. #2 treatment plan agreement : Patient was thoroughly discussed regarding the treatment options, alternatives, and importance of exercises as tolerated. Patient clearly understood. #3 Patient was counseled on importance of regular exercise. Including caitlin chi, aerobic exercises as tolerated. Which helps for chronic pain, and overall well- being. Patient also counseled regarding importance of weight control role in chronic pain, and overall other health issues. By altering diet habits, minimizing sugar intake, & processed foods helps in minimizing Inflammation. Patient counseled regarding smoking associated with chronic pain, worsening inflammation, and smoking effects on liver, and medication metabolism. And encouraged to stop smoking. #4 investigations: MAPS- reviewed , urine drug test-not done #5 diagnostic tests: None #6 consultation : Continue physical therapy # 7 interventional procedures: Bilateral lumbar L4-L5, and L5-S1 medial branch radiofrequency ablation. Procedure, complications, alternatives discussed with the patient. #8 medications #1 none from the pain clinic #9 disposition: scheduled to follow up with pain clinic in 8 weeks duration. PQRS Measure Charge Sheet Measure #130: Documentation of Current Meds in Medical Chart: Patient's medications documented in chart Measure #226: Tobacco Use: Screen & Cessation Intervention: Pt not a tobacco user Measure #111: Pneumonia Vaccination: Pneumococcal vaccine NOT administered or previously given Measure #47: Advance Care Plan: Advance care planning discussed & documented, pt chose/unable to give Measure #412: Opioid Treatment Agreement: No documentation of signed opioid treatment agreement Measure #408: Opioid Therapy Follow-up Evaluation: Patient had NO f/u eval minimum every 3 months during opioid therapy Measure #317: Preventitive Care & Scrn High Bld Press & F/U: Normal blood pressure, f/u not required Measure #128: Body Mass Index (BMI) Screening & Follow-up: BMI documented within normal parameters Measure #131: Pain Assessment & Follow-up: Pain positive & plan documented Measure #431: Unhealthy Alcohol Use Preventative Care & Scrn: Patient not identified as an unhealthy alcohol user PQRS Narrative: Smoking Status Never smoker Hx Alcohol Use (MH) No Home Medications: Ambulatory Orders ALPRAZolam [Xanax] 0.25 mg PO HS PRN 04/14/16 HYDROcodone/APAP 10-325MG [[place] 10-325] 1 tab PO TID PRN 04/14/16 Montelukast [Singulair] 10 mg PO HS 04/14/16 Albuterol Sulfate [Ventolin HFA] 2 puff INHALATION RT-Q6H PRN 07/05/19 Famotidine 40 mg PO HS 07/05/19 Pantoprazole [Protonix] 40 mg PO HS 07/05/19 Pravastatin Sodium [Pravachol] 40 mg PO HS 07/05/19 Triamcinolone 0.1% Ointment [Kenalog 0.1% Ointment] 1 applic TOPICAL BID PRN 07/05/19 Budesonide-Formot 160-4.5 Mcg [Symbicort 160-4.5 Mcg Inhaler] 2 puff INHALATION RT-BID puff 07/08/19 Dicyclomine [Bentyl] 40 mg PO HS tab 07/08/19 Controlled Substance Measures - Controlled Substance Measures Is patient prescribed a controlled substance at discharge?: No
== END | disposition home or self-care (01) ==
LOC: PNWHC3 07:34
DX: M47.816 Spondylosis without myelopathy or radiculopathy, lumbar region (principal)
CPT/HCPCS: 99211

== ENCOUNTER 2021-01-08 10:21 | Day surgery (SDC) | payer MEDICAID ==
[2021-01-08 10:45] VITALS: TEMP 97.5
[2021-01-08] MEDS ORDERED: LACTATED RINGERS 1,000 ML IV ONE (10:45)
[2021-01-08] MEDS ORDERED: LACTATED RINGERS 1,000 ML IV SCH (10:54)
[2021-01-08] MEDS ORDERED: MIDAZOLAM 2 MG/2 ML VIAL ONE (11:07)
[2021-01-08] MEDS ORDERED: ROPIVACAINE 5MG/ML 20ML VIAL ONE (11:07)
[2021-01-08] MEDS ORDERED: fentaNYL (PF) 50 MCG/ML 2 ML AMP ONE (11:07)
[2021-01-08] MEDS ORDERED: methylPREDNISolone ACETATE 40 MG/ML 1 ML VIAL ONE (11:07)
--- NOTE | 2021-01-08 11:41 | P.PCN ---
Date of Procedure: 01/08/21 Procedure(s) Performed: PREOPERATIVE DIAGNOSIS: 1-Lumbar Spondylosis with Facet Arthropathy without myelopathy. POSTOPERATIVE DIAGNOSIS: 1- Lumbar Spondylosis with Facet Arthropathy without myelopathy. PROCEDURES : Bilateral Radiofrequency thermocoagulation, L3 , L4 , and L5 medial branch, with fluoroscopic guidance (fluoroscopy images available in the radiology department) ( to denervate the facet joint at Bilateral L4-5 ,and L5-S1 levels ). ANESTHESIA: Monitored anesthesia care by anesthesia department . EBL: Minimal PROCEDURE INDICATION: The patient with low back pain secondary to lumbar facet arthropathy who had more than 50% relief of her pain with previous diagnostic lumbar medial branch block with bupivacaine. PROCEDURE DESCRIPTION / TECHNIQUE: The patient was seen and identified in the preoperative area. Risks, benefits, complications, including but not limited to risk of infection ,bleeding , allergic reactions to the medications and no complete pain releife , and alternatives were discussed with the patient, the patient agreed to proceed with the procedure and signed the consent. IV was started. Vital signs remained stable throughout the procedure. Patient was taken to the OR and time out was completed. The patient was placed in the prone position on the procedure table. The lumber area was prepped and draped in the usual sterile fashion. . Vital signs were closely monitored during the procedure .IV sedation was used during the procedure to decrease patients anxiety. Using AP and then oblique fluoroscopy, the ``eye of the Erick dog corresponding to the connection between the superior and transverse articular processes of right L3, L4, and L5 were identified, marked, and localized with 1% lidocaine. Subsequently, a 18 -qd radiofrequency cannula with a 10- mm active tip was advanced guided by fluoroscopy to each of the``eyes of the Erick dog at right L3, L4, and L5. Each site then underwent sensory testing at 50 Hz and 0 to 1 volt and motor testing at 2.5 Hz and 0 to 3 volt with local stimulation, but no radicular symptoms down the legs. Thereafter each sites underwent radiofrequency thermocoagulation at 80 degrees celsius for 90 seconds after injecting 0.5 ml of PF Ropivacaine 1ml, then after the thermocoagulation done , 1 ml of the block solution containing Depo-Medrol 20 mg and 3 ml of Ropivacaine 0.5% was injected at the right L3 , L4 , and L5 , levels after negative aspiration of CSF and blood and with no paresthesias. Cannulas were retracted while injecting lidocaine 1% until the needle is out. The same procedure was repeated at the level of Left L3, L4, and L5 levels. At the end of the procedure, the skin was cleansed and bandages were applied. COMPLICATIONS: No acute complications. DISPOSITION / PLANS: The patient was placed in a supine position and trans ferred to the recovery area in a stable condition for observation and was discharged from the recovery room after meeting discharge criteria. Home discharge instructions given to the patient by the staff. The patient was reexamined prior to discharge. The patient will schedule a follow up in the clinic in 2-4 weeks.
[2021-01-08] MEDS ORDERED: IV FLUID CONTINUATION 1,000 ML IV ONE (11:47)
--- NOTE | 2021-01-08 11:48 | FL ---
EXAMINATION TYPE: FL guided pain mgmt statistic DATE OF EXAM: 01/08/2021 HISTORY: Fluoroscopy time 50 seconds of fluoroscopy provided. IMPRESSION: 1. Fluoroscopy time.
[2021-01-08 11:49] VITALS: PULSE 68
[2021-01-08 12:06] VITALS: BP 119/78; RESP 15
== END 2021-01-08 12:28 | disposition home or self-care (01) ==
LOC: ORPAIN 10:21
PROVIDERS: ATTEND Specialist
DX: M47.816 Spondylosis without myelopathy or radiculopathy, lumbar region (principal); E78.5 Hyperlipidemia, unspecified; J45.909 Unspecified asthma, uncomplicated; K21.9 Gastro-esophageal reflux disease without esophagitis; Z79.891 Long term (current) use of opiate analgesic; Z79.51 Long term (current) use of inhaled steroids; Z79.899 Other long term (current) drug therapy; Z88.0 Allergy status to penicillin; Z88.2 Allergy status to sulfonamides
CPT/HCPCS: 64635; 64636; J2250; J1030; J3010; J2795

== ENCOUNTER → 2021-01-25 | Outpatient (CLI) | payer MEDICAID ==
[2021-01-25 11:19] VITALS: BP 120/73; PULSE 61; RESP 18; TEMP 97
--- NOTE | 2021-01-26 13:34 | P.PN ---
Subjective Progress Note Date: 01/25/21 This is Follow up visit for this 60 years old female with a chronic history of severe low back pain, diagnosed with lumbar spondylosis and lumbar facet arthropathy, recently we have done RFA of the medial branch lumbar area patient reports her low back pain improved significantly currently she is complaining of pain at different location, patient reported that the intensity of the pain, increases with any activity, interferes with the quality of life, she denies any motor or sensory deficit, he denies any fever or night sweats, and she tried different kind of pain medication, he tried NSAIDs without any significant benefit , and she is currently on [place] 10/325 when necessary, and she continued to have pain she tried physical therapy without significant benefit, Physical Examinations : -Constitutiona : Cooperative , not in acute distress . -HEENT : nech : supple , no Lymphadenopathy , normal thyroid size . : eyes : no ptosis , no icterus, no photophobia . - neurologic : Cranial nerve II to XII intact , no focal neurological deffecit . -psychatric : alert , oriented X 3 , appropriate affect , intact judgment and insight . -Lymphatic : no Lymphadenopathy . - musculoskeltal : Lumber and Thoracic spine moter stegnth lower extremities ,thigh and legs 5/5 Right side , 5/5 Left side deep tendon reflexes : normal Knee Jerk , normal ankle Jerk lumber facet Loading Test =positive Right , positive Left Thoracic facet loading test positive bilaterally Range of motion of the lumbar spine Flexion 60, extension 10 strait leg raising test = negative bilaterally Fabere test= positive Right , and positive LT . mild tenderness over the Sacroiliac joint on the Right , and Left sides Multiple trigger point identified in the upper lumbar paravertebral area and multiple trigger point identified in the mid and Lower thoracic paravertebral muscles Results Comments: MRI lumbar spine= lumbar facet arthropathy Assessment and plan= 1-lumbar spondylosis with lumbar facet arthropathy without myelopathy. Low back pain improved after RFA medial branch block lumbar area at L3, L4, L5 Bilat. 2-myofascial pain syndrome thoracic and lumbar area. 3-thoracic spondylosis with thoracic facet arthropathy. she could benefit from trigger point injections mid and lower thoracic paravertebral muscles and upper lumbar area If patient continues to have pain after a trigger point injection then it will be warranted to order MRI of the thoracic spine to evaluate PQRS Measure Charge Sheet Measure #130: Documentation of Current Meds in Medical Chart: Patient's medications documented in chart Measure #226: Tobacco Use: Screen & Cessation Intervention: Pt not a tobacco user Measure #111: Pneumonia Vaccination: Pneumococcal vaccine NOT administered or previously given Measure #47: Advance Care Plan: Advance care planning discussed & documented, pt chose/unable to give Measure #412: Opioid Treatment Agreement: No documentation of signed opioid treatment agreement Measure #408: Opioid Therapy Follow-up Evaluation: Patient had NO f/u eval minimum every 3 months during opioid therapy Measure #317: Preventitive Care & Scrn High Bld Press & F/U: Normal blood pressure, f/u not required Measure #128: Body Mass Index (BMI) Screening & Follow-up: BMI documented ABOVE normal parameters - f/u documented Measure #131: Pain Assessment & Follow-up: Pain positive & plan documented, Fo llow-up scheduled Measure #431: Unhealthy Alcohol Use Preventative Care & Scrn: Patient not identified as an unhealthy alcohol user PQRS Narrative: Objective - Vital Signs Vital signs: Vital Signs Temp 97.0 F L 01/25/21 11:15 Pulse 61 01/25/21 11:15 Resp 18 01/25/21 11:15 BP 120/73 01/25/21 11:15 Pulse Ox 98 01/25/21 11:15 Intake & Output 01/25/21 01/26/21 01/26/21 18:59 06:59 18:59 Weight 55.792 kg
== END | disposition home or self-care (01) ==
LOC: PNWHC3 11:05
PROVIDERS: ATTEND Specialist
DX: M47.896 Other spondylosis, lumbar region (principal); M47.894 Other spondylosis, thoracic region; M46.96 Unspecified inflammatory spondylopathy, lumbar region; M46.94 Unspecified inflammatory spondylopathy, thoracic region
CPT/HCPCS: 99211

== ENCOUNTER 2021-03-23 11:22 | Day surgery (SDC) | payer MEDICAID ==
[2021-03-23 11:59] VITALS: TEMP 98.8
[2021-03-23] MEDS: LACTATED RINGERS 1,000 ML IV SCH ×2 (12:11→12:27)
[2021-03-23] MEDS ORDERED: LIDOCAINE 1% (10MG/ML) FOR IV START INTRADERMA ONE (12:11)
[2021-03-23] MEDS ORDERED: methylPREDNISolone ACETATE 40 MG/ML 1 ML VIAL ONE (12:28)
[2021-03-23] MEDS ORDERED: MIDAZOLAM 2 MG/2 ML VIAL ONE (12:28)
[2021-03-23] MEDS ORDERED: ROPIVACAINE 5MG/ML 20ML VIAL ONE (12:28)
[2021-03-23] MEDS ORDERED: fentaNYL (PF) 50 MCG/ML 2 ML AMP ONE (12:28)
[2021-03-23] MEDS ORDERED: IV FLUID CONTINUATION 800 ML IV ONE (12:46)
--- NOTE | 2021-03-23 12:46 | P.PCN ---
Date of Procedure: 03/23/21 Procedure(s) Performed: Procedure= trigger point injection upper Lumbar and lower and mid thoracic area total of 12 trigger point injected, 7 on the right side thoracic paravertebral muscles and 5 on the left side thoracic paravertebral muscles Preoperative diagnosis= 1- myofascial pain syndrome Lumbar thoracic area 2- Lumbar spondylosis with Facet arthropathy 3-Thoracic spondylosis with facet arthropathy Postoperative diagnosis=Same as preop Diagnosis . Complication = none Condition= stable Anesthesia=moderate sedations with versed 1 mg and Fentanyle 50 mcg . Indication for the procedure= patient complaining of mid back pain , examination was positive for multiple trigger point identified in the thoracic area. Description of the procedure= procedure risk and benefits discussed with the patient, including but not limited, risk of infection and bleeding, and ALLERGIC reaction to the medication and not complete pain relief and patient agreed with the preceding patient taken to the operating room, placed in prone position or standard monitors applied to the patient then after back prepped with chlorhexidine 3 times , total of 7 trigger point identified in the right sidelumbar and thoracic para spinal muscles, and 5 on the left side upper Lumbar and lower thoracic paraspinal muscles ,each one of them ,injected with 1.5 mL of the mixture of ropivacaine 0.5% 18 ML and 40 mg of Depo-Medrol mixed together and 2 ML of the mixture injected at each trigger point after negative aspiration, injection done using 25-gauge needle, and there was no paresthesia during the injection, patient will follow up in the pain clinic in a few weeks, and if she continued to have pain, if she has no benefit from the injection done today,we will order MRI of the thoracic spine, and we will consider doing diagnostic medial branch blocks thoracic area
[2021-03-23 13:19] VITALS: BP 120/75; PULSE 61; RESP 20
== END 2021-03-23 13:22 | disposition home or self-care (01) ==
LOC: ORPAIN 11:22
PROVIDERS: ATTEND Specialist
DX: M48.36 Traumatic spondylopathy, lumbar region (principal); M47.813 Spondylosis without myelopathy or radiculopathy, cervicothoracic region; M79.18 Myalgia, other site
CPT/HCPCS: 20553; J2250; J1030; J3010; J2795; 99152

== ENCOUNTER 2021-05-18 10:06 | Day surgery (SDC) | payer MEDICAID ==
[2021-05-17 09:14] VITALS: BMI 31.3
[~2021-05-18 10:06] MED LIST changes: +LIDOCAINE 1% (10MG/ML) FOR IV START INTRADERMA PRN
[2021-05-18 10:27] VITALS: TEMP 97.7
[2021-05-18] MEDS ORDERED: methylPREDNISolone ACETATE 40 MG/ML 1 ML VIAL ONE (10:37)
[2021-05-18] MEDS ORDERED: MIDAZOLAM 2 MG/2 ML VIAL ONE (10:37)
[2021-05-18] MEDS ORDERED: fentaNYL (PF) 50 MCG/ML 2 ML AMP ONE (10:37)
[2021-05-18] MEDS ORDERED: ROPIVACAINE 5MG/ML 20ML VIAL ONE (10:37)
--- NOTE | 2021-05-18 10:53 | P.PCN ---
Date of Procedure: 05/18/21 Description of Procedure: Pre and postop diagnosis: Myofascial pain syndrome Procedure: Trigger point injections X 6 Muscle group -right side lower trapezius, thoracic paravertebral , and latissimus dorsi muscle Surgeon: Sophie Cotter Anesthesia: None Complications: None Estimated blood loss: None Specimen removed: None Procedure indications: Patient had a history of myofascial pain syndrome. Patient tried conservative therapy. Came here for intervention procedure for better pain relief. Procedure description: Patient was seen and identified in the holding area risk benefits competitions alternative discussed with the patient. Patient agreed to proceed for the procedure signed the consent. Patient taken to the procedure area. Timeout was completed. A total number of 6 - trigger point area was marked with a sterile marker. After ChloraPrep used to clean the area. Critical pause was taken. Using 25-gauge 1-1/2 inch needle entered in each market site 2 mL of block solution injected at each level. The block solution containing 12 ml of 0.25% preservative-free ropivacaine with Depo-Medrol 40 MG. Needle removed intact skin cleaned and Band-Aid applied. Patient tolerated the procedure well. Disposition: Patient discharge home after meeting the discharge criteria from the recovery. Patient scheduled to follow up with the pain clinic in 4 weeks for follow-up visit.
[2021-05-18] MEDS ORDERED: IV FLUID CONTINUATION 800 ML IV ONE ×2 (10:56)
[2021-05-18 10:58] VITALS: RESP 16
[2021-05-18] MEDS ORDERED: LACTATED RINGERS 1,000 ML IV SCH (11:00)
[2021-05-18 11:13] VITALS: BP 118/75; PULSE 64
== END 2021-05-18 11:33 | disposition home or self-care (01) ==
LOC: ORPAIN 10:06
DX: M51.36 Other intervertebral disc degeneration, lumbar region (principal); M79.18 Myalgia, other site
CPT/HCPCS: 20553; J2250; J1030; J3010; J2795; 99152

== ENCOUNTER → 2021-05-21 | Outpatient (CLI) | payer MEDICAID ==
--- NOTE | 2021-05-23 21:30 | CT ---
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 CT DLP: 435.9 mGycm. Automated Exposure Control for Dose Reduction was Utilized. TECHNIQUE: CT scan of the sinuses is performed without contrast, axial images are obtained, coronal r eformatted images are also reviewed. FINDINGS: The paranasal sinuses including the frontal, ethmoid, sphenoid, and maxillary sinuses bila terally remain well-aerated without abnormal opacification or suspicious air-fluid levels. The ostio meatal complex is patent bilaterally on the coronal images. Persistent some increased soft tissue ful lness of the right middle and inferior turbinates though less prominent than 2014 study. No bony dest ruction is seen. Visualized portion of mastoid air cells show no abnormal opacification. The globes are intact bilate rally. IMPRESSION: The paranasal sinuses remain clear and the ostiomeatal complex remains patent bilaterally .
== END | disposition home or self-care (01) ==
LOC: RADCTMAIN 09:17
PROVIDERS: ATTEND Internal Medicine
DX: J32.1 Chronic frontal sinusitis (principal)
CPT/HCPCS: 70486

== ENCOUNTER → 2021-06-07 | Outpatient (CLI) | payer MEDICAID ==
[2021-06-07 12:02] VITALS: BP 122/77; PULSE 58; RESP 18; TEMP 98.4
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
== END | disposition home or self-care (01) ==
LOC: PNWHC3 11:27
PROVIDERS: ATTEND Specialist
DX: M47.896 Other spondylosis, lumbar region (principal); M51.36 Other intervertebral disc degeneration, lumbar region
CPT/HCPCS: 99211

== ENCOUNTER 2021-07-07 09:00 | Day surgery (SDC) | payer MEDICAID ==
[2021-07-05 16:29] VITALS: BMI 31.6
[2021-07-07 09:49] VITALS: TEMP 97.2
[2021-07-07] MEDS ORDERED: LIDOCAINE 2% INJ 20 MG/ML (2 ML VIAL) ONE (10:03)
[2021-07-07] MEDS ORDERED: PROPOFOL 10 MG/ML 20 ML VIAL IV ONE (10:03)
--- NOTE | 2021-07-07 10:20 | P.PCN ---
Date of Procedure: 07/07/21 Procedure(s) Performed: BRIEF HISTORY: Patient is a 60-year-old pleasant -[place] female scheduled for an elective colonoscopy as a part of prior history of colon polyps and chronic diarrhea for the last several months duration. She was diagnosed with lymphocytic colitis in the past PROCEDURE PERFORMED: Colonoscopy with random biopsy. PREOPERATIVE DIAGNOSIS: History of colon polyps and chronic diarrhea. IV sedation per Anesthesia. PROCEDURE: After informed consent was obtained, the patient, was brought into the endoscopy unit. IV sedation was administered by Anesthesia under continuous monitoring. Digital rectal examination was normal. Initially the Olympus CF-160 flexible video colonoscope was then inserted in the rectum, gradually advanced into the cecum without any difficulty. Careful examination was performed as the scope was gradually being withdrawn. Ileocecal valve and the appendiceal orifice were visualized and appeared normal. Prep was excellent. Mucosa of the cecum, ascending colon, transverse colon, descending colon, sigmoid colon, and rectum appeared normal. Random biopsies were done from ascending and descending colon to rule out laparoscopic/collagenous colitis Retroflexion was performed in the rectum and no lesions were seen. The patient tolerated the procedure well. IMPRESSION: Normal-appearing colon from rectum to cecum with no evidence of colorectal neoplasia . RECOMMENDATIONS: Findings of this examination were discussed with the patient as well as a family. She was advised to follow with the biopsy results. She can have a repeat colonoscopy in 10 years..
[2021-07-07 10:43] VITALS: RESP 16
[2021-07-07 11:04] VITALS: BP 118/73; PULSE 58
== END 2021-07-07 11:20 | disposition home or self-care (01) ==
LOC: ORWHC2ENDO 09:00
PROVIDERS: ATTEND Internal Medicine Gastroenterology
DX: Z86.010 Personal history of colon polyps (principal); J45.909 Unspecified asthma, uncomplicated; F41.9 Anxiety disorder, unspecified; K21.9 Gastro-esophageal reflux disease without esophagitis; Z88.0 Allergy status to penicillin; Z88.2 Allergy status to sulfonamides; Z79.899 Other long term (current) drug therapy
CPT/HCPCS: 45380; 88305; J2704; J2001

== ENCOUNTER 2021-07-16 08:09 | Day surgery (SDC) | payer MEDICAID ==
[2021-07-16 08:25] VITALS: TEMP 97.3
[2021-07-16] MEDS ORDERED: LACTATED RINGERS 1,000 ML IV ONE (08:31)
[2021-07-16] MEDS ORDERED: LACTATED RINGERS 1,000 ML IV SCH (08:36)
[2021-07-16] MEDS ORDERED: LIDOCAINE 1% (10MG/ML) FOR IV START INTRADERMA PRN (08:36)
[2021-07-16] MEDS ORDERED: MIDAZOLAM 2 MG/2 ML VIAL ONE (09:06)
[2021-07-16] MEDS ORDERED: ROPIVACAINE 5MG/ML 20ML VIAL ONE (09:06)
[2021-07-16] MEDS ORDERED: methylPREDNISolone ACETATE 40 MG/ML 1 ML VIAL ONE (09:06)
[2021-07-16] MEDS ORDERED: fentaNYL (PF) 50 MCG/ML 2 ML AMP ONE (09:06)
--- NOTE | 2021-07-16 09:43 | P.PCN ---
Date of Procedure: 07/16/21 Procedure(s) Performed: PREOPERATIVE DIAGNOSIS: 1-Lumbar Spondylosis with Facet Arthropathy without myelopathy. POSTOPERATIVE DIAGNOSIS: 1- Lumbar Spondylosis with Facet Arthropathy without myelopathy. PROCEDURES : Bilateral Radiofrequency thermocoagulation, L3 , L4 , and L5 medial branch, with fluoroscopic guidance (fluoroscopy images available in the radiology department) ( to denervate the facet joint at Bilateral L4-5 ,and L5-S1 levels ). ANESTHESIA: Monitored anesthesia care by anesthesia department . EBL: Minimal PROCEDURE INDICATION: The patient with low back pain secondary to lumbar facet arthropathy who had more than 50% relief of her pain with previous diagnostic lumbar medial branch block with bupivacaine. she had RFA medial branch at L4 5 and L5-S1 done in December 2020 ,and she had good pain relief and she is here today to have a repeat RFA PROCEDURE DESCRIPTION / TECHNIQUE: The patient was seen and identified in the preoperative area. Risks, benefits, complications, including but not limited to risk of infection ,bleeding , allergic reactions to the medications and no complete pain releife , and alternatives were discussed with the patient, the patient agreed to proceed with the procedure and signed the consent. IV was sta rted. Vital signs remained stable throughout the procedure. Patient was taken to the OR and time out was completed. The patient was placed in the prone position on the procedure table. The lumber area was prepped and draped in the usual sterile fashion. . Vital signs were closely monitored during the procedure .IV sedation was used during the procedure to decrease patients anxiety. Using AP and then oblique fluoroscopy, the ``eye of the Erick dog corresponding to the connection between the superior and transverse articular processes of right L3, L4, and L5 were identified, marked, and localized with 1% lidocaine. Subsequently, a 18 -cq radiofrequency cannula with a 10- mm active tip was advanced guided by fluoroscopy to each of the``eyes of the Erick dog at right L3, L4, and L5. Each site then underwent sensory testing at 50 Hz and 0 to 1 volt and motor testing at 2.5 Hz and 0 to 3 volt with local stimulation, but no radicular symptoms down the legs. Thereafter each sites underwent radiofrequency thermocoagulation at 80 degrees celsius for 90 seconds after injecting 0.5 ml of PF Ropivacaine 1ml, then after the thermocoagulation done , 1 ml of the block solution containing Depo-Medrol 20 mg and 3 ml of Ropivacaine 0.5% was injected at the right L3 , L4 , and L5 , levels after negative aspiration of CSF and blood and with no paresthesias. Cannulas were retracted while injecting lidocaine 1% until the needle is out. The same procedure was repeated at the level of Left L3, L4, and L5 levels. At the end of the procedure, the skin was cleansed and bandages were applied. COMPLICATIONS: No acute complications. DISPOSITION / PLANS: The patient was placed in a supine position and transferred to the recovery area in a stable condition for observation and was discharged from the recovery room after meeting discharge criteria. Home discharge instructions given to the patient by the staff. The patient was reexamined prior to discharge. The patient will schedule a follow up in the clinic in 2-4 weeks.
[2021-07-16] MEDS ORDERED: IV FLUID CONTINUATION 600 ML IV ONE (09:50)
--- NOTE | 2021-07-16 09:50 | FL ---
EXAMINATION TYPE: FL guided pain mgmt statistic DATE OF EXAM: 07/16/2021 HISTORY: Fluoroscopy time 16 seconds of fluoroscopy provided. IMPRESSION: 1. Fluoroscopy time.
[2021-07-16 09:52] VITALS: RESP 16
[2021-07-16 10:06] VITALS: BP 114/69; PULSE 66
== END 2021-07-16 10:35 | disposition home or self-care (01) ==
LOC: ORPAIN 08:09
PROVIDERS: ATTEND Specialist
DX: M51.36 Other intervertebral disc degeneration, lumbar region (principal); M47.816 Spondylosis without myelopathy or radiculopathy, lumbar region; Z88.0 Allergy status to penicillin; Z88.2 Allergy status to sulfonamides; E78.5 Hyperlipidemia, unspecified; J45.909 Unspecified asthma, uncomplicated; E07.9 Disorder of thyroid, unspecified; K21.9 Gastro-esophageal reflux disease without esophagitis; Z79.891 Long term (current) use of opiate analgesic; Z79.51 Long term (current) use of inhaled steroids; Z79.899 Other long term (current) drug therapy; Z90.710 Acquired absence of both cervix and uterus
CPT/HCPCS: 64635; 64636; J2250; J1030; J3010; J2795

== ENCOUNTER → 2021-08-05 | Outpatient (CLI) | payer MEDICAID ==
--- NOTE | 2021-08-05 12:46 | P.PAINPG ---
PQRS Measure Charge Sheet Comment: A 60 yr old email with a history of severe and chronic low back pain secondary to lumbar degenerative disc diseases and lumbar spondylosis with facet arthropathy presents today for evlauation of BL RFA L3-L5. She states she experienced 80% relief s/p procedure without any more LE pain. Pain level is currently at 3/10 in intensity, occasional sharp pain in the lower aspect of her lumbar spine which is provoked by bending, twisting and lifting. Pain is alleviated with medications, heat, topicals, injections, home-based stretching regimen and rest. She has not completed PT and her PT script . Interventional pain procedures completed include [place] from Dr Viveros Patient is currently on [place] from Morgan Perez [facility]. Patient denies any side effects of the medication(s), denies excessive drowsiness or sleepiness, denies suicidal ideation and reports that the current pain medication is helping to control the pain and improve activities of daily living. Patient denies any motor or sensory deficits. Patient denies any fever or night sweats, denies any change in the bowel movements or urination. Physical Examination: -Constitutional: Cooperative. Not in acute distress . -HEENT: Neck is supple. No lymphadenopathy. No thyromegaly. Normal thyroid size. Eyes: No ptosis , no icterus, no photophobia. ENT: No auditory deficits. Normal oropharynx. No Thrush. - Respiratory: Chest clear to auscultations bilaterally. No wheezing. No rhonchi. - Cardiovascular: Regular rate and rhythm. S1 / S2 , no S3 , no S4. - Gastrointestinal: Abdomen soft no tenderness. Bowel sounds positive in all four quadrants. No organomegaly. - Genitourinary: Deferred. - Neurologic: Cranial nerve II to XII intact. No focal neurological deficits. - Psychatric: Alert & oriented x 3. Matching mood & appropriate affect. Judgment and insight intact. - Lymphatic: No Lymphadenopathy. - Musculoskeletal: Cervical spine: Muscle bulk/ tone/ strength in the bilateral upper extremities normal Vertebral body tenderness to palpation over Facet loading test positive Thoracic spine Muscle bulk / tone/ strength in the bilateral paraspinal muscles normal Vertebral body tender to palpation over Facet loading test positive Lumbar spine: Motor bulk/ tone/ strength lower extremities , thigh and legs : 5/5 Deep tendon reflexes : Normal Knee Jerk. Normal Ankle Jerk . Vertebral body tenderness to palpation over L4, L5 Lumbar Facet Loading Test positive Straight Leg Raise: positive at 30 degrees right side/ left side Gaenslen's Test positive Sacral spine : Severe tenderness over the Sacroiliac joint: right side / left side Range of motion: Flexion of the lumbar spine <60 degrees Range of motion: Extension of the lumbar spine <20 degrees Gaenslen's Test positive Sathya's Test positive Daisy test: positive right side / left side Thigh Thrust Test Sacral Thrust Test Assessment and plan: Chronic low back pain secondary to lumbar degenerative disc disease , lumbar spondylosis with facet arthropathy without myelopathy Patient exhibited satisfactory and optimal pain relief status post procedure. She will benefit from physical therapy of her lumbar spine 3 times a week 6 weeks for lumbar spondylosis. She may return to this clinic on an as- needed basis. All patient questions answered MAPS reviewed and it was appropriate. I have spent 31 minutes on patient care today. Dr Haddad was available by phone for the evaluation of this patient. The time was used to review the medical records including relevant urine studies and Prescription history (MAPs), review of the available imaging, evaluation and examination of the patient, coordination of care with the medical staff and if applicable referring physicians, as well as creation of the medical record PQRS Narrative: Smoking Status Never smoker Hx Alcohol Use (MH) No Home Medications: Ambulatory Orders ALPRAZolam [Xanax] 0.25 mg PO HS PRN 04/14/16 HYDROcodone/APAP 10-325MG [[place] 10-325] 1 tab PO TID PRN 04/14/16 Montelukast [Singulair] 10 mg PO HS 04/14/16 Albuterol Sulfate [Ventolin HFA] 2 puff INHALATION RT-Q6H PRN 07/05/19 Pravastatin Sodium [Pravachol] 40 mg PO HS 07/05/19 Triamcinolone 0.1% Ointment [Kenalog 0.1% Ointment] 1 applic TOPICAL BID PRN 07/05/19 Budesonide-Formot 160-4.5 Mcg [Symbicort 160-4.5 Mcg Inhaler] 2 puff INHALATION RT-BID puff 07/08/19 Dicyclomine [Bentyl] 40 mg PO HS tab 07/08/19 Controlled Substance Measures - Controlled Substance Measures Is patient prescribed a controlled substance at discharge?: No
[2021-08-05 12:48] VITALS: BP 117/55; PULSE 74; RESP 18; TEMP 98.4
== END ==
LOC: PNWHC3 12:20
PROVIDERS: ATTEND Specialist
DX: M51.36 Other intervertebral disc degeneration, lumbar region (principal); M47.816 Spondylosis without myelopathy or radiculopathy, lumbar region; G89.29 Other chronic pain; Z88.0 Allergy status to penicillin; Z88.2 Allergy status to sulfonamides
CPT/HCPCS: 99211

== ENCOUNTER 2021-09-26 04:51 | Emergency (ER) | payer MEDICAID ==
[2021-09-26 04:58] VITALS: TEMP 98.5
[2021-09-26] MEDS ORDERED: SODIUM CHLORIDE 0.9% 500 ML 500 ML IV STA (05:10)
[2021-09-26] MEDS ORDERED: methylPREDNISolone SOD SUCCI 125 MG/2 ML VIAL IV STA (05:10)
[2021-09-26] MEDS ORDERED: IPRATROPIUM-ALBUTEROL 3 ML NEB INHALATION STA (05:10)
--- NOTE | 2021-09-26 05:11 | ED ---
SOB HPI - General Chief Complaint: Shortness of Breath Stated Complaint: Difficulty Breathing Time Seen by Provider: 09/26/21 04:53 Source: patient Mode of arrival: ambulatory Limitations: no limitations - Related Data Home Medications Medication Instructions Recorded Confirmed ALPRAZolam [Xanax] 0.25 mg PO HS PRN 04/14/16 08/05/21 HYDROcodone/APAP 10-325MG [[place] 1 tab PO TID PRN 04/14/16 08/05/21 10-325] Montelukast [Singulair] 10 mg PO HS 04/14/16 08/05/21 Albuterol Sulfate [Ventolin HFA] 2 puff INHALATION RT-Q6H PRN 07/05/19 08/05/21 Pravastatin Sodium [Pravachol] 40 mg PO HS 07/05/19 08/05/21 Triamcinolone 0.1% Ointment 1 applic TOPICAL BID PRN 07/05/19 08/05/21 [Kenalog 0.1% Ointment] Previous Rx's Medication Instructions Recorded Budesonide-Formot 160-4.5 Mcg 2 puff INHALATION RT-BID puff 07/08/19 [Symbicort 160-4.5 Mcg Inhaler] Dicyclomine [Bentyl] 40 mg PO HS tab 07/08/19 Albuterol Nebulized [Ventolin 2.5 mg INHALATION Q4H PRN #25 each 09/26/21 Nebulized] Albuterol Sulfate [Proair Hfa] 1 - 2 puff INHALATION Q4H PRN #8.5 09/26/21 gm Azithromycin [Zithromax Z Pack] 1 tab PO DIRECTED #6 tab 09/26/21 predniSONE 50 mg PO DAILY #5 tab 09/26/21 Allergies Allergy/AdvReac Type Severity Reaction Status Date / Time Penicillins Allergy Rash/Hives Verified 09/26/21 04:58 Sulfa (Sulfonamide Allergy Rash/Hives Verified 09/26/21 04:58 Antibiotics) Review of Systems ROS Statement: Those systems with pertinent positive or pertinent negative responses have been documented in the HPI. ROS Other: All systems not noted in ROS Statement are negative. Past Medical History Past Medical History: Asthma, GERD/Reflux, Thyroid Disorder Additional Past Medical History / Comment(s): Lower back pain and right leg cramping when driving. History of Any Multi-Drug Resistant Organisms: None Reported Past Surgical History: Bladder Surgery, Breast Surgery, Hysterectomy Additional Past Surgical History / Comment(s): THYROIDECTOMY. Past Anesthesia/Blood Transfusion Reactions: No Reported Reaction Past Psychological History: No Psychological Hx Reported Smoking Status: Never smoker Past Alcohol Use History: None Reported Past Drug Use History: None Reported - Past Family History Mother Family Medical History: No Reported History Father Family Medical History: No Reported History General Exam Limitations: no limitations Course Vital Signs 09/26/21 09/26/21 09/26/21 04:56 05:23 05:32 Temperature 98.5 F Pulse Rate 90 90 77 Respiratory 22 Rate Blood Pressure 167/82 O2 Sat by Pulse 97 Oximetry 09/26/21 06:35 Temperature Pulse Rate 90 Respiratory 18 Rate Blood Pressure 146/95 O2 Sat by Pulse 98 Oximetry Medical Decision Making - Lab Data Result diagrams: 09/26/21 05:16 Lab Results 09/26/21 09/26/21 Range/Units 05:16 05:16 WBC 6.0 (3.8-10.6) k/uL RBC 4.65 (3.80-5.40) m/uL Hgb 13.4 (11.4-16.0) gm/dL Hct 42.7 (34.0-46.0) % MCV 91.7 (80.0-100.0) fL MCH 28.9 (25.0-35.0) pg MCHC 31.5 (31.0-37.0) g/dL RDW 12.5 (11.5-15.5) % Plt Count 267 (150-450) k/uL MPV 7.6 Neutrophils % 62 % Lymphocytes % 23 % Monocytes % 8 % Eosinophils % 3 % Basophils % 1 % Neutrophils # 3.8 (1.3-7.7) k/uL Lymphocytes # 1.4 (1.0-4.8) k/uL Monocytes # 0.5 (0-1.0) k/uL Eosinophils # 0.2 (0-0.7) k/uL Basophils # 0.1 (0-0.2) k/uL PT 10.2 (9.0-12.0) sec INR 0.9 (<1.2) APTT 27.0 (22.0-30.0) sec - EKG Data -: EKG Interpreted by Me (EKG is sinus rhythm 80 ID 150 QRS 76 QTC 406) Disposition Clinical Impression: Acute exacerbation of chronic obstructive pulmonary disease, Asthma, Acute bronchitis Disposition: HOME SELF-CARE Condition: Good Instructions (If sedation given, give patient instructions): Acute Bronchitis (ED) Prescriptions: predniSONE 50 mg PO DAILY #5 tab Albuterol Sulfate [Proair Hfa] 1 - 2 puff INHALATION Q4H PRN #8.5 gm PRN Reason: Shortness Of Breath Albuterol Nebulized [Ventolin Nebulized] 2.5 mg INHALATION Q4H PRN #25 each PRN Reason: Shortness Of Breath Azithromycin [Zithromax Z Pack] 1 tab PO DIRECTED #6 tab Is patient prescribed a controlled substance at d/c from ED?: No Referrals: Ana Viveros MD [Primary Care Provider] - 1-2 days
--- NOTE | 2021-09-26 06:02 | XR ---
EXAMINATION TYPE: XR chest 1V portable DATE OF EXAM: 09/26/2021 COMPARISON: 07/05/2019 HISTORY: Short of breath TECHNIQUE: FINDINGS: There is no heart failure nor confluent pneumonic infiltrate. Costophrenic angles are clear . Bony thorax is intact. Heart size is fairly normal. IMPRESSION: Normal chest. No change.
[2021-09-26 06:12] LABS: Basophils # (A) 0.1 k/uL (0-0.2); Basophils % (A) 1 %; Eosinophils # (A) 0.2 k/uL (0-0.7); Eosinophils % (A) 3 %; HCT 42.7 % (34.0-46.0); HGB 13.4 gm/dL (11.4-16.0); Lymphocytes # (A) 1.4 k/uL (1.0-4.8); Lymphocytes % (A) 23 %; MCH 28.9 pg (25.0-35.0); MCHC 31.5 g/dL (31.0-37.0); MCV 91.7 fL (80.0-100.0); Mean Platelet Volume 7.6; Monocytes # (A) 0.5 k/uL (0-1.0); Monocytes % (A) 8 %; Neutrophils # (A) 3.8 k/uL (1.3-7.7); Neutrophils % (A) 62 %; Platelet Count 267 k/uL (150-450); RBC 4.65 m/uL (3.80-5.40); RDW 12.5 % (11.5-15.5)
[2021-09-26 06:28] LABS: INR 0.9 (<1.2); Prothrombin Time 10.2 sec (9.0-12.0)
[2021-09-26 06:35] VITALS: BP 146/95; PULSE 90; RESP 18
[2021-09-26] MEDS ORDERED: AZITHROMYCIN 500 MG TAB PO STA (06:39)
[2021-09-26 06:45] LABS: ALT 10 U/L (4-34); AST 24 U/L (14-36); African American GFR (CKD) >90 (>60 ml/min/1.73 sqM); Albumin 4.4 g/dL (3.5-5.0); Alkaline Phosphatase 81 U/L (38-126); Anion Gap 9 mmol/L; Blood Urea Nitrogen 8 mg/dL (7-17); Calcium 8.8 mg/dL (8.4-10.2); Carbon Dioxide 24 mmol/L (22-30); Chloride 106 mmol/L (98-107); Glucose 111 mg/dL (74-99); Magnesium 1.9 mg/dL (1.6-2.3); Non-African American GFR(CKD) >90 (>60 ml/min/1.73 sqM); Potassium 3.8 mmol/L (3.5-5.1); Sodium 139 mmol/L (137-145); Total Bilirubin 0.6 mg/dL (0.2-1.3); Total Protein 7.7 g/dL (6.3-8.2)
== END 2021-09-26 06:53 | disposition home or self-care (01) ==
LOC: EC 04:51
DX: J44.1 Chronic obstructive pulmonary disease with (acute) exacerbation (principal); J45.909 Unspecified asthma, uncomplicated; J20.9 Acute bronchitis, unspecified; K21.9 Gastro-esophageal reflux disease without esophagitis; E07.9 Disorder of thyroid, unspecified; Z88.0 Allergy status to penicillin; Z88.2 Allergy status to sulfonamides; Z79.51 Long term (current) use of inhaled steroids; Z79.899 Other long term (current) drug therapy
CPT/HCPCS: 36415; 94640; 93005; 83880; 80053; 83735; 84484; 85025; 85610; 85730; 71045; 99285; 96374; J2930

== ENCOUNTER → 2022-06-02 | Outpatient (CLI) | payer MEDICAID ==
--- NOTE | 2022-06-03 08:00 | MM ---
Reason for Exam: Screening (asymptomatic). Last mammogram was performed 2 year(s) and 5 month(s) ago. Patient History: Menarche at age 12. First Full-Term at age 18. Hysterectomy at age 45. Postmenopausal. Estrogen for 1 year from age 45 until age 46. Progesterone for 1 year from age 45 until age 46. Hormonal Contraceptives for 17 years from age 16 until age 33. 2002, Benign Excisional Biopsy on the right side. 1988, Benign Excisional Biopsy on the right side. 09/02/2014, Benign Core Biopsy on the right side. 08/20/2014, High risk Core Biopsy on the right side. 12/31/2009, High risk Excisional Biopsy on the right side. 11/27/2009, Benign Core Biopsy on the left side. 11/27/2009, High risk Core Biopsy on the right side. Maternal cousin had breast cancer. Risk Values: Kia 5 year model risk: 1.9%. NCI Lifetime model risk: 8.1%. Prior Study Comparison: 12/30/2015 Bilateral Screening Mammogram, [facility]. 03/21/2017 Bilateral Screening Mammogram, [facility]. 01/06/2020 Bilateral Screening Mammogram, [facility]. Tissue Density: The breast tissue is heterogeneously dense. This may lower the sensitivity of mammography. Findings: Analyzed By CAD. Mammotome biopsy clip left breast is redemonstrated. There is no suspicious group of microcalcifications or new suspicious mass in either breast. Overall Assessment: Benign, BI-RAD 2 Management: Screening Mammogram of both breasts in 1 year. A clinical breast exam by your physician is recommended on an annual basis and results should be correlated with mammographic findings. Electronically signed and approved by: Hector Camacho M.D.
== END | disposition home or self-care (01) ==
LOC: RADMAMWWP 14:05
PROVIDERS: ATTEND Internal Medicine
DX: Z12.31 Encounter for screening mammogram for malignant neoplasm of breast (principal); Z78.0 Asymptomatic menopausal state; Z80.3 Family history of malignant neoplasm of breast
CPT/HCPCS: 77063; 77067

== ENCOUNTER 2023-01-04 04:10 | Emergency (ER) | payer MEDICAID ==
[2023-01-04] MEDS ORDERED: predniSONE 20 MG TAB PO STA (04:20)
[2023-01-04] MEDS ORDERED: IPRATROPIUM-ALBUTEROL 3 ML NEB INHALATION STA ×2 (04:20→06:08)
[2023-01-04] MEDS ORDERED: AZITHROMYCIN 500 MG TAB PO STA (04:20)
[2023-01-04 04:28] VITALS: TEMP 98.7
--- NOTE | 2023-01-04 05:17 | ED ---
SOB HPI - General Chief Complaint: Shortness of Breath Stated Complaint: Difficulty Breathing, Eye Dryness Time Seen by Provider: 01/04/23 04:12 Source: patient, RN notes reviewed, old records reviewed Mode of arrival: ambulatory Limitations: no limitations - History of Present Illness Initial Comments: This is a 62-year-old female who presents today for evaluation of cough and congestion feeling decent significance. Patient states that when the weather is change her breathing is gotten worse with increased cough. No fevers no chest pain no other significant complaints. Patient did at home. She with minimal help presents today for evaluation, denying fevers MD Complaint: shortness of breath, cough, "asthma attack" -: hour(s) Severity: mild Consistency: constant Improves With: nothing Worsens With: nothing Known History Of: asthma Context: recent URI, recent illness Associated Symptoms: cough Treatments Prior to Arrival: none - Related Data Home Medications Medication Instructions Recorded Confirmed ALPRAZolam [Xanax] 0.25 mg PO HS PRN 04/14/16 01/02/23 HYDROcodone/APAP 10-325MG [Valliant 1 tab PO TID PRN 04/14/16 01/02/23 10-325] Montelukast [Singulair] 10 mg PO HS 04/14/16 01/02/23 Albuterol Sulfate [Ventolin HFA] 2 puff INHALATION RT-Q6H PRN 07/05/19 01/02/23 Pravastatin Sodium [Pravachol] 40 mg PO HS 07/05/19 01/02/23 Triamcinolone 0.1% Ointment 1 applic TOPICAL BID PRN 07/05/19 01/02/23 [Kenalog 0.1% Ointment] Previous Rx's Medication Instructions Recorded Budesonide-Formot 160-4.5 Mcg 2 puff INHALATION RT-BID puff 07/08/19 [Symbicort 160-4.5 Mcg Inhaler] Dicyclomine [Bentyl] 40 mg PO HS tab 07/08/19 Albuterol Nebulized [Ventolin 2.5 mg INHALATION Q4H PRN #25 each 09/26/21 Nebulized] Albuterol Sulfate [Proair Hfa] 1 - 2 puff INHALATION Q4H PRN #8.5 09/26/21 gm Albuterol Nebulized [Ventolin 2.5 mg INHALATION Q4H PRN #25 each 01/04/23 Nebulized] Albuterol Sulfate [Proair 1 puff INHALATION Q6H PRN #1 each 01/04/23 Digihaler] Azithromycin [Zithromax] 500 mg PO DAILY #5 tab 01/04/23 predniSONE 50 mg PO DAILY #5 tab 01/04/23 Allergies Allergy/AdvReac Type Severity Reaction Status Date / Time Penicillins Allergy Rash/Hives Verified 01/04/23 07:55 Sulfa (Sulfonamide Allergy Rash/Hives Verified 01/04/23 07:55 Antibiotics) Review of Systems ROS Statement: Those systems with pertinent positive or pertinent negative responses have been documented in the HPI. ROS Other: All systems not noted in ROS Statement are negative. Past Medical History Past Medical History: Asthma, GERD/Reflux, Thyroid Disorder Additional Past Medical History / Comment(s): Lower back pain and right leg cramping when driving. History of Any Multi-Drug Resistant Organisms: None Reported Past Surgical History: Bladder Surgery, Breast Surgery, Hysterectomy Additional Past Surgical History / Comment(s): THYROIDECTOMY. Past Anesthesia/Blood Transfusion Reactions: No Reported Reaction Past Psychological History: No Psychological Hx Reported Smoking Status: Never smoker - Past Family History Mother Family Medical History: No Reported History Father Family Medical History: No Reported History General Exam Limitations: no limitations General appearance: alert, in no apparent distress, anxious, in distress Head exam: Present: atraumatic, normocephalic, normal inspection Eye exam: Present: normal appearance, PERRL, EOMI. Absent: scleral icterus, conjunctival injection, periorbital swelling ENT exam: Present: normal exam, mucous membranes moist Neck exam: Present: normal inspection. Absent: tenderness, meningismus, lymphadenopathy Respiratory exam: Present: normal lung sounds bilaterally. Absent: respiratory distress, wheezes, rales, rhonchi, stridor Cardiovascular Exam: Present: regular rate, normal rhythm, normal heart sounds. Absent: systolic murmur, diastolic murmur, rubs, gallop, clicks GI/Abdominal exam: Present: soft, normal bowel sounds. Absent: distended, tenderness, guarding, rebound, rigid Extremities exam: Present: normal inspection, full ROM, normal capillary refill. Absent: tenderness, pedal edema, joint swelling, calf tenderness Back exam: Present: normal inspection Neurological exam: Present: alert, oriented X3, CN II-XII intact Psychiatric exam: Present: normal affect, normal mood Skin exam: Present: warm, dry, intact, normal color. Absent: rash Course Vital Signs 01/04/23 01/04/23 01/04/23 04:11 04:39 04:47 Temperature 98.7 F Pulse Rate 73 73 88 Respiratory 16 Rate Blood Pressure 162/87 O2 Sat by Pulse 100 Oximetry 01/04/23 01/04/23 01/04/23 06:11 06:25 06:32 Temperature Pulse Rate 72 72 77 Respiratory 19 Rate Blood Pressure 144/81 O2 Sat by Pulse 97 Oximetry - Reevaluation(s) Reevaluation #1: 01/04/23 05:52 Records reviewed Reevaluation #2: 01/04/23 05:52 Patient symptoms are improving Reevaluation #3: 01/04/23 05:53 Patient informed results questions answered Reevaluation #4: 01/04/23 05:53 Was pt. sent in by a medical professional or institution ([facility], [employer], urgent care, hospital, or shelter...) When possible be specific @ -no Did you speak to anyone other than the patient for history (EMS, parent, family, police, friend...)? What history was obtained from this source @ -no Did you review nursing and triage notes (agree or disagree)? Why? @ -agree Are old charts reviewed (outside hosp., previous admission, EMS record, old EKG, old radiological studies, urgent care reports/EKG's, shelter records)? Report findings @ -yes Differential Diagnosis (chest pain, altered mental status, abdominal pain women, abdominal pain men, vaginal bleeding, weakness, fever, dyspnea, syncope, headache, dizziness, GI bleed, back pain, seizure, CVA, palpatations, mental health, musculoskeletal)? @ -prior EKG interpreted by me (3pts min.). @ -yes X-rays interpreted by me (1pt min.). @ -yes CT interpreted by me (1pt min.). @ -no U/S interpreted by me (1pt. min.). @ -no What testing was considered but not performed or refused? (CT, X-rays, U/S, labs)? Why? @ -none What meds were considered but not given or refused? Why? @ -none Did you discuss the management of the patient with other professionals (professionals i.e. , PA, BOILER MAKER, lab, RT, psych nurse, social human services assistants, network architect manager, teacher, strategic intelligence officer, field nurse case manager)? Give summary @ -no Was smoking cessation discussed for >3mins.? @ -no Was critical care preformed (if so, how long)? @ -no Were there social determinants of health that impacted care today? How? (Homelessness, low income, unemployed, alcoholism, drug addiction, transportation, low edu. Level, literacy, decrease access to med. care, longterm, rehab)? @ -none Was there de-escalation of care discussed even if they declined (Discuss DNR or withdrawal of care, Hospice)? DNR status @ -no What co-morbidities impacted this encounter? (DM, HTN, Smoking, COPD, CAD, Cancer, CVA, ARF, Chemo, Hep., AIDS, mental health diagnosis, sleep apnea, morbid obesity)? @ -none Was patient admitted / discharged? Hospital course, mention meds given and route, prescriptions, significant lab abnormalities, going to OR and other pertinent info. @ - 62 female to the emergency department for evaluation of shortness of breath cough or congestion, patient be admitted for significant COPD exacerbation Undiagnosed new problem with uncertain prognosis? @ -no Drug Therapy requiring intensive monitoring for toxicity (Heparin, Nitro, Insulin, Cardizem)? @ -no Were any procedures done? @ -no Diagnosis/symptom? @ -COPD exacerbation Acute, or Chronic, or Acute on Chronic? @ -Acute Uncomplicated (without systemic symptoms) or Complicated (systemic symptoms)? @ -Complicated Side effects of treatment? @ -no Exacerbation, Progression, or Severe Exacerbation? @ -exacerbation Poses a threat to life or bodily function? How? (Chest pain, [place], NH, pneumonia, PE, COPD, DKA, ARF, appy, cholecystitis, CVA, Diverticulitis, Homicidal, Suicidal, threat to staff... and all critical care pts) @ -yes with significant rust for a stress Reevaluation #5: 01/04/23 05:53 Differential Dyspnea: Coronary syndrome, arrhythmia, tamponade, asthma, COPD, pulmonary embolism, pneumonia, pneumothorax, pulmonary effusion, anaphylaxis, diabetic ketoacidosis, flailed chest, pulmonary contusion, diaphragmatic rupture, anemia, neuromuscular, this is not meant to be an all-inclusive list. Medical Decision Making - Medical Decision Making 62 female to the emergency department for evaluation today. Patient presents with increased dyspnea. Wheezing. Patient to be admitted for persistent breathing treatments here in the ER and patient can be discharged home - Radiology Data Radiology results: report reviewed (Chest x-rays negative for acute disease), image reviewed Disposition Clinical Impression: Asthma, Dyspnea, Wheeze, Acute exacerbation of chronic obstructive pulmonary disease Disposition: HOME SELF-CARE Instructions (If sedation given, give patient instructions): Asthma (ED), Acute Bronchitis (ED), Chronic Bronchitis (ED) Prescriptions: predniSONE 50 mg PO DAILY #5 tab Albuterol Sulfate [Proair Digihaler] 1 puff INHALATION Q6H PRN #1 each PRN Reason: Cough Albuterol Nebulized [Ventolin Nebulized] 2.5 mg INHALATION Q4H PRN #25 each PRN Reason: Shortness Of Breath Azithromycin [Zithromax] 500 mg PO DAILY #5 tab Is patient prescribed a controlled substance at d/c from ED?: No Referrals: Ana Viveros MD [Primary Care Provider] - 1-2 days Time of Disposition: 06:40
[2023-01-04 06:15] VITALS: BP 144/81; RESP 19
[2023-01-04 06:37] VITALS: PULSE 77
--- NOTE | 2023-01-04 07:46 | XR ---
EXAMINATION TYPE: XR chest 1V portable DATE OF EXAM: 01/04/2023 4:29 AM CLINICAL INDICATION:Female, 62 years old with history of cough; COMPARISON: Chest radiographs from 09/26/2021. TECHNIQUE: XR chest 1V portable Frontal view of the chest. FINDINGS: Lungs/Pleura: There is flattening of the diaphragm with increased lucency of the lungs. No evidence o f pneumothorax, pleural effusion or focal consolidation. Pulmonary vascularity: Unremarkable. Heart/mediastinum: Cardiomediastinal silhouette is unremarkable. Musculoskeletal: No acute osseous pathology. Other findings: None IMPRESSION: 1. No acute cardiopulmonary disease process. 2. COPD changes.
== END 2023-01-04 07:00 | disposition home or self-care (01) ==
LOC: EC 04:10
DX: J44.1 Chronic obstructive pulmonary disease with (acute) exacerbation (principal); Z79.899 Other long term (current) drug therapy; Z88.0 Allergy status to penicillin; Z88.2 Allergy status to sulfonamides
CPT/HCPCS: 94640 ×2; 71045; 99285; J7512

== ENCOUNTER 2023-01-04 07:41 | Day surgery (SDC) | payer MEDICAID ==
[2023-01-04 08:11] VITALS: TEMP 97.3
[2023-01-04] MEDS ORDERED: HYDROCORTISONE SUCCINATE 100 MG/2 ML VIAL IV ONE (08:15)
[2023-01-04] MEDS ORDERED: LIDOCAINE 2% (PF) 20 MG/ML 5 ML VIAL ONE (08:25)
[2023-01-04] MEDS ORDERED: PROPOFOL 10 MG/ML 20 ML VIAL IV ONE (08:25)
--- NOTE | 2023-01-04 08:32 | P.PCN ---
Date of Procedure: 01/04/23 Procedure(s) Performed: BRIEF HISTORY: Patient is a 62-year-old, pleasant, white female scheduled for an upper endoscopy as a part of evaluation of long-standing history of GERD. He is presently on Protonix 40 mg twice daily and symptoms are gradually improving. She is scheduled for an upper endoscopy to rule out complicated reflux disease. PROCEDURE PERFORMED: Esophagogastroduodenoscopy with biopsy. PREOPERATIVE DIAGNOSIS: Long-standing history of GERD. IV sedation per anesthesia. PROCEDURE: After informed consent was obtained, the patient was brought into the endoscopy unit. IV sedation was administered by Anesthesia under continuous monitoring. Initially the Olympus GIF-140 video endoscope was inserted into the mouth. Esophagus intubated without any difficulty. It was gradually advanced into the stomach and duodenum and carefully examined. The bulb and the second part of the duodenum appeared normal. The scope at this time was withdrawn to the stomach, adequately insufflated with air, and upon careful examination, mucosa of the antrum, had mild antral gastritis and biopsies were done from this area. Mucosa of the body, cardia and the fundus appeared normal. The scope was then withdrawn into the esophagus. Mall hiatal hernia noted. The GE junction was located at 39 cm from the incisors. The esophagus appeared normal. There were no erosions or ulcerations seen and the patient tolerated the procedure well. IMPRESSION: 1. Small hiatal hernia but no evidence of esophagitis or Rodney's esophagus. 2. Mild antral gastritis. RECOMMENDATIONS: The findings of this examination were discussed with the patient as well his family. She was advised to continue with Protonix 40 mg twice daily and follow antireflux measures and in 3 months she can attempt at decreasing to once daily based on the symptoms. Follow up in office in 6 months..
[2023-01-04 09:26] VITALS: BP 147/78; PULSE 78; RESP 18
== END 2023-01-04 09:22 | disposition home or self-care (01) ==
LOC: ORWHC2ENDO 07:41
PROVIDERS: ATTEND Internal Medicine Gastroenterology
DX: K29.50 Unspecified chronic gastritis without bleeding (principal); K44.9 Diaphragmatic hernia without obstruction or gangrene; Z88.0 Allergy status to penicillin; Z88.2 Allergy status to sulfonamides; J45.909 Unspecified asthma, uncomplicated; Z98.890 Other specified postprocedural states; Z79.899 Other long term (current) drug therapy
CPT/HCPCS: 88305; 43239; J1720; J2704; J2001

== ENCOUNTER → 2023-01-25 | Outpatient (CLI) | payer MEDICAID ==
--- NOTE | 2023-01-27 06:26 | MR ---
EXAMINATION TYPE: MR knee RT wo con DATE OF EXAM: 01/25/2023 COMPARISON: NONE HISTORY: Right knee pain , locking, and swelling x3 weeks, TECHNIQUE: Multiplanar, multisequence images of the knee is performed without IV contrast. FINDINGS: MEDIAL MENISCUS: Some vague increased signal posterior horn medial meniscus coronal image 25 does not definitively extend to articular surface. LATERAL MENISCUS: Anterior and posterior horns are intact without tear. CRUCIATE LIGAMENTS: The anterior and posterior cruciate ligaments are intact and unremarkable. COLLATERAL LIGAMENTS: The medial collateral ligament and lateral collateral ligament complex are inta ct. Fluid signal surrounds the medial collateral ligament. EXTENSOR MECHANISM: Visualized quadriceps and patellar tendons are intact. EFFUSION: Small to moderate size suprapatellar joint effusion. POPLITEAL CYST: Small size popliteal/cedeno cyst. TRICOMPARTMENT SPACES: Tricompartment joint space loss which is moderate to severe involving the love llofemoral compartment. Mild to moderate tricompartment joint space spurring. CARTILAGE: Significant chondromalacia patella with full-thickness cartilaginous loss along the verification specialist ior patellar pole. BONE MARROW SIGNAL: Heterogeneous subtle increased T2 signal throughout the distal medial femoral met aphysis and medial condyle. OTHER: No additional significant abnormality is appreciated. IMPRESSION: 1. Tricompartment degenerative changes that are fairly advanced in appearance involving the patellofe moral compartment as detailed above. 2. Subtle diffuse osseous edema over roughly 6 x 4.5 cm aspect of the medial aspect distal femur. 3. Mild MCL sprain injury. 4. At least intrasubstance tear posterior horn medial meniscus. 5. Small to moderate-sized patellar joint effusion. 6. Small sized popliteal cyst.
== END | disposition home or self-care (01) ==
LOC: RADMRIMAIN 15:59
PROVIDERS: ATTEND Orthopaedic Surgery
DX: M17.11 Unilateral primary osteoarthritis, right knee (principal); M25.461 Effusion, right knee; M23.321 Other meniscus derangements, posterior horn of medial meniscus, right knee; S83.411A Sprain of medial collateral ligament of right knee, initial encounter; R60.0 Localized edema; X58.XXXA Exposure to other specified factors, initial encounter

== ENCOUNTER 2023-02-01 03:26 | Emergency (ER) | payer MEDICAID ==
[2023-02-01 03:45] VITALS: TEMP 98.1
[2023-02-01] MEDS ORDERED: methylPREDNISolone SOD SUCCI 125 MG/2 ML VIAL IV STA (03:51)
[2023-02-01] MEDS ORDERED: IPRATROPIUM-ALBUTEROL 3 ML NEB INHALATION STA (03:51)
[2023-02-01] MEDS ORDERED: SODIUM CHLORIDE 0.9% 500 ML 500 ML IV STA (03:51)
--- NOTE | 2023-02-01 03:52 | ED ---
URI HPI - General Chief Complaint: Upper Respiratory Infection Stated Complaint: Cough, vomiting Time Seen by Provider: 02/01/23 03:31 Source: patient, RN notes reviewed, old records reviewed Mode of arrival: ambulatory Limitations: no limitations - History of Present Illness Initial Comments: This is a 62-year-old female to the emergency department for evaluation of cough type throat sore throat losing voice congestion shortness of breath. Patient s tates test for coronavirus but negative. MD Complaint: cough, sore throat -: days(s) Severity: moderate Severity scale (1-10): 4 Quality: burning, tingling Consistency: constant Improves With: nothing Worsens With: nothing Associated Symptoms: chills, nasal congestion, sore throat, cough Treatments Prior to Arrival: none - Related Data Home Medications Medication Instructions Recorded Confirmed ALPRAZolam [Xanax] 0.25 mg PO HS PRN 04/14/16 01/02/23 HYDROcodone/APAP 10-325MG [Ingalls 1 tab PO TID PRN 04/14/16 01/02/23 10-325] Montelukast [Singulair] 10 mg PO HS 04/14/16 01/02/23 Albuterol Sulfate [Ventolin HFA] 2 puff INHALATION RT-Q6H PRN 07/05/19 01/02/23 Pravastatin Sodium [Pravachol] 40 mg PO HS 07/05/19 01/02/23 Triamcinolone 0.1% Ointment 1 applic TOPICAL BID PRN 07/05/19 01/02/23 [Kenalog 0.1% Ointment] Previous Rx's Medication Instructions Recorded Budesonide-Formot 160-4.5 Mcg 2 puff INHALATION RT-BID puff 07/08/19 [Symbicort 160-4.5 Mcg Inhaler] Dicyclomine [Bentyl] 40 mg PO HS tab 07/08/19 Albuterol Nebulized [Ventolin 2.5 mg INHALATION Q4H PRN #25 each 09/26/21 Nebulized] Albuterol Sulfate [Proair Hfa] 1 - 2 puff INHALATION Q4H PRN #8.5 09/26/21 gm Albuterol Nebulized [Ventolin 2.5 mg INHALATION Q4H PRN #25 each 01/04/23 Nebulized] Albuterol Sulfate [Proair 1 puff INHALATION Q6H PRN #1 each 01/04/23 Digihaler] Azithromycin [Zithromax] 500 mg PO DAILY #5 tab 01/04/23 predniSONE 50 mg PO DAILY #5 tab 01/04/23 Allergies Allergy/AdvReac Type Severity Reaction Status Date / Time Penicillins Allergy Rash/Hives Verified 02/01/23 03:30 Sulfa (Sulfonamide Allergy Rash/Hives Verified 02/01/23 03:30 Antibiotics) Review of Systems ROS Statement: Those systems with pertinent positive or pertinent negative responses have been documented in the HPI. ROS Other: All systems not noted in ROS Statement are negative. Past Medical History Past Medical History: Asthma, GERD/Reflux, Thyroid Disorder Additional Past Medical History / Comment(s): Lower back pain and right leg cramping when driving. History of Any Multi-Drug Resistant Organisms: None Reported Past Surgical History: Bladder Surgery, Breast Surgery, Hysterectomy Additional Past Surgical History / Comment(s): THYROIDECTOMY. Past Anesthesia/Blood Transfusion Reactions: No Reported Reaction Past Psychological History: No Psychological Hx Reported Smoking Status: Never smoker Past Alcohol Use History: None Reported Past Drug Use History: None Reported - Past Family History Mother Family Medical History: No Reported History Father Family Medical History: No Reported History General Exam Limitations: no limitations General appearance: alert, in no apparent distress Head exam: Present: atraumatic, normocephalic, normal inspection Eye exam: Present: normal appearance, PERRL, EOMI. Absent: scleral icterus, conjunctival injection, periorbital swelling ENT exam: Present: normal exam, mucous membranes moist Neck exam: Present: normal inspection. Absent: tenderness, meningismus, lymphadenopathy Respiratory exam: Present: normal lung sounds bilaterally. Absent: respiratory distress, wheezes, rales, rhonchi, stridor Cardiovascular Exam: Present: regular rate, normal rhythm, normal heart sounds. Absent: systolic murmur, diastolic murmur, rubs, gallop, clicks GI/Abdominal exam: Present: soft, normal bowel sounds. Absent: distended, tenderness, guarding, rebound, rigid Extremities exam: Present: normal inspection, full ROM, normal capillary refill. Absent: tenderness, pedal edema, joint swelling, calf tenderness Back exam: Present: normal inspection Neurological exam: Present: alert, oriented X3, CN II-XII intact Psychiatric exam: Present: normal affect, normal mood Skin exam: Present: warm, dry, intact, normal color. Absent: rash Course Vital Signs 02/01/23 02/01/23 02/01/23 03:27 04:15 04:23 Temperature 98.1 F Pulse Rate 84 76 80 Respiratory 18 Rate Blood Pressure 150/84 O2 Sat by Pulse 98 Oximetry 02/01/23 05:51 Temperature Pulse Rate 82 Respiratory 19 Rate Blood Pressure 138/78 O2 Sat by Pulse 97 Oximetry - Reevaluation(s) Reevaluation #1: 02/01/23 04:41 Record is reviewed Reevaluation #2: This chest pain is resolved Reevaluation #3: Patient is informed results questions answered prefers discharged home Reevaluation #4: 02/01/23 04:41 Was pt. sent in by a medical professional or institution ([facility], [employer], urgent care, hospital, or half-way...) When possible be specific @ -no Did you speak to anyone other than the patient for history (EMS, parent, family, police, friend...)? What history was obtained from this source @ -no Did you review nursing and triage notes (agree or disagree)? Why? @ -agree Are old charts reviewed (outside hosp., previous admission, EMS record, old EKG, old radiological studies, urgent care reports/EKG's, half-way records)? Report findings @ -yes Differential Diagnosis (chest pain, altered mental status, abdominal pain women, abdominal pain men, vaginal bleeding, weakness, fever, dyspnea, syncope, heada corey, dizziness, GI bleed, back pain, seizure, CVA, palpatations, mental health, musculoskeletal)? @ -prior EKG interpreted by me (3pts min.). @ -yes X-rays interpreted by me (1pt min.). @ -yes CT interpreted by me (1pt min.). @ -no U/S interpreted by me (1pt. min.). @ -no What testing was considered but not performed or refused? (CT, X-rays, U/S, labs)? Why? @ -none What meds were considered but not given or refused? Why? @ -none Did you discuss the management of the patient with other professionals (professionals i.e. Dr., PA, [employer], lab, RT, psych nurse, social sciences professor, architectural drafting instructor, teacher, seaman officer, egg caser)? Give summary @ -no Was smoking cessation discussed for >3mins.? @ -no Was critical care preformed (if so, how long)? @ -no Were there social determinants of health that impacted care today? How? (Homelessness, low income, unemployed, alcoholism, drug addiction, smith sportation, low edu. Level, literacy, decrease access to med. care, residential, rehab)? @ -none Was there de-escalation of care discussed even if they declined (Discuss DNR or withdrawal of care, Hospice)? DNR status @ -no What co-morbidities impacted this encounter? (DM, HTN, Smoking, COPD, CAD, Cancer, CVA, ARF, Chemo, Hep., AIDS, mental health diagnosis, sleep apnea, morbid obesity)? @ -none Was patient admitted / discharged? Hospital course, mention meds given and route, prescriptions, significant lab abnormalities, going to OR and other pertinent info. @ - 62 female to the emergency department for evaluation of cough congestion occasional chest pain, patient does have upper respiratory infection but no other acute findings and patient can be discharged home Discharge Undiagnosed new problem with uncertain prognosis? @ -no Drug Therapy requiring intensive monitoring for toxicity (Heparin, Nitro, Insulin, Cardizem)? @ -no Were any procedures done? @ -no Diagnosis/symptom? @ -Chest pain Acute, or Chronic, or Acute on Chronic? @ -Acute Uncomplicated (without systemic symptoms) or Complicated (systemic symptoms)? @ -Complicated Side effects of treatment? @ -no Exacerbation, Progression, or Severe Exacerbation? @ -exacerbation Poses a threat to life or bodily function? How? (Chest pain, [place], [place], pneumonia, PE, COPD, DKA, ARF, appy, cholecystitis, CVA, Diverticulitis, Homicidal, Suicidal, threat to staff... and all critical care pts) @ -no Medical Decision Making - Medical Decision Making 62 female to the emergency department for evaluation of cough congestion occasional chest pain, patient does have upper respiratory infection but no other acute findings and patient can be discharged home - Lab Data Result diagrams: 02/01/23 04:05 02/01/23 04:05 Lab Results 02/01/23 02/01/23 02/01/23 Range/Units 04:05 04:05 04:05 WBC 8.2 (3.8-10.6) k/uL RBC 4.39 (3.80-5.40) m/uL Hgb 13.1 (11.4-16.0) gm/dL Hct 39.8 (34.0-46.0) % MCV 90.6 (80.0-100.0) fL MCH 29.9 (25.0-35.0) pg MCHC 33.0 (31.0-37.0) g/dL RDW 12.6 (11.5-15.5) % Plt Count 297 (150-450) k/uL MPV 7.8 Neutrophils % 63 % Lymphocytes % 25 % Monocytes % 5 % Eosinophils % 6 % Basophils % 1 % Neutrophils # 5.1 (1.3-7.7) k/uL Lymphocytes # 2.0 (1.0-4.8) k/uL Monocytes # 0.4 (0-1.0) k/uL Eosinophils # 0.5 (0-0.7) k/uL Basophils # 0.0 (0-0.2) k/uL PT 10.4 (10.0-12.5) sec INR 0.9 (<1.2) APTT 27.4 (22.0-30.0) sec D-Dimer 0.73 H (<0.60) mg/L FEU Sodium 140 (137-145) mmol/L Potassium 3.6 (3.5-5.1) mmol/L Chloride 103 (98-107) mmol/L Carbon Dioxide 24 (22-30) mmol/L Anion Gap 13 mmol/L BUN 8 (7-17) mg/dL Creatinine 0.65 (0.52-1.04) mg/dL Est GFR (CKD-EPI)AfAm >90 (>60 ml/min/1.73 sqM) Est GFR (CKD-EPI)NonAf >90 (>60 ml/min/1.73 sqM) Glucose 115 H (74-99) mg/dL Calcium 9.6 (8.4-10.2) mg/dL Magnesium 2.0 (1.6-2.3) mg/dL Total Bilirubin 0.9 (0.2-1.3) mg/dL AST 21 (14-36) U/L ALT 13 (4-34) U/L Alkaline Phosphatase 80 (38-126) U/L Troponin I (0.000-0.034) ng/mL NT-Pro-B Natriuret Pep 43 pg/mL Total Protein 7.3 (6.3-8.2) g/dL Albumin 4.3 (3.5-5.0) g/dL 02/01/23 Range/Units 04:05 WBC (3.8-10.6) k/uL RBC (3.80-5.40) m/uL Hgb (11.4-16.0) gm/dL Hct (34.0-46.0) % MCV (80.0-100.0) fL MCH (25.0-35.0) pg MCHC (31.0-37.0) g/dL RDW (11.5-15.5) % Plt Count (150-450) k/uL MPV Neutrophils % % Lymphocytes % % Monocytes % % Eosinophils % % Basophils % % Neutrophils # (1.3-7.7) k/uL Lymphocytes # (1.0-4.8) k/uL Monocytes # (0-1.0) k/uL Eosinophils # (0-0.7) k/uL Basophils # (0-0.2) k/uL PT (10.0-12.5) sec INR (<1.2) APTT (22.0-30.0) sec D-Dimer (<0.60) mg/L FEU Sodium (137-145) mmol/L Potassium (3.5-5.1) mmol/L Chloride (98-107) mmol/L Carbon Dioxide (22-30) mmol/L Anion Gap mmol/L BUN (7-17) mg/dL Creatinine (0.52-1.04) mg/dL Est GFR (CKD-EPI)AfAm (>60 ml/min/1.73 sqM) Est GFR (CKD-EPI)NonAf (>60 ml/min/1.73 sqM) Glucose (74-99) mg/dL Calcium (8.4-10.2) mg/dL Magnesium (1.6-2.3) mg/dL Total Bilirubin (0.2-1.3) mg/dL AST (14-36) U/L ALT (4-34) U/L Alkaline Phosphatase (38-126) U/L Troponin I <0.012 (0.000-0.034) ng/mL NT-Pro-B Natriuret Pep pg/mL Total Protein (6.3-8.2) g/dL Albumin (3.5-5.0) g/dL - EKG Data -: EKG Interpreted by Me (EKG is sinus 65 ID 157 QRS 88 QTc 412) - Radiology Data Radiology results: report reviewed (Chest x-rays negative for acute disease), image reviewed Disposition Clinical Impression: Acute upper respiratory infection Disposition: HOME SELF-CARE Condition: Good Instructions (If sedation given, give patient instructions): Upper Respiratory Infection (ED) Is patient prescribed a controlled substance at d/c from ED?: No Referrals: Ana Viveros MD [Primary Care Provider] - 1-2 days Time of Disposition: 05:30
[2023-02-01 04:34] LABS: ALT 13 U/L (4-34); AST 21 U/L (14-36); African American GFR (CKD) >90 (>60 ml/min/1.73 sqM); Albumin 4.3 g/dL (3.5-5.0); Alkaline Phosphatase 80 U/L (38-126); Anion Gap 13 mmol/L; Blood Urea Nitrogen 8 mg/dL (7-17); Calcium 9.6 mg/dL (8.4-10.2); Carbon Dioxide 24 mmol/L (22-30); Chloride 103 mmol/L (98-107); Glucose 115 mg/dL (74-99); Non-African American GFR(CKD) >90 (>60 ml/min/1.73 sqM); Potassium 3.6 mmol/L (3.5-5.1); Sodium 140 mmol/L (137-145); Total Bilirubin 0.9 mg/dL (0.2-1.3); Total Protein 7.3 g/dL (6.3-8.2)
[2023-02-01 04:41] LABS: NT-Pro-B-Type Natriuretic Pept 43 pg/mL
[2023-02-01 04:53] LABS: Basophils % (A) 1 %; Eosinophils # (A) 0.5 k/uL (0-0.7); Eosinophils % (A) 6 %; HCT 39.8 % (34.0-46.0); HGB 13.1 gm/dL (11.4-16.0); Lymphocytes % (A) 25 %; MCH 29.9 pg (25.0-35.0); MCV 90.6 fL (80.0-100.0); Mean Platelet Volume 7.8; Monocytes # (A) 0.4 k/uL (0-1.0); Monocytes % (A) 5 %; Neutrophils # (A) 5.1 k/uL (1.3-7.7); Neutrophils % (A) 63 %; Platelet Count 297 k/uL (150-450); RBC 4.39 m/uL (3.80-5.40); RDW 12.6 % (11.5-15.5); WBC 8.2 k/uL (3.8-10.6)
[2023-02-01 05:27] LABS: INR 0.9 (<1.2); Partial Thromboplastin Time 27.4 sec (22.0-30.0); Prothrombin Time 10.4 sec (10.0-12.5)
--- NOTE | 2023-02-01 05:27 | XR ---
EXAMINATION TYPE: XR chest 1V portable DATE OF EXAM: 02/01/2023 COMPARISON: Prior chest x-ray January 04, 2023 HISTORY: Shortness of breath TECHNIQUE: Single frontal view of the chest is obtained. FINDINGS: There is no suspicious new focal air space opacity, pleural effusion, or pneumothorax seen . The cardiac silhouette size remains mildly enlarged. The osseous structures are intact. IMPRESSION: Mild Cardiomegaly without acute pulmonary process. No significant change from prior.
[2023-02-01 05:57] VITALS: BP 138/78; PULSE 82; RESP 19
== END 2023-02-01 06:03 | disposition home or self-care (01) ==
LOC: EC 03:26
DX: J06.9 Acute upper respiratory infection, unspecified (principal); J45.909 Unspecified asthma, uncomplicated; Z88.0 Allergy status to penicillin; Z88.2 Allergy status to sulfonamides
CPT/HCPCS: 36415; 94640; 93005; 85379; 83880; 80053; 83735; 84484; 85025; 85610; 85730; 71045; 99284; 96374; J2930

== ENCOUNTER → 2023-12-05 | Outpatient (CLI) | payer MEDICAID ==
--- NOTE | 2023-12-05 19:05 | US ---
EXAMINATION TYPE: US venous doppler duplex LE LT DATE OF EXAM: 12/05/2023 3:46 PM COMPARISON: NONE CLINICAL INDICATION: Female, 63 years old with history of I82.409 ACUTE EMBOLISM AND THOMBOS UNSP AMY P VN UN; Left leg swelling, no known prior DVT TECHNIQUE: The lower extremity deep venous system is examined utilizing real time linear array sonog los with graded compression, color doppler sonography, and spectral doppler. SIDE PERFORMED: Left FINDINGS: VESSELS IMAGED: Common Femoral Vein Deep Femoral Vein Greater Saphenous Vein * Femoral Vein Popliteal Vein Small Saphenous Vein * Proximal Calf Veins (* superficial vessels) Grayscale, color doppler, spectral doppler imaging performed of the deep veins of the left lower extr emity. Left Leg: Negative for DVT IMPRESSION: No evidence of deep vein thrombosis of the left lower extremity. [facility], , 12/05/2023 7:03 PM
== END | disposition home or self-care (01) ==
LOC: RADUSWWP 15:44
PROVIDERS: ATTEND Internal Medicine
DX: I82.402 Acute embolism and thrombosis of unspecified deep veins of left lower extremity (principal)

== ENCOUNTER → 2023-12-07 | Outpatient (CLI) | payer MEDICAID ==
[2023-12-07 18:34] LABS: African American GFR (CKD) >90 (>60 ml/min/1.73 sqM); Blood Urea Nitrogen 12 mg/dL (7-17); Non-African American GFR(CKD) >90 (>60 ml/min/1.73 sqM)
--- NOTE | 2023-12-14 10:09 | CT ---
EXAMINATION TYPE: CT abdomen pelvis w con CT DLP: 1463.8 mGycm, Automated exposure control for dose reduction was used. DATE OF EXAM: 12/07/2023 7:55 PM COMPARISON: CT abdomen pelvis most recent from 10/16/2019 CLINICAL INDICATION: Female, 63 years old with history of R10.84 GENERALIZED ABDOMINAL PAIN; Generali zed abdominal pain. TECHNIQUE: Axial CT abdomen pelvis w con;Sagittal and coronal reformats were created on a separate w orkstation. Contrast used:100ml mL of Isovue 300 with IV Contrast, (none if empty) Oral contrast used: with Oral Contrast (none if empty) FINDINGS: LOWER CHEST: Unremarkable ABDOMEN LIVER: Unremarkable GALLBLADDER AND BILE DUCTS: Unremarkable. PANCREAS: Unremarkable. SPLEEN: Unremarkable. ADRENAL GLANDS: Unremarkable. KIDNEYS AND URETERS: No evidence of hydronephrosis or renal calculus. The ureters are unremarkable. Simple appearing left renal cortical cyst. PELVIS BLADDER: Unremarkable REPRODUCTIVE: The uterus is surgically absent. ABDOMEN & PELVIS STOMACH AND BOWEL: No evidence of bowel obstruction. Small hiatal hernia. PERITONEUM/RETROPERITONEUM: No evidence of pneumoperitoneum or free fluid. VASCULATURE: No evidence of aortic aneurysm. MUSCULOSKELETAL: No acute osseous abnormalities LYMPH NODES: No gross evidence for lymphadenopathy. SOFT TISSUE/ABDOMINAL WALL: Small fat-containing umbilical hernia. IMPRESSION: 1. No evidence for acute process. 2. Small hiatal hernia. [facility], , 12/14/2023 10:07 AM
== END | disposition home or self-care (01) ==
LOC: RADCTMAIN 17:43
PROVIDERS: ATTEND Internal Medicine
DX: R10.84 Generalized abdominal pain
CPT/HCPCS: 36415; 74177; 82565; 84520

== ENCOUNTER 2023-12-27 03:58 | Emergency (ER) | payer MEDICAID ==
[2023-12-27] MEDS: IBUPROFEN 400 MG TAB PO STA (04:39)
[2023-12-27] MEDS: Acetaminophen-Codeine 300-30mg TAB PO STA (04:40)
[2023-12-27 04:45] LABS: Basophils # (A) 0.1 k/uL (0-0.2); Basophils % (A) 1 %; Eosinophils # (A) 0.2 k/uL (0-0.7); Eosinophils % (A) 3 %; HCT 40.8 % (34.0-46.0); HGB 12.9 gm/dL (11.4-16.0); Lymphocytes # (A) 2.3 k/uL (1.0-4.8); Lymphocytes % (A) 25 %; MCH 28.2 pg (25.0-35.0); MCHC 31.8 g/dL (31.0-37.0); MCV 88.8 fL (80.0-100.0); Mean Platelet Volume 7.6; Monocytes # (A) 0.4 k/uL (0-1.0); Monocytes % (A) 4 %; Neutrophils # (A) 6.1 k/uL (1.3-7.7); Neutrophils % (A) 66 %; Platelet Count 291 k/uL (150-450); RBC 4.59 m/uL (3.80-5.40); RDW 12.6 % (11.5-15.5); WBC 9.2 k/uL (3.8-10.6)
[2023-12-27 04:58] LABS: ALT 12 U/L (4-34); AST 27 U/L (14-36); African American GFR (CKD) >90 (>60 ml/min/1.73 sqM); Albumin 4.5 g/dL (3.5-5.0); Alkaline Phosphatase 82 U/L (38-126); Anion Gap 5 mmol/L; Blood Urea Nitrogen 12 mg/dL (7-17); Calcium 9.4 mg/dL (8.4-10.2); Carbon Dioxide 28 mmol/L (22-30); Chloride 104 mmol/L (98-107); Glucose 101 mg/dL (74-99); Non-African American GFR(CKD) 86 (>60 ml/min/1.73 sqM); Potassium 3.8 mmol/L (3.5-5.1); Sodium 137 mmol/L (137-145); Total Bilirubin 0.9 mg/dL (0.2-1.3); Total Protein 7.8 g/dL (6.3-8.2); Uric Acid 5.5 mg/dL (3.7-7.4)
--- NOTE | 2023-12-27 05:17 | ED ---
Extremity Problem HPI - General Chief complaint: Extremity Problem,Nontraumatic Stated complaint: Left ankle pain Time Seen by Provider: 12/27/23 04:12 Source: patient Limitations: no limitations - History of Present Illness Initial comments: This patient is a 63-year-old woman presenting to have evaluation of left ankle and foot pain. She states that it had started about a month ago. She does not remember having a specific injury to the foot. She did see her physician and was even sent for an MRI 2 weeks ago which she was not informed of the result yet. The patient denies associated symptoms. No fever or chills. No rash. She states that her mid be a tiny bit of swelling associated. Pain is mainly along the anterolateral aspect of the ankle and into the forefoot. It is aching. Constant. MD Complaint: extremity pain Onset/Timin -: month(s) Location: left -: Yes arthralgia Radiation: distal Quality: aching Consistency: constant Improves with: nothing Worsens with: nothing - Related Data Home Medications Medication Instructions Recorded Confirmed ALPRAZolam [Xanax] 0.25 mg PO HS PRN 04/14/16 01/02/23 HYDROcodone/APAP 10-325MG [[place] 1 tab PO TID PRN 04/14/16 01/02/23 10-325] Montelukast [Singulair] 10 mg PO HS 04/14/16 01/02/23 Albuterol Sulfate [Ventolin HFA] 2 puff INHALATION RT-Q6H PRN 07/05/19 01/02/23 Pravastatin Sodium [Pravachol] 40 mg PO HS 07/05/19 01/02/23 Triamcinolone 0.1% Ointment 1 applic TOPICAL BID PRN 07/05/19 01/02/23 [Kenalog 0.1% Ointment] Previous Rx's Medication Instructions Recorded Budesonide-Formot 160-4.5 Mcg 2 puff INHALATION RT-BID puff 07/08/19 [Symbicort 160-4.5 Mcg Inhaler] Dicyclomine [Bentyl] 40 mg PO HS tab 07/08/19 Albuterol Nebulized [Ventolin 2.5 mg INHALATION Q4H PRN #25 each 09/26/21 Nebulized] Albuterol Sulfate [Proair Hfa] 1 - 2 puff INHALATION Q4H PRN #8.5 09/26/21 gm Albuterol Nebulized [Ventolin 2.5 mg INHALATION Q4H PRN #25 each 01/04/23 Nebulized] Albuterol Sulfate [Proair 1 puff INHALATION Q6H PRN #1 each 01/04/23 Digihaler] Azithromycin [Zithromax] 500 mg PO DAILY #5 tab 01/04/23 predniSONE 50 mg PO DAILY #5 tab 01/04/23 Ibuprofen [Motrin] 600 mg PO Q8HR PRN #20 tab 12/27/23 Allergies Allergy/AdvReac Type Severity Reaction Status Date / Time Penicillins Allergy Rash/Hives Verified 12/27/23 03:59 Sulfa (Sulfonamide Allergy Rash/Hives Verified 12/27/23 03:59 Antibiotics) Review of Systems ROS Statement: Those systems with pertinent positive or pertinent negative responses have been documented in the HPI. ROS Other: All systems not noted in ROS Statement are negative. Constitutional: Denies: fever, chills, weakness Respiratory: Denies: cough, dyspnea Cardiovascular: Denies: chest pain, palpitations Gastrointestinal: Denies: abdominal pain, nausea, vomiting Genitourinary: Denies: dysuria, hematuria Musculoskeletal: Reports: as per HPI, arthralgia Skin: Denies: rash Past Medical History Past Medical History: Asthma, GERD/Reflux, Thyroid Disorder Additional Past Medical History / Comment(s): Lower back pain and right leg cramping when driving. History of Any Multi-Drug Resistant Organisms: None Reported Past Surgical History: Bladder Surgery, Breast Surgery, Hysterectomy Additional Past Surgical History / Comment(s): THYROIDECTOMY. Past Anesthesia/Blood Transfusion Reactions: No Reported Reaction Past Psychological History: No Psychological Hx Reported Smoking Status: Never smoker Past Alcohol Use History: None Reported Past Drug Use History: None Reported - Past Family History Mother Family Medical History: No Reported History Father Family Medical History: No Reported History General Exam Limitations: no limitations General appearance: alert, in no apparent distress Respiratory exam: Present: normal lung sounds bilaterally. Absent: respiratory distress, wheezes, rales, rhonchi, stridor, accessory muscle use Cardiovascular Exam: Present: regular rate, normal rhythm, normal heart sounds. Absent: systolic murmur, diastolic murmur, rubs, gallop Left Knee exam: Present: normal inspection, full ROM. Absent: tenderness, swelling Lower Leg exam: Present: normal inspection, full ROM. Absent: tenderness, swelling Ankle exam: Present: normal inspection, full ROM, tenderness, swelling. Absent: abrasion, laceration, ecchymosis, deformity, crepitus, dislocation, erythema, anterior draw sign Foot/Toe exam: Present: full ROM, tenderness. Absent: swelling, abrasion, laceration, ecchymosis, deformity, crepitus, dislocation, erythema, amputation, puncture wound, foreign body, calcaneal tenderness, tenderness at base of 5th metatarsal Neurovascular tendon exam: Present: no vascular compromise. Absent: pulse deficit, abnormal cap refill, motor deficit, sensory deficit, tendon deficit, extremity cold to touch, pallor, abnormal 2-point discrimination, decreased fine/light touch, foot drop Neurological exam: Present: alert. Absent: motor sensory deficit Skin exam: Present: warm, dry, intact, normal color. Absent: rash Course Vital Signs 12/27/23 12/27/23 04:00 05:25 Temperature 97.9 F 98.0 F Pulse Rate 63 74 Respiratory 19 18 Rate Blood Pressure 144/80 138/82 O2 Sat by Pulse 100 100 Oximetry Medical Decision Making - Medical Decision Making Was pt. sent in by a medical professional or institution (JUSTIN [place], TRAUMA REGISTRAR, urgent care, hospital, or prison...) When possible be specific @ -[No] Did you speak to anyone other than the patient for history (EMS, parent, family, police, friend...)? What history was obtained from this source @ -[No] Did you review nursing and triage notes (agree or disagree)? Why? @ -[I reviewed and agree with nursing and triage notes] Were old charts reviewed (outside hosp., previous admission, EMS record, old EKG, old radiological studies, urgent care reports/EKG's, prison records)? Report findings @ -[No old charts were reviewed] Differential Diagnosis (chest pain, altered mental status, abdominal pain women, abdominal pain men, vaginal bleeding, weakness, fever, dyspnea, syncope, headache, dizziness, GI bleed, back pain, seizure, CVA, palpatations, mental he alth, musculoskeletal)? @ -[Differential Musculoskeletal Muscular strain, contusion, ligament sprain, fracture, arthritis, septic arthritis, bursitis, cellulitis, muscle spasm, nerve compression, DVT, arterial occlusion, herpes zoster, electrolyte abnormality, tumor.... This is not meant to be in all inclusive list EKG interpreted by me (3pts min.). @ -[As above] X-rays interpreted by me (1pt min.). @ -[None done] CT interpreted by me (1pt min.). @ -[None done] U/S interpreted by me (1pt. min.). @ -[None done] What testing was considered but not performed or refused? (CT, X-rays, U/S, la bs)? Why? @ -[Imaging was considered but the patient did have MRI of 2 weeks ago What meds were considered but not given or refused? Why? @ -[None] Did you discuss the management of the patient with other professionals (professionals i.e. , PA, TRAUMA REGISTRAR, lab, RT, psych nurse, social work supervisor, cafeteria director, t eacher, mounted police officer, case briefer)? Give summary @ -[No] Was smoking cessation discussed for >3mins.? @ -[No] Was critical care preformed (if so, how long)? @ -[No] Were there social determinants of health that impacted care today? How? (Homelessness, low income, unemployed, alcoholism, drug addiction, transportation, low edu. Level, literacy, decrease access to med. care, nursing home, rehab)? @ -[No] Was there de-escalation of care discussed even if they declined (Discuss DNR or withdrawal of care, Hospice)? DNR status @ -[No] What co-morbidities impacted this encounter? (DM, HTN, Smoking, COPD, CAD, Cancer, CVA, ARF, Chemo, Hep., AIDS, mental health diagnosis, sleep apnea, morbid obesity)? @ -[None] Was patient admitted / discharged? Hospital course, mention meds given and route, prescriptions, significant lab abnormalities, going to OR and other pertinent info. @ -[Patient is a 63-year-old woman here with ankle/foot pain of approximately 1 month duration. The exam largely unremarkable. There is no erythema, warmth and no significant swelling to suggest septic arthritis or cellulitis/soft tissue infection. The patient has had MRI but was not informed of the result yet. She is given analgesia here and is feeling a little better and is appropriate to have further care as outpatient. We discussed appropriate follow-up and return parameters. Undiagnosed new problem with uncertain prognosis? @ -[No] Drug Therapy requiring intensive monitoring for toxicity (Heparin, Nitro, Insulin, Cardizem)? @ -[No] Were any procedures done? @ -[No] Diagnosis/symptom? @ -[Acute ankle arthralgia Acute, or Chronic, or Acute on Chronic? @ -[Acute Uncomplicated (without systemic symptoms) or Complicated (systemic symptoms)? @ -[Uncomplicated Side effects of treatment? @ -[No] Exacerbation, Progression, or Severe Exacerbation? @ -[No] Poses a threat to life or bodily function? How? (Chest pain, [place], [place], pneumonia, PE, COPD, DKA, ARF, appy, cholecystitis, CVA, Diverticulitis, Homicidal, Suicidal, threat to staff... and all critical care pts) @ -[No] - Lab Data Result diagrams: 12/27/23 04:30 12/27/23 04:30 Lab Results 12/27/23 12/27/23 Range/Units 04:30 04:30 WBC 9.2 (3.8-10.6) k/uL RBC 4.59 (3.80-5.40) m/uL Hgb 12.9 (11.4-16.0) gm/dL Hct 40.8 (34.0-46.0) % MCV 88.8 (80.0-100.0) fL MCH 28.2 (25.0-35.0) pg MCHC 31.8 (31.0-37.0) g/dL RDW 12.6 (11.5-15.5) % Plt Count 291 (150-450) k/uL MPV 7.6 Neutrophils % 66 % Lymphocytes % 25 % Monocytes % 4 % Eosinophils % 3 % Basophils % 1 % Neutrophils # 6.1 (1.3-7.7) k/uL Lymphocytes # 2.3 (1.0-4.8) k/uL Monocytes # 0.4 (0-1.0) k/uL Eosinophils # 0.2 (0-0.7) k/uL Basophils # 0.1 (0-0.2) k/uL Sodium 137 (137-145) mmol/L Potassium 3.8 (3.5-5.1) mmol/L Chloride 104 (98-107) mmol/L Carbon Dioxide 28 (22-30) mmol/L Anion Gap 5 mmol/L BUN 12 (7-17) mg/dL Creatinine 0.74 (0.52-1.04) mg/dL Est GFR (CKD-EPI)AfAm >90 (>60 ml/min/1.73 sqM) Est GFR (CKD-EPI)NonAf 86 (>60 ml/min/1.73 sqM) Glucose 101 H (74-99) mg/dL Uric Acid 5.5 (3.7-7.4) mg/dL Calcium 9.4 (8.4-10.2) mg/dL Total Bilirubin 0.9 (0.2-1.3) mg/dL AST 27 (14-36) U/L ALT 12 (4-34) U/L Alkaline Phosphatase 82 (38-126) U/L C-Reactive Protein 0.40 (0.00-0.80) mg/dL Total Protein 7.8 (6.3-8.2) g/dL Albumin 4.5 (3.5-5.0) g/dL Disposition Clinical Impression: Arthralgia of ankle, left Disposition: HOME SELF-CARE Condition: Good Instructions (If sedation given, give patient instructions): Arthralgia (ED) Prescriptions: Ibuprofen [Motrin] 600 mg PO Q8HR PRN #20 tab PRN Reason: Pain Is patient prescribed a controlled substance at d/c from ED?: No Referrals: Ana Viveros MD [Primary Care Provider] - 1-2 days
[2023-12-27 05:26] VITALS: BP 138/82; PULSE 74; RESP 18; TEMP 98
== END 2023-12-27 05:26 | disposition home or self-care (01) ==
LOC: EC 03:58
DX: M25.572 Pain in left ankle and joints of left foot (principal); Z88.0 Allergy status to penicillin; Z88.1 Allergy status to other antibiotic agents; Z88.2 Allergy status to sulfonamides
CPT/HCPCS: 36415; 80053; 84550; 85025; 86140; 99283

== ENCOUNTER 2024-02-19 13:05 | Observation (INO) | payer MEDICAID ==
--- NOTE | 2024-02-19 13:32 | ED ---
General Adult HPI - General Chief complaint: Chest Pain Stated complaint: chest pain Time Seen by Provider: 02/19/24 13:11 Source: patient, RN notes reviewed, old records reviewed Mode of arrival: wheelchair Limitations: no limitations - History of Present Illness Initial comments: 63-year-old female presenting for chest discomfort. Patient reports an upper chest tightness with exertion. She was diagnosed with coronavirus 1 week ago and has had cough over that time period. She was prescribed medication by her primary care provider. She has no prior history of CAD. No history of DVT or PE. She denies fever. - Related Data Home Medications Medication Instructions Recorded Confirmed ALPRAZolam [Xanax] 0.25 mg PO Q12H PRN 04/14/16 02/19/24 HYDROcodone/APAP 10-325MG [[place] 1 tab PO TID PRN 04/14/16 02/19/24 10-325] Montelukast [Singulair] 10 mg PO HS 04/14/16 02/19/24 Albuterol Nebulized [Ventolin 2.5 mg INHALATION RT-QID PRN 02/19/24 02/19/24 Nebulized] Albuterol Sulfate [Proair Hfa] 2 puff INHALATION RT-Q4H PRN 02/19/24 02/19/24 Cetirizine HCl [Zyrtec] 10 mg PO HS 02/19/24 02/19/24 Dicyclomine [Bentyl] 20 mg PO QID 02/19/24 02/19/24 Ezetimibe [Zetia] 10 mg PO HS 02/19/24 02/19/24 Pantoprazole [Protonix] 40 mg PO BID 02/19/24 02/19/24 Allergies Allergy/AdvReac Type Severity Reaction Status Date / Time Penicillins Allergy Rash/Hives Verified 02/19/24 14:16 Sulfa (Sulfonamide Allergy Rash/Hives Verified 02/19/24 14:16 Antibiotics) Review of Systems ROS Statement: Those systems with pertinent positive or pertinent negative responses have been documented in the HPI. ROS Other: All systems not noted in ROS Statement are negative. Past Medical History Past Medical History: Asthma, GERD/Reflux, Thyroid Disorder Additional Past Medical History / Comment(s): Lower back pain and right leg cram ping when driving. History of Any Multi-Drug Resistant Organisms: None Reported Past Surgical History: Bladder Surgery, Breast Surgery, Hysterectomy Additional Past Surgical History / Comment(s): THYROIDECTOMY. Past Anesthesia/Blood Transfusion Reactions: No Reported Reaction Past Psychological History: No Psychological Hx Reported Smoking Status: Never smoker Past Alcohol Use History: None Reported Past Drug Use History: None Reported - Past Family History Mother Family Medical History: No Reported History Father Family Medical History: No Reported History General Exam Limitations: no limitations General appearance: alert, in no apparent distress Head exam: Present: atraumatic, normocephalic Eye exam: Present: normal appearance, PERRL ENT exam: Present: normal exam Neck exam: Present: normal inspection. Absent: tenderness, meningismus Respiratory exam: Present: normal lung sounds bilaterally. Absent: respiratory distress, wheezes, rales, rhonchi, decreased breath sounds Cardiovascular Exam: Present: regular rate, normal rhythm GI/Abdominal exam: Present: soft. Absent: distended, tenderness, guarding Extremities exam: Present: normal inspection, normal capillary refill. Absent: pedal edema Neurological exam: Present: alert, oriented X3 Psychiatric exam: Present: normal affect, normal mood Skin exam: Present: warm, dry, intact. Absent: cyanosis, diaphoretic Course Vital Signs 02/19/24 02/19/24 13:06 14:05 Temperature 98.2 F Pulse Rate 53 L 46 L Respiratory 18 18 Rate Blood Pressure 166/86 148/90 O2 Sat by Pulse 100 99 Oximetry Medical Decision Making - Medical Decision Making Was pt. sent in by a medical professional or institution (, PA, PORCELAIN ENAMELING SUPERVISOR, urgent care, hospital, or retirement...) When possible be specific @ -No Did you speak to anyone other than the patient for history (EMS, parent, family, police, friend...)? What history was obtained from this source @ -No Did you review nursing and triage notes (agree or disagree)? Why? @ -I reviewed and agree with nursing and triage notes Were old charts reviewed (outside hosp., previous admission, EMS record, old EKG, old radiological studies, urgent care reports/EKG's, retirement records)? Report findings @ -No old charts were reviewed Differential Chest Pain: Stable Angina, Unstable Angina, STEMI, NSTEMI Aortic Dissection, Pneumothorax, Musculoskeletal, Esophageal Spasm GERD, Cholecystitis, Pancreatitis, Zoster, this is not meant to be an all-inclusive list. EKG interpreted by me (3pts min.). @Sinus bradycardia rate of 44, ND interval 135, QRS duration 103, QTc 400 X-rays interpreted by me (1pt min.). @Chest x-ray negative for acute cardiopulmonary findings. CT interpreted by me (1pt min.). @CT angiography showing pulmonary embolism without right heart strain U/S interpreted by me (1pt. min.). @ -None done What testing was considered but not performed or refused? (CT, X-rays, U/S, labs)? Why? @ -None What meds were considered but not given or refused? Why? @ -None Did you discuss the management of the patient with other professionals (professionals i.e. , PA, PORCELAIN ENAMELING SUPERVISOR, lab, RT, psych nurse, social welfare administrator, oracle application architect, teacher, textile technical officer, director of casework department)? Give summary @ -[Case discussed with Dr. Viveros who will admit Was smoking cessation discussed for >3mins.? @ -No Was critical care preformed (if so, how long)? @ -Yes, 35 minutes Were there social determinants of health that impacted care today? How? (Homelessness, low income, unemployed, alcoholism, drug addiction, transportation, low edu. Level, literacy, decrease access to med. care, long term, rehab)? @ -No Was there de-escalation of care discussed even if they declined (Discuss DNR or withdrawal of care, Hospice)? DNR status @ -No What co-morbidities impacted this encounter? (DM, HTN, Smoking, COPD, CAD, Cancer, CVA, ARF, Chemo, Hep., AIDS, mental health diagnosis, sleep apnea, morbid obesity)? @ -None Was patient admitted / discharged? Hospital course, mention meds given and route, prescriptions, significant lab abnormalities, going to OR and other pertinent info. @ -4-year-old female with exertional chest pain and dyspnea. Recent history of coronavirus.5 patient is in sinus bradycardia blood pressure stable. No need for supplemental oxygen. Workup including CBC, CMP, D-dimer, troponin results and mildly elevated D-dimer at 0.86. CT angiography is obtained which is positive for pulmonary embolism without right heart strain. Patient placed on high-dose heparin, echo has been ordered. She will be admitted for acute pulmonary embolism. Undiagnosed new problem with uncertain prognosis? @ -No Drug Therapy requiring intensive monitoring for toxicity (Heparin, Nitro, Insulin, Cardizem)? @ -No Were any procedures done? @ -No Diagnosis/symptom? @Pulmonary embolism Acute, or Chronic, or Acute on Chronic? @ -Acute Uncomplicated (without systemic symptoms) or Complicated (systemic symptoms)? @ -Default Side effects of treatment? @ -No Exacerbation, Progression, or Severe Exacerbation? @ -No Poses a threat to life or bodily function? How? (Chest pain, [place], [place], pneumonia, PE, COPD, DKA, ARF, appy, cholecystitis, CVA, Diverticulitis, Homicidal, Suicidal, threat to staff... and all critical care pts) @Yes, pulmonary embolism - Lab Data Result diagrams: 02/19/24 13:44 02/19/24 13:44 Lab Results 02/19/24 02/19/24 02/19/24 Range/Units 13:44 13:44 13:44 WBC 11.6 H (3.8-10.6) k/uL RBC 4.72 (3.80-5.40) m/uL Hgb 13.5 (11.4-16.0) gm/dL Hct 42.1 (34.0-46.0) % MCV 89.2 (80.0-100.0) fL MCH 28.6 (25.0-35.0) pg MCHC 32.0 (31.0-37.0) g/dL RDW 12.6 (11.5-15.5) % Plt Count 311 (150-450) k/uL MPV 8.0 Neutrophils % 79 % Lymphocytes % 15 % Monocytes % 5 % Eosinophils % 1 % Basophils % 0 % Neutrophils # 9.1 H (1.3-7.7) k/uL Lymphocytes # 1.7 (1.0-4.8) k/uL Monocytes # 0.6 (0-1.0) k/uL Eosinophils # 0.1 (0-0.7) k/uL Basophils # 0.0 (0-0.2) k/uL PT 11.1 (10.0-12.5) sec INR 1.0 (<1.2) APTT 23.1 (22.0-30.0) sec D-Dimer 0.86 H (<0.60) mg/L FEU Sodium 138 (137-145) mmol/L Potassium 4.1 (3.5-5.1) mmol/L Chloride 103 (98-107) mmol/L Carbon Dioxide 29 (22-30) mmol/L Anion Gap 6 mmol/L BUN 21 H (7-17) mg/dL Creatinine 0.72 (0.52-1.04) mg/dL Est GFR (CKD-EPI)AfAm >90 (>60 ml/min/1.73 sqM) Est GFR (CKD-EPI)NonAf 89 (>60 ml/min/1.73 sqM) Glucose 125 H (74-99) mg/dL Calcium 9.3 (8.4-10.2) mg/dL Magnesium 2.5 H (1.6-2.3) mg/dL Total Bilirubin 0.6 (0.2-1.3) mg/dL AST 14 (14-36) U/L ALT 12 (4-34) U/L Alkaline Phosphatase 69 (38-126) U/L Troponin I (0.000-0.034) ng/mL Total Protein 7.3 (6.3-8.2) g/dL Albumin 4.4 (3.5-5.0) g/dL 02/18/ Range/Units 13:44 WBC (3.8-10.6) k/uL RBC (3.80-5.40) m/uL Hgb (11.4-16.0) gm/dL Hct (34.0-46.0) % MCV (80.0-100.0) fL MCH (25.0-35.0) pg MCHC (31.0-37.0) g/dL RDW (11.5-15.5) % Plt Count (150-450) k/uL MPV Neutrophils % % Lymphocytes % % Monocytes % % Eosinophils % % Basophils % % Neutrophils # (1.3-7.7) k/uL Lymphocytes # (1.0-4.8) k/uL Monocytes # (0-1.0) k/uL Eosinophils # (0-0.7) k/uL Basophils # (0-0.2) k/uL PT (10.0-12.5) sec INR (<1.2) APTT (22.0-30.0) sec D-Dimer (<0.60) mg/L FEU Sodium (137-145) mmol/L Potassium (3.5-5.1) mmol/L Chloride (98-107) mmol/L Carbon Dioxide (22-30) mmol/L Anion Gap mmol/L BUN (7-17) mg/dL Creatinine (0.52-1.04) mg/dL Est GFR (CKD-EPI)AfAm (>60 ml/min/1.73 sqM) Est GFR (CKD-EPI)NonAf (>60 ml/min/1.73 sqM) Glucose (74-99) mg/dL Calcium (8.4-10.2) mg/dL Magnesium (1.6-2.3) mg/dL Total Bilirubin (0.2-1.3) mg/dL AST (14-36) U/L ALT (4-34) U/L Alkaline Phosphatase (38-126) U/L Troponin I <0.012 (0.000-0.034) ng/mL Total Protein (6.3-8.2) g/dL Albumin (3.5-5.0) g/dL Critical Care Time Critical Care Time: Yes Total Critical Care Time: 35 Disposition Clinical Impression: Pulmonary embolism Disposition: ADMITTED IP TO THIS [facility] Condition: Stable Is patient prescribed a controlled substance at d/c from ED?: No Referrals: Ana Viveros MD [Primary Care Provider] - 1-2 days Time of Disposition: 15:11
[2024-02-19 13:53] LABS: Basophils % (A) 0 %; Eosinophils # (A) 0.1 k/uL (0-0.7); Eosinophils % (A) 1 %; HCT 42.1 % (34.0-46.0); HGB 13.5 gm/dL (11.4-16.0); Lymphocytes # (A) 1.7 k/uL (1.0-4.8); Lymphocytes % (A) 15 %; MCH 28.6 pg (25.0-35.0); MCV 89.2 fL (80.0-100.0); Monocytes # (A) 0.6 k/uL (0-1.0); Monocytes % (A) 5 %; Neutrophils # (A) 9.1 k/uL (1.3-7.7); Neutrophils % (A) 79 %; Platelet Count 311 k/uL (150-450); RBC 4.72 m/uL (3.80-5.40); RDW 12.6 % (11.5-15.5); WBC 11.6 k/uL (3.8-10.6)
[2024-02-19 14:07] LABS: Partial Thromboplastin Time 23.1 sec (22.0-30.0); Prothrombin Time 11.1 sec (10.0-12.5)
[2024-02-19 14:20] LABS: Anion Gap 6 mmol/L; Blood Urea Nitrogen 21 mg/dL (7-17); Carbon Dioxide 29 mmol/L (22-30); Chloride 103 mmol/L (98-107); Glucose 125 mg/dL (74-99); Potassium 4.1 mmol/L (3.5-5.1); Sodium 138 mmol/L (137-145)
[2024-02-19 14:21] LABS: ALT 12 U/L (4-34); AST 14 U/L (14-36); African American GFR (CKD) >90 (>60 ml/min/1.73 sqM); Albumin 4.4 g/dL (3.5-5.0); Alkaline Phosphatase 69 U/L (38-126); Calcium 9.3 mg/dL (8.4-10.2); Magnesium 2.5 mg/dL (1.6-2.3); Non-African American GFR(CKD) 89 (>60 ml/min/1.73 sqM); Total Bilirubin 0.6 mg/dL (0.2-1.3); Total Protein 7.3 g/dL (6.3-8.2)
[2024-02-19] MEDS ORDERED: HEPARIN SODIUM 1,000 UN/ML (10ML VL) IV PRN (14:54)
--- NOTE | 2024-02-19 14:56 | CT ---
EXAMINATION TYPE: CT angio chest DATE OF EXAM: 02/19/2024 2:42 PM COMPARISON: 09/15/2014 CLINICAL INDICATION: Female, 63 years old with history of Yasmeen/Pos dimer; Positive dimer, covid positi ve TECHNIQUE/CONTRAST: CTA scan of the thorax is performed with IV Contrast, patient injected with 60 mL of Isovue 300, MIP images are created and reviewed these are created on a separate workstation.. CT DLP: 341.4 mGycm, Automated exposure control for dose reduction was used. FINDINGS: Lungs/Pleura: No evidence of focal consolidation, pleural effusion or pneumothorax. Airway: Large airways are patent. Heart: Heart is within normal limits for size. Vasculature: Scattered filling defects within the pulmonary arterial vasculature on the right which a re nonocclusive. No evidence for right heart strain. The pulmonary trunk is within normal limits. Med iastinum: No gross evidence of adenopathy. Small hiatal hernia. Musculoskeletal: No acute osseous abnormalities Soft Tissues/lymph nodes: Unremarkable. Lower neck: Left thyroid nodules with enlarged gland measuring up to 29 mm. Upper Abdomen: No significant findings. IMPRESSION: 1. Multiple pulmonary emboli with nonocclusive filling defects within the pulmonary arterial vasculat ure on the right. 2. Small hiatal hernia. Findings communicated to Dr. Antonio Ayala MD on 02/19/2024 2:[address] Antonio Bustillos. [facility], , 02/19/2024 2:53 PM
[2024-02-19] MEDS: HEPARIN SODIUM 1,000 UN/ML (10ML VL) IV ONE (15:07)
--- NOTE | 2024-02-19 15:07 | XR ---
EXAMINATION TYPE: XR chest 2V DATE OF EXAM: 02/19/2024 COMPARISON: 02/01/2023 CLINICAL INDICATION: Female, 63 years old with history of Chest Pain; , TECHNIQUE: XR chest 2V views of the chest. FINDINGS: The lungs are clear and there is no pneumothorax, pleural effusion, or focal pneumonia. Mild cardiom egaly but no overt failure. Osseous structures demonstrate hypertrophic and degenerative changes of t he spine. Apical pleural thickening. IMPRESSION: 1. Mild cardiomegaly [facility], , 02/19/2024 3:04 PM
[2024-02-19] MEDS ORDERED: NALOXONE 0.4 MG/ML 1 ML VIAL IV PRN (15:08)
[2024-02-19] MEDS: HEPARIN SOD,PORK IN 0.45% NACL 25,000 UNIT in 0.45% NACL 1 250ML.BAG IV SCH (15:08)
[2024-02-19] MEDS ORDERED: ALBUTEROL NEBULIZED 2.5 MG/3 ML INHALATION PRN (16:23)
[2024-02-19] MEDS ORDERED: ALPRAZolam 0.25 MG TAB PO PRN (16:23)
[2024-02-19] MEDS ORDERED: HYDROcodone/APAP 10-325MG 1 EACH TAB PO PRN (16:23)
[2024-02-19] MEDS ORDERED: ALBUTEROL HFA INHALER INHALATION PRN (16:23)
[2024-02-19] MEDS: DICYCLOMINE 20 MG TAB PO SCH (17:13)
[2024-02-19] MEDS: PANTOPRAZOLE 40 MG TABLET PO SCH (17:13)
[2024-02-19] MEDS: LORATADINE 10 MG TAB PO SCH (20:58)
[2024-02-19] MEDS: MONTELUKAST 10 MG TAB PO SCH (20:58)
[2024-02-19] MEDS: EZETIMIBE 10 MG TAB PO SCH (20:59)
[2024-02-20 07:07] LABS: Basophils % (A) 0 %; Eosinophils % (A) 0 %; HCT 41.5 % (34.0-46.0); HGB 12.9 gm/dL (11.4-16.0); Hypochromasia Slight; Lymphocytes # (A) 1.9 k/uL (1.0-4.8); Lymphocytes % (A) 18 %; MCH 28.1 pg (25.0-35.0); MCHC 31.1 g/dL (31.0-37.0); MCV 90.4 fL (80.0-100.0); Mean Platelet Volume 8.2; Monocytes # (A) 0.9 k/uL (0-1.0); Monocytes % (A) 8 %; Neutrophils # (A) 7.6 k/uL (1.3-7.7); Neutrophils % (A) 72 %; Platelet Count 295 k/uL (150-450); RBC 4.59 m/uL (3.80-5.40); RDW 12.7 % (11.5-15.5); WBC 10.6 k/uL (3.8-10.6)
[2024-02-20] MEDS: ALBUTEROL HFA INHALER INHALATION PRN (08:36)
--- NOTE | 2024-02-20 09:30 | P.HPIM ---
History of Present Illness H&P Date: 02/19/24 Sara Sam, is a 63-year-old female patient who presented to the ER with concerns of upper chest tightness with exertion. Patient was diagnosed with COVID-19 1 week ago and had a cough at that time. Patient has a past medical history of asthma, GERD, thyroid disorder, chronic back pain. CTA was performed in ER showing multiple pulmonary emboli with nonocclusive filling defects within the pulmonary arterial vasculature of the on the right. Small hiatal hernia. EKG completed showing sinus bradycardia. Patient was started on IV heparin drip per protocol. Lab work revealing white blood cell 11.6, creatinine 0.72 bun 21 troponin negative. Vital signs temp 98.0, heart rate 51, respiratory rate 18, blood pressure 144/74 with a pulse ox of 100% on room air. Cardiology services have been consulted. 2D echo has been ordered. Review of Systems Please refer to HPI otherwise unremarkable Past Medical History Past Medical History: Asthma, GERD/Reflux, Thyroid Disorder Additional Past Medical History / Comment(s): Lower back pain and right leg cramping when driving. History of Any Multi-Drug Resistant Organisms: None Reported Past Surgical History: Bladder Surgery, Breast Surgery, Hysterectomy Additional Past Surgical History / Comment(s): THYROIDECTOMY. Past Anesthesia/Blood Transfusion Reactions: No Reported Reaction Past Psychological History: No Psychological Hx Reported Smoking Status: Never smoker Past Alcohol Use History: None Reported Past Drug Use History: None Reported - Past Family History Mother Family Medical History: No Reported History Father Family Medical History: No Reported History Medications and Allergies Home Medications Medication Instructions Recorded Confirmed Type ALPRAZolam [Xanax] 0.25 mg PO Q12H PRN 04/14/16 02/19/24 History HYDROcodone/APAP 10-325MG [[place] 1 tab PO TID PRN 04/14/16 02/19/24 History 10-325] Montelukast [Singulair] 10 mg PO HS 04/14/16 02/19/24 History Albuterol Nebulized [Ventolin 2.5 mg INHALATION RT-QID PRN 02/19/24 02/19/24 History Nebulized] Albuterol Sulfate [Proair Hfa] 2 puff INHALATION RT-Q4H PRN 02/19/24 02/19/24 History Cetirizine HCl [Zyrtec] 10 mg PO HS 02/19/24 02/19/24 History Dicyclomine [Bentyl] 20 mg PO QID 02/19/24 02/19/24 History Ezetimibe [Zetia] 10 mg PO HS 02/19/24 02/19/24 History Pantoprazole [Protonix] 40 mg PO BID 02/19/24 02/19/24 History Allergies Allergy/AdvReac Type Severity Reaction Status Date / Time Penicillins Allergy Rash/Hives Verified 02/19/24 14:16 Sulfa (Sulfonamide Allergy Rash/Hives Verified 02/19/24 14:16 Antibiotics) Physical Exam Vitals: Vital Signs Temp Pulse Resp BP Pulse Ox 02/19/24 15:11 45 L 18 163/85 100 02/19/24 14:05 46 L 18 148/90 99 02/19/24 13:06 98.2 F 53 L 18 166/86 100 Intake and Output 02/19/24 02/19/24 02/19/24 06:59 14:59 22:59 Other: Weight 99.79 kg Head normocephalic Neck supple Lungs clear to auscultation bilaterally no wheezing or crackles Heart regular rate and rhythm S1-S2, no rub or gallop Abdomen is soft nontender nondistended positive bowel sounds no hepatosplenomegaly Extremities no edema Neuro alert and orientated to 3 Results CBC & Chem 7: 02/20/24 05:47 02/19/24 13:44 Labs: Abnormal Lab Results - Last 24 Hours (Table) 02/19/24 02/19/24 02/19/24 Range/Units 13:44 13:44 13:44 WBC 11.6 H (3.8-10.6) k/uL Neutrophils # 9.1 H (1.3-7.7) k/uL D-Dimer 0.86 H (<0.60) mg/L FEU BUN 21 H (7-17) mg/dL Glucose 125 H (74-99) mg/dL Magnesium 2.5 H (1.6-2.3) mg/dL Assessment and Plan Assessment: 1. Shortness of breath secondary to pulmonary embolism 2. History of COVID 1 week ago 3. History of asthma 4. History of GERD 5. History of hypothyroidism 6. History of chronic back pain 7. Bradycardia Patient has been started on IV heparin Cardiology services consulted Repeat labs ordered 2D echocardiogram ordered Time with Patient: Greater than 30 (Greater than 60% of the total time spent in counseling and coordination of care)
--- NOTE | 2024-02-20 09:32 | P.PN ---
Subjective Progress Note Date: 02/20/24 Sara Sam, is a 63-year-old female patient who presented to the ER with concerns of upper chest tightness with exertion. Patient was diagnosed with COVID-19 1 week ago and had a cough at that time. Patient has a past medical history of asthma, GERD, thyroid disorder, chronic back pain. CTA was performed in ER showing multiple pulmonary emboli with nonocclusive filling defects within the pulmonary arterial vasculature of the on the right. Small hiatal hernia. EKG completed showing sinus bradycardia. Patient was started on IV heparin drip per protocol. Lab work revealing white blood cell 11.6, creatinine 0.72 bun 21 troponin negative. Vital signs temp 98.0, heart rate 51, respiratory rate 18, blood pressure 144/74 with a pulse ox of 100% on room air. Cardiology services have been consulted. 2D echo has been ordered. On 02/20/2024 patient is resting comfortably in bed. Patient reports improvement with shortness of breath. Awaiting cardiology input patient remains on IV heparin. At this time patient denies chest pain or shortness of breath. Patient denies nausea vomiting or diarrhea. Patient denies any urinary burning or frequency. Current vital signs temp 98.0, heart rate 51, respiratory rate 18, blood pressure 144/74 with pulse ox 100% on room air Dr. Rojas's group will be covering from 02/21/2024 to February 28, 2023 Objective - Vital Signs Vital signs: Vital Signs Temp 98.0 F 02/20/24 09:02 Pulse 51 L 02/20/24 09:02 Resp 18 02/20/24 09:02 BP 144/74 02/20/24 09:02 Pulse Ox 100 02/20/24 09:02 FiO2 Intake & Output 02/19/24 02/20/24 02/20/24 18:59 06:59 18:59 Intake Total 229.969 Balance 229.969 Weight 99.79 kg 95.2 kg Intake: Intake, IV Titration 229.969 Amount Heparin Sod,Pork in 0.45% 229.969 NaCl 25,000 unit In 0.45 % NaCl 1 250ml.bag @ 18 UNITS/KG/HR 17.962 mls/hr IV .[id number] [facility] Rx#: [id number] Other: Voiding Method Toilet Toilet # Voids 1 # Bowel Movements 1 - Exam Head normocephalic Neck supple Lungs clear to auscultation bilaterally no wheezing or crackles Heart regular rate and rhythm S1-S2, no rub or gallop Abdomen is soft nontender nondistended positive bowel sounds no hepatosplenomegaly Extremities no edema Neuro alert and orientated to 3 - Labs CBC & Chem 7: 02/20/24 05:47 02/19/24 13:44 Labs: Abnormal Lab Results - Last 24 Hours (Table) 02/19/24 02/19/24 02/19/24 Range/Units 13:44 13:44 13:44 WBC 11.6 H (3.8-10.6) k/uL Neutrophils # 9.1 H (1.3-7.7) k/uL APTT (22.0-30.0) sec D-Dimer 0.86 H (<0.60) mg/L FEU BUN 21 H (7-17) mg/dL Glucose 125 H (74-99) mg/dL Magnesium 2.5 H (1.6-2.3) mg/dL 02/19/24 02/20/24 Range/Units 20:22 05:47 WBC (3.8-10.6) k/uL Neutrophils # (1.3-7.7) k/uL APTT 128.3 H* 68.3 H (22.0-30.0) sec D-Dimer (<0.60) mg/L FEU BUN (7-17) mg/dL Glucose (74-99) mg/dL Magnesium (1.6-2.3) mg/dL Assessment and Plan Assessment: 1. Shortness of breath secondary to pulmonary embolism 2. History of COVID 1 week ago 3. History of asthma 4. History of GERD 5. History of hypothyroidism 6. History of chronic back pain 7. Bradycardia Patient has been started on IV heparin Cardiology services consulted Repeat labs ordered 2D echocardiogram ordered
[2024-02-20] MEDS: ACETAMINOPHEN TAB 325 MG TAB PO PRN (12:00)
--- NOTE | 2024-02-20 13:54 | CA ---
Transthoracic Echo Report Name: Sara Sam Age: 63 Gender: F : 1960 Exam Date: 02/20/2024 07:56 Exam Location: [facility] Ht (in): 67 Wt (lb): 220 Ordering Physician: Antonio Ayala MD Attending/Referring Phys: [id number], Jamie [employer] Ryanne Thomas RDCS Procedure CPT: Indications: PE Cardiac Hx: Technical Quality: Fair Contrast 1: Total Dose (mL): Contrast 2: Total Dose (mL): MEASUREMENTS (Male / Female) Normal Values 2D ECHO LV Diastolic Diameter PLAX 4.8 cm 4.2 - 5.9 / 3.9 - 5.3 cm LV Systolic Diameter PLAX 2.7 cm IVS Diastolic Thickness 1.2 cm 0.6 - 1.0 / 0.6 - 0.9 cm LVPW Diastolic Thickness 1.1 cm 0.6 - 1.0 / 0.6 - 0.9 cm LV Relative Wall Thickness 0.5 RV Internal Dim ED PLAX 3.0 cm LVOT Diameter 2.1 cm LA Systolic Diameter LX 3.6 cm 3.0 - 4.0 / 2.7 - 3.8 cm LV Diastolic Volume MOD 4C 122.0 cm??? LV Systolic Volume MOD 4C 57.9 cm??? LV Ejection Fraction MOD 4C 52.6 % LV Cardiac Index MOD 4C 1509.3 cm???/min???m??? LV Diastolic Length 4C 9.1 cm LV Systolic Length 4C 7.5 cm LV Diastolic Volume MOD 2C 117.0 cm??? LV Systolic Volume MOD 2C 53.4 cm??? LV Ejection Fraction MOD 2C 54.4 % LV Cardiac Index MOD 2C 1496.2 cm???/min???m??? LV Diastolic Length 2C 8.4 cm LV Systolic Length 2C 6.5 cm LA Volume 61.9 cm??? 18 - 58 / 22 - 52 cm??? LA Volume Index 28.0 cm???/m??? 16 - 28 cm???/m??? M-MODE Aortic Root Diameter MM 3.2 cm AV Cusp Separation MM 2.0 cm DOPPLER AV Peak Velocity 192.6 cm/s AV Peak Gradient 14.8 mmHg AV Mean Velocity 117.8 cm/s AV Mean Gradient 6.6 mmHg AV Velocity Time Integral 42.4 cm LVOT Peak Velocity 168.9 cm/s LVOT Peak Gradient 11.4 mmHg LVOT Velocity Time Integral 31.9 cm LVOT Stroke Volume 111.6 cm??? LVOT Stroke Volume Index 53.0 ml/m??? LVOT Cardiac Index 2625.1 cm???/min???m??? AV Area Cont Eq vti 2.6 cm??? AV Area Cont Eq pk 3.1 cm??? MV Area PHT 3.4 cm??? Mitral E Point Velocity 92.8 cm/s Mitral A Point Velocity 78.8 cm/s Mitral E to A Ratio 1.2 MV Deceleration Time 226.3 ms TR Peak Velocity 238.6 cm/s TR Peak Gradient 22.8 mmHg Right Ventricular Systolic Press 36.5 mmHg FINDINGS Left Ventricle Left ventricular ejection fraction is estimated at 55-60 %. Left ventricular cavity size normal. Mildly increased septal wall thickness. Mildly increased posterior wall thickness. Right Ventricle Normal right ventricular size and function. Mild pulmonary hypertension. Right Atrium Normal right atrial size. No right atrial thrombus or mass seen. Left Atrium Mildly increased left atrial volume. Mildly increased left atrial area. No left atrial thrombus or mass present. Mitral Valve Structurally normal mitral valve. Trace to mild mitral regurgitation. Aortic Valve Trileaflet aortic valve. No aortic valve stenosis or regurgitation. Thickened aortic valve without stenosis. Tricuspid Valve Structurally normal tricuspid valve. Mild tricuspid regurgitation. Pulmonic Valve Structurally normal pulmonic valve. Trace pulmonic regurgitation. Pericardium No pericardial or pleural effusion. Aorta Normal size aortic root and proximal ascending aorta. CONCLUSIONS LVH with preserved systolic function Thickened aortic valve leaflets without any significant stenosis Previewed by: Dr. Deepak Gordon MD (Electronically Signed) Final Date: 20 February 2024 13:53
[2024-02-20] MEDS: Apixaban Initiation Dose--VTE 5 MG TAB PO SCH (16:33)
--- NOTE | 2024-02-20 22:05 | P.CRDCN ---
History of Present Illness Consult date: 02/20/24 History of present illness: HISTORY OF PRESENTING ILLNESS 63-year-old -[place] female presented to the hospital because of upper chest tightness and dyspnea on exertion. She was diagnosed with COVID-19 1 week ago and has been having increased cough and shortness of breath. She does have prior history of hypothyroidism, asthma and GERD. On admission her tropes were not elevated, D-dimer elevated 0.86, hemoglobin 13.5, platelet 311 REVIEW OF SYSTEMS 14 point review of system is negative except what is mentioned above in HPI. PHYSICAL EXAMINATION Vital signs reviewed. Head: Normocephalic. Eyes: Sclerae nonicteric. Neck: Brisk carotid upstroke, no jugular venous distention. Lungs: Clear to auscultation. Heart: Regular rate and rhythm, S1-S2, no S3, no murmur or rub. Abdomen: Soft nontender, positive bowel sounds. Extremities: No edema, intact distal pulses. Neuro: Alert, oritented, no focal deficits. Detailed neuro exam was not performed. ASSESSMENT Acute PE Small pulmonary emboli with nonocclusive filling defect Immobility due to ankle pain Recent COVID-19 infection Small hiatal hernia Echo EF 55 to 60%, mild LVH, mild aortic valve sclerosis, no significant RV dilatation, mild pulmonary hypertension, RVSP 37 mmHg PLAN Discontinue IV heparin drip Start Eliquis DVT dosing, 10 mg twice daily for 1 week, 5 mg twice daily thereafter. Obtain Doppler bilateral lower extremity Obtain NTproBNP, lipids, Hba1c, TSH levels I would recommend long-term anticoagulation as I do not feel that this is a provoked PE however there could be some relationship to the recent COVID-19 infection. At this time patient is cleared from cardiovascular standpoint. I would recommend outpatient follow-up with cardiology office for further workup. Orlando Bentley MD, FACC, RPVI Thank you for allowing [facility] to participate in t his patient's care. Feel free to reach out in case of any followup questions. Past Medical History Past Medical History: Asthma, GERD/Reflux, Thyroid Disorder Additional Past Medical History / Comment(s): Lower back pain and right leg cramping when driving. History of Any Multi-Drug Resistant Organisms: None Reported Past Surgical History: Bladder Surgery, Breast Surgery, Hysterectomy Additional Past Surgical History / Comment(s): THYROIDECTOMY. Past Anesthesia/Blood Transfusion Reactions: No Reported Reaction Past Psychological History: No Psychological Hx Reported Smoking Status: Never smoker Past Alcohol Use History: None Reported Past Drug Use History: None Reported - Past Family History Mother Family Medical History: No Reported History Father Family Medical History: No Reported History Medications and Allergies Home Medications Medication Instructions Recorded Confirmed Type ALPRAZolam [Xanax] 0.25 mg PO Q12H PRN 04/14/16 02/19/24 History HYDROcodone/APAP 10-325MG [[place] 1 tab PO TID PRN 04/14/16 02/19/24 History 10-325] Montelukast [Singulair] 10 mg PO HS 04/14/16 02/19/24 History Albuterol Nebulized [Ventolin 2.5 mg INHALATION RT-QID PRN 02/19/24 02/19/24 His tory Nebulized] Albuterol Sulfate [Proair Hfa] 2 puff INHALATION RT-Q4H PRN 02/19/24 02/19/24 History Cetirizine HCl [Zyrtec] 10 mg PO HS 02/19/24 02/19/24 History Dicyclomine [Bentyl] 20 mg PO QID 02/19/24 02/19/24 History Ezetimibe [Zetia] 10 mg PO HS 02/19/24 02/19/24 History Pantoprazole [Protonix] 40 mg PO BID 02/19/24 02/19/24 History Allergies Allergy/AdvReac Type Severity Reaction Status Date / Time Penicillins Allergy Rash/Hives Verified 02/19/24 14:16 Sulfa (Sulfonamide Allergy Rash/Hives Verified 02/19/24 14:16 Antibiotics) Physical Exam Vitals: Vital Signs Temp Pulse Resp BP Pulse Ox 02/20/24 21:01 98.7 F 49 L 18 126/65 98 02/20/24 16:17 98.0 F 50 L 18 134/67 100 02/20/24 11:56 99.2 F 50 L 18 147/68 99 02/20/24 09:02 98.0 F 51 L 18 144/74 100 02/20/24 02:56 97.9 F 49 L 16 165/81 99 02/20/24 02:32 53 L 02/20/24 00:00 98.3 F 53 L 16 142/68 99 Intake and Output 02/20/24 02/20/24 02/20/24 06:59 14:59 22:59 Intake Total 104.534 189.607 Balance 104.534 189.607 Intake: Intake, IV Titration 104.534 189.607 Amount Heparin Sod,Pork in 0.45% 104.534 189.607 NaCl 25,000 unit In 0.45 % NaCl 1 250ml.bag @ 18 UNITS/KG/HR 17.962 mls/hr IV .[id number] [facility] Rx#: [id number] Other: Voiding Method Toilet Toilet # Voids 1 1 # Bowel Movements 1 1 Weight 95.2 kg Results 02/20/24 05:47 02/19/24 13:44 Coagulation 02/20/24 Range/Units 05:47 APTT 68.3 H (22.0-30.0) sec CBC 02/20/24 Range/Units 05:47 WBC 10.6 (3.8-10.6) k/uL RBC 4.59 (3.80-5.40) m/uL Hgb 12.9 (11.4-16.0) gm/dL Hct 41.5 (34.0-46.0) % Plt Count 295 (150-450) k/uL Current Medications Generic Name Dose Route Start Last Admin Trade Name Freq PRN Reason Stop Dose Admin Acetaminophen 650 mg 02/19/24 15:08 02/20/24 12:00 Acetaminophen Tab 325 Mg Tab PO 650 mg Q6HR PRN Administration Mild Pain or Fever > 100.5 Hydrocodone Bitart/Acetaminophen 1 each 02/19/24 16:23 Hydrocodone/Apap 10-325mg 1 Each Tab PO TID PRN Pain Albuterol Sulfate 2 puff 02/19/24 20:05 02/20/24 15:37 Albuterol Hfa Inhaler INHALATION 2 puff RT-QID PRN Administration Shortness Of Breath Alprazolam 0.25 mg 02/19/24 16:23 Alprazolam 0.25 Mg Tab PO Q12H PRN Anxiety Apixaban 10 mg 02/20/24 16:30 02/20/24 16:33 Apixaban Initiation Dose--Vte 5 Mg Tab PO 01/23/25 16:29 10 mg BID DANIEL Administration Taper Dicyclomine HCl 20 mg 02/19/24 18:00 02/20/24 21:01 Dicyclomine 20 Mg Tab PO 20 mg QID DANIEL Administration Ezetimibe 10 mg 02/19/24 21:00 02/20/24 19:06 Ezetimibe 10 Mg Tab PO 10 mg HS DANIEL Administration Loratadine 10 mg 02/19/24 21:00 02/20/24 19:06 Loratadine 10 Mg Tab PO 10 mg HS DANIEL Administration Montelukast Sodium 10 mg 02/19/24 21:00 02/20/24 19:06 Montelukast 10 Mg Tab PO 10 mg HS DANIEL Administration Naloxone HCl 0.2 mg 02/19/24 15:08 Naloxone 0.4 Mg/Ml 1 Ml Vial IV Q2M PRN Opioid Reversal Pantoprazole Sodium 40 mg 02/19/24 17:30 02/20/24 16:33 Pantoprazole 40 Mg Tablet PO 40 mg AC-BID DANIEL Administration Intake and Output 02/20/24 02/20/24 02/20/24 06:59 14:59 22:59 Intake Total 104.534 189.607 Balance 104.534 189.607 Intake: Intake, IV Titration 104.534 189.607 Amount Heparin Sod,Pork in 0.45% 104.534 189.607 NaCl 25,000 unit In 0.45 % NaCl 1 250ml.bag @ 18 UNITS/KG/HR 17.962 mls/hr IV .[id number] [facility] Rx#: [id number] Other: Voiding Method Toilet Toilet # Voids 1 1 # Bowel Movements 1 1 Weight 95.2 kg 02/20/24 05:47 02/19/24 13:44
[2024-02-20 23:13] LABS: Magnesium 2.4 mg/dL (1.6-2.3)
[2024-02-20 23:23] LABS: NT-Pro-B-Type Natriuretic Pept 90 pg/mL
[2024-02-21 04:49] VITALS: RESP 16; TEMP 98.6
[2024-02-21] MEDS: CALCIUM CARBONATE 500 MG CHEWABLE PO PRN (06:51)
[2024-02-21 07:50] LABS: Basophils % (A) 0 %; Eosinophils # (A) 0.1 k/uL (0-0.7); Eosinophils % (A) 1 %; HCT 43.4 % (34.0-46.0); HGB 13.3 gm/dL (11.4-16.0); Hypochromasia Moderate; Lymphocytes # (A) 2.9 k/uL (1.0-4.8); Lymphocytes % (A) 21 %; MCHC 30.6 g/dL (31.0-37.0); MCV 91.5 fL (80.0-100.0); Mean Platelet Volume 7.9; Monocytes # (A) 0.7 k/uL (0-1.0); Monocytes % (A) 5 %; Neutrophils # (A) 9.9 k/uL (1.3-7.7); Neutrophils % (A) 72 %; Platelet Count 262 k/uL (150-450); RBC 4.74 m/uL (3.80-5.40); RDW 12.7 % (11.5-15.5); WBC 13.7 k/uL (3.8-10.6)
[2024-02-21 08:15] LABS: ALT 10 U/L (4-34); AST 14 U/L (14-36); African American GFR (CKD) >90 (>60 ml/min/1.73 sqM); Albumin 3.7 g/dL (3.5-5.0); Alkaline Phosphatase 57 U/L (38-126); Anion Gap 9 mmol/L; Blood Urea Nitrogen 15 mg/dL (7-17); Calcium 8.6 mg/dL (8.4-10.2); Carbon Dioxide 24 mmol/L (22-30); Chloride 104 mmol/L (98-107); Glucose 110 mg/dL (74-99); Non-African American GFR(CKD) 89 (>60 ml/min/1.73 sqM); Potassium 3.7 mmol/L (3.5-5.1); Sodium 137 mmol/L (137-145); Total Bilirubin 0.4 mg/dL (0.2-1.3); Total Protein 6.3 g/dL (6.3-8.2)
--- NOTE | 2024-02-21 09:03 | US ---
EXAMINATION TYPE: US venous doppler duplex LE BI DATE OF EXAM: 02/21/2024 8:27 AM COMPARISON: US 12/05/23, XR chest 02/19/24 CLINICAL INDICATION: Female, 63 years old with history of DVT; PE. Patient on thinners, Pain TECHNIQUE: The lower extremity deep venous system is examined utilizing real time linear array sonog los with graded compression, color doppler sonography, and spectral doppler. SIDE PERFORMED: Bilateral FINDINGS: VESSELS IMAGED: Common Femoral Vein Deep Femoral Vein Greater Saphenous Vein * Femoral Vein Popliteal Vein Small Saphenous Vein * Proximal Calf Veins (* superficial vessels) The deep venous systems of both lower extremities from the common femoral remains to the proximal charles f veins are patent and compressible with augmentable flow and with normal waveforms. IMPRESSION: No evidence of bilateral lower extremity DVT from the common femoral veins to the proximal calf veins [facility], Workstation: HOA 02/21/2024 9:01 AM
[2024-02-21 09:27] LABS: Chol/HDL Ratio 5.53 Ratio; LDL Cholesterol,Calculated 140.1 mg/dL (0.0-131.0)
[2024-02-21 11:56] VITALS: BP 126/74; PULSE 55
--- NOTE | 2024-02-21 13:06 | P.DS ---
Providers Date of admission: 02/19/24 15:09 Expected date of discharge: 02/21/24 Attending physician: Ana Viveros Primary care physician: Ana Viveros [facility] Course: Discharge diagnoses; Shortness of breath secondary to pulmonary embolism Acute PE 2. History of COVID 1 week ago 3. History of asthma 4. History of GERD 5. History of hypothyroidism 6. History of chronic back pain 7. Bradycardia Hospital course; Sara Sam, is a 63-year-old female patient who presented to the ER with concerns of upper chest tightness with exertion. Patient was diagnosed with COVID-19 1 week ago and had a cough at that time. Patient has a past medical history of asthma, GERD, thyroid disorder, chronic back pain. CTA was performed in ER showing multiple pulmonary emboli with nonocclusive filling defects within the pulmonary arterial vasculature of the on the right. Small hiatal hernia. EKG completed showing sinus bradycardia. Patient was started on IV heparin drip per protocol. Lab work revealing white blood cell 11.6, creatinine 0.72 bun 21 troponin negative. Vital signs temp 98.0, heart rate 51, respiratory rate 18, blood pressure 144/74 with a pulse ox of 100% on room air. Cardiology services have been consulted. 2D echo has been ordered. On 02/20/2024 patient is resting comfortably in bed. Patient reports improvement with shortness of breath. Awaiting cardiology input patient remains on IV heparin. At this time patient denies chest pain or shortness of breath. Patient denies nausea vomiting or diarrhea. Patient denies any urinary burning or frequency. Current vital signs temp 98.0, heart rate 51, respiratory rate 18, blood pressure 144/74 with pulse ox 100% on room air 02/20. Dr. Luis took over care. Cardiology evaluated, recommended starting patient on Eliquis, patient received first 3 doses of 10 mg of Eliquis in the hospital, patient being discharged stable condition PHYSICAL EXAMINATION: GENERAL: The patient is alert and oriented x3, not in any acute distress. Well developed, well nourished. HEENT: Pupils are round and equally reacting to light. EOMI. No scleral icterus. No conjunctival pallor. Normocephalic, atraumatic. No pharyngeal erythema. No thyromegaly. CARDIOVASCULAR: S1 and S2 present. No murmurs, rubs, or gallops. PULMONARY: Chest is clear to auscultation, no wheezing or crackles. ABDOMEN: Soft, nontender, nondistended, normoactive bowel sounds. No palpable organomegaly. MUSCULOSKELETAL: No joint swelling or deformity. EXTREMITIES: No cyanosis, clubbing, or pedal edema. NEUROLOGICAL: Gross neurological examination did not reveal any focal deficits. SKIN: No rashes. Dictation was produced using [employer] dictation software. please excuse any grammatical, word or spelling errors. Patient Condition at Discharge: Stable Plan - Discharge Summary Discharge Rx Participant: Yes New Discharge Prescriptions: New Apixaban [Eliquis Starter Pack (for VTE)] 5 - 10 mg PO DIRECTED 30 Days #1 each Continue Montelukast [Singulair] 10 mg PO HS ALPRAZolam [Xanax] 0.25 mg PO Q12H PRN PRN Reason: Anxiety HYDROcodone/APAP 10-325MG [[place] 10-325] 1 tab PO TID PRN PRN Reason: Pain Cetirizine HCl [Zyrtec] 10 mg PO HS Dicyclomine [Bentyl] 20 mg PO QID Ezetimibe [Zetia] 10 mg PO HS Albuterol Sulfate [Proair Hfa] 2 puff INHALATION RT-Q4H PRN PRN Reason: Shortness Of Breath Albuterol Nebulized [Ventolin Nebulized] 2.5 mg INHALATION RT-QID PRN PRN Reason: Shortness Of Breath Pantoprazole [Protonix] 40 mg PO BID Discharge Medication List ALPRAZolam [Xanax] 0.25 mg PO Q12H PRN 04/14/16 [History] HYDROcodone/APAP 10-325MG [[place] 10-325] 1 tab PO TID PRN 04/14/16 [History] Montelukast [Singulair] 10 mg PO HS 04/14/16 [History] Albuterol Nebulized [Ventolin Nebulized] 2.5 mg INHALATION RT-QID PRN 02/19/24 [History] Albuterol Sulfate [Proair Hfa] 2 puff INHALATION RT-Q4H PRN 02/19/24 [History] Cetirizine HCl [Zyrtec] 10 mg PO HS 02/19/24 [History] Dicyclomine [Bentyl] 20 mg PO QID 02/19/24 [History] Ezetimibe [Zetia] 10 mg PO HS 02/19/24 [History] Pantoprazole [Protonix] 40 mg PO BID 02/19/24 [History] Apixaban [Eliquis Starter Pack (for VTE)] 5 - 10 mg PO DIRECTED 30 Days #1 each 02/21/24 [Rx] Follow up Appointment(s)/Referral(s): Orlando Bentley MD [Medical Doctor] - 1 Week Ana Viveros MD [Primary Care Provider] - 1-2 days (Please call to make a post hospital follow up appointment when offices are open) Patient Instructions/Handouts: Pulmonary Embolism (DC), Safe Use of Anticoagulants (DC), COVID-19 (Coronavirus Disease 2019) (DC) Discharge Disposition: HOME SELF-CARE
== END 2024-02-21 13:31 | disposition home or self-care (01) ==
LOC: EC 13:05 → 3SCARD 15:09
PROVIDERS: ADMIT Internal Medicine; ATTEND Internal Medicine
DX: I26.99 Other pulmonary embolism without acute cor pulmonale (principal); R00.1 Bradycardia, unspecified; J45.909 Unspecified asthma, uncomplicated; E03.9 Hypothyroidism, unspecified; K44.9 Diaphragmatic hernia without obstruction or gangrene; G89.29 Other chronic pain; K21.9 Gastro-esophageal reflux disease without esophagitis; M54.50 Low back pain, unspecified; Z79.899 Other long term (current) drug therapy; Z86.16 Personal history of COVID-19; Z88.0 Allergy status to penicillin; Z88.2 Allergy status to sulfonamides
CPT/HCPCS: 96366 ×3; 96365; 99291; 36415; 94640 ×4; 93005; 93306; 85379; 83880; 80061; 80053 ×2; 84443; 83735 ×2; 84484; 85025 ×3; 85610; 85730 ×3; 83036; 71046; 93970; 71275; G0378 ×3; J1644 ×3; Q9967

== ENCOUNTER 2024-02-29 09:30 | Emergency (ER) | payer MEDICAID ==
[2024-02-29 09:36] VITALS: RESP 18; TEMP 98.2
--- NOTE | 2024-02-29 10:37 | ED ---
General Adult HPI - General Chief complaint: Neck Pain/Injury Stated complaint: L sided neck pain Time Seen by Provider: 02/29/24 10:37 Source: patient, RN notes reviewed Mode of arrival: ambulatory Limitations: no limitations - History of Present Illness Initial comments: This is a 63-year-old female with a history of thyroid disorder and pulmonary embolism on Eliquis presenting to the emergency department chief complaint of left-sided nontraumatic neck pain that has been ongoing over the past 2 days. Patient states that yesterday morning she noticed a pain in her left neck that is worsened over the past day. States that pain is exacerbated with range of motion of the neck. She denies radiation of pain, chest pain, shortness of breath, difficulty breathing, upper extremity paresthesias or weakness. she has been taking her eliquis as prescribed. states she took motrin yesterday for her symptoms with minimal relief. 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 - Related Data Home Medications Medication Instructions Recorded Confirmed ALPRAZolam [Xanax] 0.25 mg PO Q12H PRN 04/14/16 02/19/24 HYDROcodone/APAP 10-325MG [[place] 1 tab PO TID PRN 04/14/16 02/19/24 10-325] Montelukast [Singulair] 10 mg PO HS 04/14/16 02/19/24 Albuterol Nebulized [Ventolin 2.5 mg INHALATION RT-QID PRN 02/19/24 02/19/24 Nebulized] Albuterol Sulfate [Proair Hfa] 2 puff INHALATION RT-Q4H PRN 02/19/24 02/19/24 Cetirizine HCl [Zyrtec] 10 mg PO HS 02/19/24 02/19/24 Dicyclomine [Bentyl] 20 mg PO QID 02/19/24 02/19/24 Ezetimibe [Zetia] 10 mg PO HS 02/19/24 02/19/24 Pantoprazole [Protonix] 40 mg PO BID 02/19/24 02/19/24 Previous Rx's Medication Instructions Recorded Apixaban [Eliquis Starter Pack 5 - 10 mg PO DIRECTED 30 Days 02/21/24 (for VTE)] #1 each Cyclobenzaprine [Flexeril] 5 mg PO TID PRN #15 tablet 02/29/24 Allergies Allergy/AdvReac Type Severity Reaction Status Date / Time Penicillins Allergy Rash/Hives Verified 02/29/24 09:36 Sulfa (Sulfonamide Allergy Rash/Hives Verified 02/29/24 09:36 Antibiotics) Review of Systems ROS Statement: Those systems with pertinent positive or pertinent negative responses have been documented in the HPI. ROS Other: All systems not noted in ROS Statement are negative. Past Medical History Past Medical History: Asthma, GERD/Reflux, Thyroid Disorder Additional Past Medical History / Comment(s): Lower back pain and right leg cramping when driving. History of Any Multi-Drug Resistant Organisms: None Reported Past Surgical History: Bladder Surgery, Breast Surgery, Hysterectomy Additional Past Surgical History / Comment(s): THYROIDECTOMY. Past Anesthesia/Blood Transfusion Reactions: No Reported Reaction Past Psychological History: No Psychological Hx Reported Smoking Status: Never smoker Past Alcohol Use History: None Reported Past Drug Use History: None Reported - Past Family History Mother Family Medical History: No Reported History Father Family Medical History: No Reported History General Exam Limitations: no limitations Eye exam: Present: normal appearance, PERRL, EOMI. Absent: scleral icterus, conjunctival injection, periorbital swelling Expanded Neck exam: Present: tenderness (left mid neck). Absent: midline deformity, anterior neck swelling, thyroid mass, carotid bruit, tracheal deviation Respiratory exam: Present: normal lung sounds bilaterally. Absent: respiratory distress, wheezes, rales, rhonchi, stridor Cardiovascular Exam: Present: regular rate, normal rhythm, normal heart sounds. Absent: systolic murmur, diastolic murmur, rubs, gallop, clicks GI/Abdominal exam: Present: soft, normal bowel sounds. Absent: distended, tenderness, guarding, rebound, rigid Extremities exam: Present: normal inspection, full ROM, normal capillary refill. Absent: tenderness, pedal edema, joint swelling, calf tenderness Neurological exam: Present: alert, oriented X3, CN II-XII intact Course Vital Signs 02/29/24 02/29/24 09:34 12:32 Temperature 98.2 F Pulse Rate 68 60 Respiratory 18 18 Rate Blood Pressure 135/75 126/80 O2 Sat by Pulse 100 100 Oximetry Medical Decision Making - Medical Decision Making Was pt. sent in by a medical professional or institution (JUSTIN Medina, VICE PRESIDENT OF ADVERTISING, urgent care, hospital, or group home...) When possible be specific @ -No Did you speak to anyone other than the patient for history (EMS, parent, family, police, friend...)? What history was obtained from this source @ -No Did you review nursing and triage notes (agree or disagree)? Why? @ -I reviewed and agree with nursing and triage notes Were old charts reviewed (outside hosp., previous admission, EMS record, old E KG, old radiological studies, urgent care reports/EKG's, group home records)? Report findings @ -Reviewed patient's chart note from 02/19/2024 which were diagnosed with PE and started on anticoagulation. Differential Diagnosis (chest pain, altered mental status, abdominal pain women, abdominal pain men, vaginal bleeding, weakness, fever, dyspnea, syncope, headache, dizziness, GI bleed, back pain, seizure, CVA, palpatations, mental health, musculoskeletal)? @ -Neck sprain, laryngitis, flu, this list is not all inclusive EKG interpreted by me (3pts min.). @ -None X-rays interpreted by me (1pt min.). @ -None done CT interpreted by me (1pt min.). @ -None done U/S interpreted by me (1pt. min.). @ -None done What testing was considered but not performed or refused? (CT, X-rays, U/S, labs)? Why? @ -None What meds were considered but not given or refused? Why? @ -None Did you discuss the management of the patient with other professionals (professionals i.e. JUSTIN Medina, VICE PRESIDENT OF ADVERTISING, lab, RT, psych nurse, social service coordinator, grape crusher, teacher, public information officer, disability case manager)? Give summary @ -No Was smoking cessation discussed for >3mins.? @ -No Was critical care preformed (if so, how long)? @ -No Were there social determinants of health that impacted care today? How? (Homelessness, low income, unemployed, alcoholism, drug addiction, transportation, low edu. Level, literacy, decrease access to med. care, intermediate, rehab)? @ -No Was there de-escalation of care discussed even if they declined (Discuss DNR or withdrawal of care, Hospice)? DNR status @ -No What co-morbidities impacted this encounter? (DM, HTN, Smoking, COPD, CAD, Cancer, CVA, ARF, Chemo, Hep., AIDS, mental health diagnosis, sleep apnea, morbid obesity)? @ -None Was patient admitted / discharged? Hospital course, mention meds given and rou te, prescriptions, significant lab abnormalities, going to OR and other pertinent info. @ -Discharge. 63-year-old female presenting with left-sided neck pain. On my evaluation the patient is resting company no signs acute distress. Vitals are stable. Her neck pain is reproducible on palpation and with range of motion. Patient is not exhibiting signs of upper extremity paresthesias or weakness. Neurovascular intact. There is minimal clinical concern for cardiac cause or neurological cause as patient's symptoms are exacerbated on range of motion with palpation consistent with musculoskeletal injury. She is provided with Tylenol and muscle relaxer. On reevaluation states that she is feeling better. Patient is provided prescription for Flexeril instructed continue Tylenol as needed. Within the patient does not use NSAIDs such as Motrin or ibuprofen as she is on Eliquis. Case discussed with Dr. Del Toro Undiagnosed new problem with uncertain prognosis? @ -No Drug Therapy requiring intensive monitoring for toxicity (Heparin, Nitro, Insulin, Cardizem)? @ -No Were any procedures done? @ -No Diagnosis/symptom? @ -Neck sprain Acute, or Chronic, or Acute on Chronic? @ -Acute Uncomplicated (without systemic symptoms) or Complicated (systemic symptoms)? @ -uncomplicated Side effects of treatment? @ -No Exacerbation, Progression, or Severe Exacerbation? @ -No Poses a threat to life or bodily function? How? (Chest pain, [place], [place], pneumonia, PE, COPD, DKA, ARF, appy, cholecystitis, CVA, Diverticulitis, Homicidal, Suicidal, threat to staff... and all critical care pts) @ -No Disposition Clinical Impression: Neck pain Disposition: HOME SELF-CARE Condition: Good Instructions (If sedation given, give patient instructions): Acute Neck Pain (ED) Additional Instructions: Please return to the Emergency Department if symptoms worsen or any other concerns. Prescriptions: Cyclobenzaprine [Flexeril] 5 mg PO TID PRN #15 tablet PRN Reason: Muscle Spasm Is patient prescribed a controlled substance at d/c from ED?: No Referrals: Ana Vievros MD [Primary Care Provider] - 1-2 days Time of Disposition: 11:47
[2024-02-29] MEDS: ACETAMINOPHEN TAB 325 MG TAB PO STA (11:03)
[2024-02-29] MEDS: ORPHENADRINE 30 MG/ML 2 ML VIAL IM STA (11:03)
[2024-02-29 12:33] VITALS: BP 126/80; PULSE 60
== END 2024-02-29 12:34 | disposition home or self-care (01) ==
LOC: EC 09:30
DX: S13.9XXA Sprain of joints and ligaments of unspecified parts of neck, initial encounter (principal); Z88.0 Allergy status to penicillin; Z88.2 Allergy status to sulfonamides; X58.XXXA Exposure to other specified factors, initial encounter
CPT/HCPCS: 99283; 96372; J2360

== ENCOUNTER 2024-07-04 04:49 | Emergency (ER) | payer MEDICAID ==
--- NOTE | 2024-07-04 05:08 | ED ---
Abdominal Pain HPI <Maria Guadalupe Salgado Rafy - Last Filed: 07/04/24 11:13> - General Source: patient, RN notes reviewed, old records reviewed Mode of arrival: ambulatory Limitations: no limitations - History of Present Illness MD Complaint: abdominal pain -: days(s) Location: suprapubic Radiation: suprapubic Migration to: suprapubic Severity: moderate Severity scale (1-10): 4 Quality: aching Consistency: constant Improves With: nothing Worsens With: nothing Associated Symptoms: nausea Treatments Prior to Arrival: other <Olegario Lehman - Last Filed: 07/07/24 19:42> - General Chief Complaint: Abdominal Pain Stated Complaint: Vomiting Time Seen by Provider: 07/04/24 05:06 - History of Present Illness Initial Comments: This is a 63 female to the ER for evaluation this patient presents today for evaluation regards to abdominal pain severe nausea vomiting and diarrhea. 2 hours of persistent and consistent abdominal pain with diarrhea no fevers nausea no vomiting. She believes it may be related to food she ate yesterday no travel history no known sick contacts no family is with similar complaints (Olegario Lehman) - Related Data Home Medications Medication Instructions Recorded Confirmed ALPRAZolam [Xanax] 0.25 mg PO Q12H PRN 04/14/16 02/19/24 HYDROcodone/APAP 10-325MG [[place] 1 tab PO TID PRN 04/14/16 02/19/24 10-325] Montelukast [Singulair] 10 mg PO HS 04/14/16 02/19/24 Albuterol Nebulized [Ventolin 2.5 mg INHALATION RT-QID PRN 02/19/24 02/19/24 Nebulized] Albuterol Sulfate [Proair Hfa] 2 puff INHALATION RT-Q4H PRN 02/19/24 02/19/24 Cetirizine HCl [Zyrtec] 10 mg PO HS 02/19/24 02/19/24 Dicyclomine [Bentyl] 20 mg PO QID 02/19/24 02/19/24 Ezetimibe [Zetia] 10 mg PO HS 02/19/24 02/19/24 Pantoprazole [Protonix] 40 mg PO BID 12/23/24 12/23/24 Previous Rx's Medication Instructions Recorded Apixaban [Eliquis Starter Pack 5 - 10 mg PO DIRECTED 30 Days 02/21/24 (for VTE)] #1 each Cyclobenzaprine [Flexeril] 5 mg PO TID PRN #15 tablet 02/29/24 Diphenoxylate HCl/Atropine 1 each PO Q8HR PRN #15 tab 07/04/24 [Lomotil 2.5-0.025 mg Tablet] Ondansetron Odt [Zofran Odt] 4 mg PO Q8HR PRN #20 tab 07/04/24 Allergies Allergy/AdvReac Type Severity Reaction Status Date / Time Penicillins Allergy Rash/Hives Verified 02/29/24 09:36 Sulfa (Sulfonamide Allergy Rash/Hives Verified 02/29/24 09:36 Antibiotics) Review of Systems ROS Other: All systems not noted in ROS Statement are negative. <Maria Guadalupe Salgado - Last Filed: 07/04/24 11:13> ROS Other: All systems not noted in ROS Statement are negative. <Olegario Lehman - Last Filed: 07/07/24 19:42> ROS Statement: Those systems with pertinent positive or pertinent negative responses have been documented in the HPI. Past Medical History Past Medical History: Asthma, GERD/Reflux, Thyroid Disorder Additional Past Medical History / Comment(s): Lower back pain and right leg cramping when driving. History of Any Multi-Drug Resistant Organisms: None Reported Past Surgical History: Bladder Surgery, Breast Surgery, Hysterectomy Additional Past Surgical History / Comment(s): THYROIDECTOMY. Past Anesthesia/Blood Transfusion Reactions: No Reported Reaction Past Psychological History: No Psychological Hx Reported Smoking Status: Never smoker Past Alcohol Use History: None Reported Past Drug Use History: None Reported - Past Family History Mother Family Medical History: No Reported History Father Family Medical History: No Reported History <Olegario Lehman - Last Filed: 07/07/24 19:42> General Exam Limitations: no limitations General appearance: alert, in no apparent distress Head exam: Present: atraumatic, normocephalic, normal inspection Eye exam: Present: normal appearance, PERRL, EOMI. Absent: scleral icterus, conjunctival injection, periorbital swelling ENT exam: Present: normal exam, mucous membranes moist Neck exam: Present: normal inspection. Absent: tenderness, meningismus, lymphadenopathy Respiratory exam: Present: normal lung sounds bilaterally. Absent: respiratory distress, wheezes, rales, rhonchi, stridor Cardiovascular Exam: Present: regular rate, normal rhythm, normal heart sounds. Absent: systolic murmur, diastolic murmur, rubs, gallop, clicks GI/Abdominal exam: Present: soft, normal bowel sounds. Absent: distended, tenderness, guarding, rebound, rigid Extremities exam: Present: normal inspection, full ROM, normal capillary refill. Absent: tenderness, pedal edema, joint swelling, calf tenderness Back exam: Present: normal inspection Neurological exam: Present: alert, oriented X3, CN II-XII intact Psychiatric exam: Present: normal affect, normal mood Skin exam: Present: warm, dry, intact, normal color. Absent: rash <Olegario eLhman - Last Filed: 07/07/24 19:42> Course <Olegario Lehman - Last Filed: 07/07/24 19:42> Vital Signs 07/04/24 07/04/24 07/04/24 04:51 06:47 09:23 Temperature 97.6 F 97.9 F Pulse Rate 78 84 70 Respiratory 18 16 18 Rate Blood Pressure 146/93 130/82 120/75 O2 Sat by Pulse 99 99 99 Oximetry 07/04/24 07/04/24 10:28 11:48 Temperature 97.8 F Pulse Rate 76 80 Respiratory 18 18 Rate Blood Pressure 120/75 116/76 O2 Sat by Pulse 100 100 Oximetry - Reevaluation(s) Reevaluation #1: 07/04/24 06:32 Medical records reviewed (Olegario Lehman) Reevaluation #2: Patient symptoms improved here in the ER (Olegario Lehman) Reevaluation #3: Patient informed of results questions answered (Olegario Lehman) Reevaluation #4: Was pt. sent in by a medical professional or institution (, PA, COO, urgent care, hospital, or shelter...) When possible be specific @ -no Did you speak to anyone other than the patient for history (EMS, parent, family, police, friend...)? What history was obtained from this source @ -no Did you review nursing and triage notes (agree or disagree)? Why? @ -agree Are old charts reviewed (outside hosp., previous admission, EMS record, old EKG, old radiological studies, urgent care reports/EKG's, shelter records)? Report findings @ -yes Differential Diagnosis (chest pain, altered mental status, abdominal pain women, abdominal pain men, vaginal bleeding, weakness, fever, dyspnea, syncope, headache, dizziness, GI bleed, back pain, seizure, CVA, palpatations, mental health, musculoskeletal)? @ -prior EKG interpreted by me (3pts min.). @ -yes X-rays interpreted by me (1pt min.). @ -no CT interpreted by me (1pt min.). @ -yes negative for acute disease U/S interpreted by me (1pt. min.). @ -no What testing was considered but not performed or refused? (CT, X-rays, U/S, labs)? Why? @ -none What meds were considered but not given or refused? Why? @ -none Did you discuss the management of the patient with other professionals (professionals i.e. , PA, COO, lab, RT, psych nurse, social security benefits interviewer, fabric cutter, teacher, purchasing officer, social work case manager)? Give summary @ -no Was smoking cessation discussed for >3mins.? @ -no Was critical care preformed (if so, how long)? @ -no Were there social determinants of health that impacted care today? How? (Homelessness, low income, unemployed, alcoholism, drug addiction, transport ation, low edu. Level, literacy, decrease access to med. care, [facility], rehab)? @ -none Was there de-escalation of care discussed even if they declined (Discuss DNR or withdrawal of care, Hospice)? DNR status @ -no What co-morbidities impacted this encounter? (DM, HTN, Smoking, COPD, CAD, Cancer, CVA, ARF, Chemo, Hep., AIDS, mental health diagnosis, sleep apnea, morbid obesity)? @ -none Was patient admitted / discharged? Hospital course, mention meds given and route, prescriptions, significant lab abnormalities, going to OR and other pertinent info. @ -63 female with nausea vomiting diarrhea abdominal pain. Symptoms improved throughout ER stay CT scan negative lab testing is negative patient can be discharged home Discharge Undiagnosed new problem with uncertain prognosis? @ -no Drug Therapy requiring intensive monitoring for toxicity (Heparin, Nitro, Insulin, Cardizem)? @ -no Were any procedures done? @ -no Diagnosis/symptom? @ -nausea vomiting diarrhea Acute, or Chronic, or Acute on Chronic? @ -Acute Uncomplicated (without systemic symptoms) or Complicated (systemic symptoms)? @ -Complicated Side effects of treatment? @ -no Exacerbation, Progression, or Severe Exacerbation? @ -exacerbation Poses a threat to life or bodily function? How? (Chest pain, [place], [place], pneumonia, PE, COPD, DKA, ARF, appy, cholecystitis, CVA, Diverticulitis, Homicidal, Suicidal, threat to staff... and all critical care pts) @ -no (Olegario Lehman) Reevaluation #5: Differential Abdominal Pain Women: Appendicitis, Cholecystitis, diverticulosis, ischemic bowel, pancreatitis, hepatitis, UTI, gastroenteritis, AAA, incarcerated hernia, bowel obstruction, constipation, inflammatory bowel, hepatitis, peptic ulcer disease, splenic infarction, perforated viscus, vulvitis, ovarian torsion, PID, kidney stone, placenta abruption, this is not meant to be an all-inclusive list (Olegario Lehman) Medical Decision Making - Lab Data Result diagrams: 07/04/24 05:40 07/04/24 05:40 <Maria Guadalupe Salgado - Last Filed: 07/04/24 11:13> - Lab Data Result diagrams: 07/04/24 05:40 07/04/24 05:40 - Radiology Data Radiology results: report reviewed (CT abdomen pelvis negative for acute disease), image reviewed <Olegario Lehman - Last Filed: 07/07/24 19:42> - Medical Decision Making 63 female to the ER for evaluation of nausea vomiting diarrhea. Patient is feeling improved here in the ER and can be discharged home (Olegario Lehman) - Lab Data Lab Results 07/04/24 07/04/24 07/04/24 Range/Units 05:40 05:40 05:40 WBC 14.19 H (4.50-10.00) 10*3/uL RBC 5.09 (4.10-5.20) 10*6/uL Hgb 14.6 (12.0-15.0) g/dL Hct 44.8 (37.2-46.3) % MCV 88.0 (80.0-97.0) fL MCH 28.7 (27.0-32.0) pg MCHC 32.6 (32.0-37.0) g/dL Plt Count 334 (140-440) 10*3/uL MPV 9.8 (9.5-12.2) fL Immature Gran % (Auto) 0.3 % Neutrophils % 76.3 % Lymphocytes % 19.1 % Monocytes % 3.5 % Eosinophils % 0.5 % Basophils % 0.3 % Immature Gran # 0.04 (0.00-0.04) 10*3/uL Neutrophils # 10.83 H (1.80-7.70) 10*3/uL Lymphocytes # 2.71 (0.90-5.00) 10*3/uL Monocytes # 0.50 (0.20-1.00) 10*3/uL Eosinophils # 0.07 (0.04-0.35) 10*3/uL Basophils # 0.04 (0.00-0.10) 10*3/uL PT 10.6 (10.0-12.5) sec INR 1.0 (<1.2) APTT 22.0 (22.0-30.0) sec Sodium 139 (137-145) mmol/L Potassium 3.5 (3.5-5.1) mmol/L Chloride 100 (98-107) mmol/L Carbon Dioxide 25 (22-30) mmol/L Anion Gap 14 mmol/L BUN 13 (7-17) mg/dL Creatinine 0.77 (0.52-1.04) mg/dL Est GFR (CKD-EPI)AfAm >90 (>60 ml/min/1.73 sqM) Est GFR (CKD-EPI)NonAf 81 (>60 ml/min/1.73 sqM) Glucose 144 H (74-99) mg/dL Plasma Lactic Acid Sushant (0.7-2.0) mmol/L Calcium 10.3 H (8.4-10.2) mg/dL Total Bilirubin 0.9 (0.2-1.3) mg/dL AST 31 (14-36) U/L ALT 13 (4-34) U/L Alkaline Phosphatase 89 (38-126) U/L Total Protein 8.6 H (6.3-8.2) g/dL Albumin 5.0 (3.5-5.0) g/dL Amylase 88 (30-110) U/L Lipase 201 (23-300) U/L Urine Color Urine Appearance (Clear) Urine pH (5.0-8.0) Ur Specific Unity (1.001-1.035) Urine Protein (Negative) Urine Glucose (UA) (Negative) Urine Ketones (Negative) Urine Blood (Negative) Urine Nitrite (Negative) Urine Bilirubin (Negative) Urine Urobilinogen (<2.0) mg/dL Ur Leukocyte Esterase (Negative) Urine RBC (0-5) /hpf Urine WBC (0-5) /hpf Ur Squamous Epith Cells (0-4) /hpf Urine Mucus (None) /hpf 07/04/24 07/04/24 Range/Units 05:40 08:42 WBC (4.50-10.00) 10*3/uL RBC (4.10-5.20) 10*6/uL Hgb (12.0-15.0) g/dL Hct (37.2-46.3) % MCV (80.0-97.0) fL MCH (27.0-32.0) pg MCHC (32.0-37.0) g/dL Plt Count (140-440) 10*3/uL MPV (9.5-12.2) fL Immature Gran % (Auto) % Neutrophils % % Lymphocytes % % Monocytes % % Eosinophils % % Basophils % % Immature Gran # (0.00-0.04) 10*3/uL Neutrophils # (1.80-7.70) 10*3/uL Lymphocytes # (0.90-5.00) 10*3/uL Monocytes # (0.20-1.00) 10*3/uL Eosinophils # (0.04-0.35) 10*3/uL Basophils # (0.00-0.10) 10*3/uL PT (10.0-12.5) sec INR (<1.2) APTT (22.0-30.0) sec Sodium (137-145) mmol/L Potassium (3.5-5.1) mmol/L Chloride (98-107) mmol/L Carbon Dioxide (22-30) mmol/L Anion Gap mmol/L BUN (7-17) mg/dL Creatinine (0.52-1.04) mg/dL Est GFR (CKD-EPI)AfAm (>60 ml/min/1.73 sqM) Est GFR (CKD-EPI)NonAf (>60 ml/min/1.73 sqM) Glucose (74-99) mg/dL Plasma Lactic Acid Ssuhant 1.5 (0.7-2.0) mmol/L Calcium (8.4-10.2) mg/dL Total Bilirubin (0.2-1.3) mg/dL AST (14-36) U/L ALT (4-34) U/L Alkaline Phosphatase (38-126) U/L Total Protein (6.3-8.2) g/dL Albumin (3.5-5.0) g/dL Amylase (30-110) U/L Lipase (23-300) U/L Urine Color Light Yellow Urine Appearance Clear (Clear) Urine pH 5.0 (5.0-8.0) Ur Specific [place] >1.050 H (1.001-1.035) Urine Protein Trace H (Negative) Urine Glucose (UA) Negative (Negative) Urine Ketones Negative (Negative) Urine Blood Negative (Negative) Urine Nitrite Negative (Negative) Urine Bilirubin Negative (Negative) Urine Urobilinogen <2.0 (<2.0) mg/dL Ur Leukocyte Esterase Moderate H (Negative) Urine RBC 4 (0-5) /hpf Urine WBC 4 (0-5) /hpf Ur Squamous Epith Cells 3 (0-4) /hpf Urine Mucus Rare H (None) /hpf Disposition Is patient prescribed a controlled substance at d/c from ED?: Yes When asked, does pt state using other controlled substances?: No If prescribed controlled substance>3 days was MAPS reviewed?: Prescribed <3 Days Time of Disposition: 11:39 <Maria Guadalupe Salgado - Last Filed: 07/04/24 11:13> <Olegario Lehman - Last Filed: 07/07/24 19:42> Clinical Impression: Nausea and vomiting, Diarrhea Disposition: HOME SELF-CARE Condition: Stable Instructions (If sedation given, give patient instructions): Acute Nausea and Vomiting (ED), Acute Diarrhea (ED) Additional Instructions: The nausea and diarrhea medications as they are instructed. Follow-up with your doctor in 2 to 4 days to have reevaluation of your symptoms. Return to the emergency department should you have any new or worsening symptoms Prescriptions: Diphenoxylate HCl/Atropine [Lomotil 2.5-0.025 mg Tablet] 1 each PO Q8HR PRN #15 tab PRN Reason: Diarrhea Ondansetron Odt [Zofran Odt] 4 mg PO Q8HR PRN #20 tab PRN Reason: Nausea Referrals: Ana Viveros MD [Primary Care Provider] - 1-2 days
[2024-07-04] MEDS: PANTOPRAZOLE 40 MG/10 ML VIAL IVP STA (05:34)
[2024-07-04] MEDS: SODIUM CHLORIDE 0.9% 1,000 ML IV ONE (05:34)
[2024-07-04] MEDS: ONDANSETRON 4 MG/2 ML VIAL IVP STA (05:34)
[2024-07-04 05:47] LABS: Basophils # (A) 0.04 10*3/uL (0.00-0.10); Basophils % (A) 0.3 %; Eosinophils # (A) 0.07 10*3/uL (0.04-0.35); Eosinophils % (A) 0.5 %; HCT 44.8 % (37.2-46.3); HGB 14.6 g/dL (12.0-15.0); Lymphocytes # (A) 2.71 10*3/uL (0.90-5.00); Lymphocytes % (A) 19.1 %; MCH 28.7 pg (27.0-32.0); MCHC 32.6 g/dL (32.0-37.0); Mean Platelet Volume 9.8 fL (9.5-12.2); Monocytes % (A) 3.5 %; Neutrophils # (A) 10.83 10*3/uL (1.80-7.70); Neutrophils % (A) 76.3 %; Platelet Count 334 10*3/uL (140-440); RBC 5.09 10*6/uL (4.10-5.20); RDW 12.1 % (11.5-14.5); WBC 14.19 10*3/uL (4.50-10.00)
[2024-07-04 06:09] LABS: Prothrombin Time 10.6 sec (10.0-12.5)
[2024-07-04 06:37] LABS: ALT 13 U/L (4-34); African American GFR (CKD) >90 (>60 ml/min/1.73 sqM); Amylase 88 U/L (30-110); Anion Gap 14 mmol/L; Blood Urea Nitrogen 13 mg/dL (7-17); Calcium 10.3 mg/dL (8.4-10.2); Carbon Dioxide 25 mmol/L (22-30); Chloride 100 mmol/L (98-107); Glucose 144 mg/dL (74-99); Lipase 201 U/L (23-300); Non-African American GFR(CKD) 81 (>60 ml/min/1.73 sqM); Sodium 139 mmol/L (137-145); Total Bilirubin 0.9 mg/dL (0.2-1.3); Total Protein 8.6 g/dL (6.3-8.2)
[2024-07-04 06:42] LABS: AST 31 U/L (14-36); Alkaline Phosphatase 89 U/L (38-126); Potassium 3.5 mmol/L (3.5-5.1)
--- NOTE | 2024-07-04 07:39 | CT ---
EXAMINATION TYPE: CT abdomen pelvis w con DATE OF EXAM: 07/04/2024 COMPARISON: Prior CT December 07, 2023 CLINICAL INDICATION: Female, 63 years old with history of abdominal pain, nausea, vomiting and diarrh ea, TECHNIQUE: CT scan of the abdomen and pelvis is performed with IV Contrast, patient injected with 100ml mL of Is ovue 300., (none if empty) Oral contrast used: without Oral Contrast (none if empty) CT DLP: 1390.9 mGycm, Automated exposure control for dose reduction was used. FINDINGS: LUNG BASES: No significant abnormality is appreciated. LIVER/GB: Dependent gallstones. Gallbladder shows no surrounding inflammatory change. PANCREAS: No significant abnormality is seen. SPLEEN: No significant abnormality is seen. ADRENALS: No significant abnormality is seen. KIDNEYS: Stable near 1.0 cm simple cortical cyst left kidney delayed axial image 25 that does not req uire follow-up. BOWEL: Slightly suboptimal without enteric contrast there appears to be mild to moderate wall thicken ing involving left-sided small bowel loops. There is mild vasa engorgement coronal image 38. There is fluid in the colon which is abnormal finding. No suspicious polyp or large bowel dilatation. Mild to moderate wall thickening gastric antrum. UTERUS/ADNEXA: Uterus is surgically absent. LYMPH NODES: No greater than 1cm abdominal or pelvic lymph nodes are appreciated. OSSEOUS STRUCTURES: [id number] narrowing of both hip joints. OTHER: Small fat-containing umbilical hernia redemonstrated. IMPRESSION: 1. Fluid in colon is consistent with diarrhea and/or mild uncomplicated colitis. 2. Suspect focal enteritis involving jejunal loops in the left abdomen. Possible acute gastritis at l evel of gastric antrum. Correlate clinically. [facility], , 07/04/2024 7:37 AM
[2024-07-04 09:10] LABS: Appearance,Urine Clear (Clear); Bilirubin,Urine Negative (Negative); Blood,Urine Negative (Negative); Color,Urine Light Yellow; Glucose,Urine (UA) Negative (Negative); Ketones,Urine Negative (Negative); Leukocyte Esterase,Urine Moderate (Negative); Mucus,Urine Rare /hpf; Nitrite,Urine Negative (Negative); Protein,Urine Trace (Negative); RBC,Urine 4 /hpf (0-5); Squamous Epithelial Cell,Urine 3 /hpf (0-4); Urobilinogen,Urine <2.0 mg/dL (<2.0); WBC,Urine 4 /hpf (0-5)
[2024-07-04 09:24] VITALS: RESP 18
[2024-07-04 09:44] LABS: Specific Gravity,Urine >1.050 (1.001-1.035)
[2024-07-04 10:29] VITALS: TEMP 97.8
[2024-07-04] MEDS: DIPHENOX-ATROP 2.5-0.025 MG 1 EACH TAB PO STA (11:21)
[2024-07-04 11:50] VITALS: BP 116/76; PULSE 80
== END 2024-07-04 11:49 | disposition home or self-care (01) ==
LOC: EC 04:49
DX: R11.2 Nausea with vomiting, unspecified (principal); R19.7 Diarrhea, unspecified; Z88.0 Allergy status to penicillin; Z88.2 Allergy status to sulfonamides
CPT/HCPCS: 36415; 80053; 82150; 83605; 83690; 85025; 85610; 85730; 81001; 74177; 99284; 96374; 96375; 96361; J2405; Q9967; J2470